=== PATIENT | female | born 1945 | race Caucasian/White ===

== ENCOUNTER 2017-08-28 08:04 | Day surgery (SDC) | payer MEDICARE, OTHER ==
[~2017-08-28] VITALS: Ht 165.1 cm; Wt 89.8 kg
[~2017-08-28 08:04] MED LIST: ACET325C5 PO; AMLO10TA2 PO; APIX5TAB PO; CALC600T12 PO; CETI10TA20 PO; DOCU100C37 PO; LISI1TAB6 PO
[2017-08-28 08:17] VITALS: BP 166/100
[2017-08-28] MEDS ORDERED: LACTATED RINGERS 1,000 ML IV PRN (08:20)
[2017-08-28] MEDS ORDERED: CLINDAMYCIN 600 MG/50 ML IVPB 50 ML IV ONE ×2 (08:30→09:18)
[2017-08-28] MEDS ORDERED: HEParin (CENTRAL IV FLUSH) 500 UNIT/5 ML SYR ONE (08:36)
[2017-08-28] MEDS ORDERED: 0.9% SODIUM CHLORIDE PF INJ 20 ML VIAL ONE (08:36)
[2017-08-28] MEDS ORDERED: fentaNYL INJECTION 100 MCG/2 ML AMP ONE (08:39)
[2017-08-28] MEDS ORDERED: MIDAZOLAM 2 MG/2 ML (VERSED) VIAL ONE (08:39)
[2017-08-28] MEDS ORDERED: proPOfol 200 MG/20 ML (DIPRIVAN) VIAL IV ONE (08:39)
[2017-08-28] MEDS ORDERED: ONDANSETRON 4 MG/2 ML (SDV) Z0FRAN IV ONE (08:45)
[2017-08-28] MEDS ORDERED: FAMOTIDINE 20MG/2ML IV (PEPCID) IV ONE (08:45)
[2017-08-28] MEDS ORDERED: LIDOCAINE/EPI 1%-1:200,000 (XYLOCAINE) 10 ML VIAL ONE (09:13)
[2017-08-28] MEDS ORDERED: FAMOTIDINE 20MG/2ML IV (PEPCID) ONE (09:18)
[2017-08-28] MEDS ORDERED: ONDANSETRON 4 MG/2 ML (SDV) Z0FRAN ONE (09:18)
--- NOTE | 2017-08-28 09:26 | Progress Note-Pre Operative ---
Pre-Operative Progress Note H&P Reviewed The H&P was reviewed, patient examined and no changes noted. Time Seen by Provider: 09:16 Date H&P Reviewed: August 28, 2017 Time H&P Reviewed: 09:18 Pre-Operative Diagnosis: BOB FALLON DO August 28, 2017 09:26
[2017-08-28] MEDS ORDERED: PROPOFOL INJECTION 50 ML IV ONE (10:03)
--- NOTE | 2017-08-28 10:17 | Progress Note-Post Operative ---
Post-Operative Progess Note Surgeon (s)/Mechanical Engineering Intern (s) Surgeon BOB JOHANSEN DO Mechanical Engineering Intern: none Pre-Operative Diagnosis Post-Operative Diagnosis Venous Insufficiency Procedure & Operative Findings Date of Procedure 08/28/17 Procedure Performed/Findings Barry-Cath placement with Flouroscopy guidance, right SC vein, right chest wall Anesthesia Type IV Sedation by PHLEBOTOMY TECH Estimated Blood Loss Estimated blood loss (mL): less than 5ml Specimens/Packing Specimens Removed none BOB JOHANSEN DO August 28, 2017 10:17
[2017-08-28] MEDS ORDERED: ACHD5005 PO (10:18)
--- NOTE | 2017-08-28 10:20 | Discharge Inst-Surgical ---
Discharge Inst-Surgical Depart Medication/Instructions New, Converted or Re-Newed RX: RX Given to Pt/Family Patient Instructions Follow up Appt: Make appointment for 1 week. Instructions: No lifting greater than 10 pounds. No strenuous activity. May shower in 24 hours, no tub bath or soaking. Use incentive spirometer at home as directed. No Smoking Skin/Wound Care: May remove bandages. You need to leave the Dermabond on over incision it will fall off on its own. Symptoms to Report: Appetite Changes, Extremity Discoloration, Numbness/Tingling, Swelling Increased , Bleeding Excessive, Eyesight Changes, Pain Increased, Urine Color Change, Constipation(Persistent), Fever over 101 degree F, Pain/Pressure in chest, Urinating Difficulty, Cough Up/Vomit Blood, Heart Beat Irreg/Pounding, Pain/ Pressure in jaw, Vaginal Bleeding Increase, Cramps in feet or legs, Lightheadedness, Pain/Pressure in shoulder, Diarrhea(Persistent), Memory Changes Suddenly, Questions/Concerns, Weight gain consecutive days, Dizziness/ Fainting, Nausea/Vomiting, Shortness of Breath, Weight gain over 2 pounds If questions or concerns contact your physician Or seek help at emergency department. Activity Activity as Tolerated: Yes Driving Instructions: No Driving/Refer to Dr. Ibarra Discharge Diet: No Restrictions If Any Problems/Questions/Issu: Contact Your Physician, Go to Emergency Room Skin/Wound Care Infection Signs and Symptoms: Increased Redness, Foul Odor of Wound, Increased Drainage, Skin Itchy or Has a Rash, Increased Swelling, Temperature Above 101 F Bathing Instructions: Shower Stitches/Leny/Dermabond Dis: BOB Salazar DO August 28, 2017 10:20
--- NOTE | 2017-08-28 10:24 | Anesthesia-General Post-Op ---
MAC Patient Condition Mental Status/LOC: Same as Preop Cardiovascular: Satisfactory Nausea/Vomiting: Absent Respiratory: Satisfactory Pain: Controlled Complications: Absent Post Op Complications Complications None Follow Up Care/Instructions Patient Instructions None needed. Anesthesiology Discharge Order Discharge Order Patient is doing well, no complaints, stable vital signs, no apparent adverse anesthesia problems. No complications reported per nursing. JENNY SIMMONS CRNA August 28, 2017 10:24
[2017-08-28 10:50] VITALS: BP 135/78
[2017-08-28 11:20] VITALS: BP 132/74
--- NOTE | 2017-08-28 11:21 | Diagnostic Imaging Report ---
INDICATION: Fluoroscopy or PowerPort placement. FINDINGS: A total of 6 seconds of fluoroscopy was provided in the OR for PowerPort placement. Images demonstrate a right subclavian port. The tip is difficult to see on this exam but appears to overlie the SVC. IMPRESSION: Fluoroscopy for PowerPort placement. Dictated by: Dictated on workstation # [id number]
--- NOTE | 2017-08-28 11:38 | Diagnostic Imaging Report ---
Indication: Port placement. Time of exam: 11:13 AM Right subclavian port has its tip at the SVC right atrial junction. No pneumothorax is seen. There is some linear scarring or atelectasis right perihilar region. Left lung is clear. No effusion is seen. Impression: Poor placement on the right, as described. No pneumothorax is seen. Dictated by: Dictated on workstation # [id number]
[2017-08-28 12:10] VITALS: BP 133/75
[2017-08-28 12:49] VITALS: BP 133/75
--- NOTE | 2017-08-28 18:53 | OPERATIVE REPORT ---
DATE OF SERVICE: 08/28/2017 PREOPERATIVE DIAGNOSES: 1. Venous insufficiency. 2. Endometrial cancer. POSTOPERATIVE DIAGNOSES: 1. Venous insufficiency. 2. Endometrial cancer. PROCEDURE: Port-A-Cath insertion in right anterior chest wall and right subclavian vein with fluoroscopy guidance. SURGEON: Federico Ovalle DO LATH HAND: None. ANESTHESIA: IV sedation by CHANNEL DIRECTOR. ESTIMATED BLOOD LOSS: Less than 5 mL. FLUIDS: Per anesthesia. POSTOPERATIVE CONDITION: Stable. INDICATION FOR PROCEDURE: The patient is a 71-year-old female, who unfortunately has some endometrial cancer and she has some venous insufficiency, needs chemotherapy and will need long-term access. FINDINGS: The patient had a Port-A-Cath placed in right anterior chest wall and right subclavian vein with fluoroscopy guidance. PROCEDURE NOTE: After informed consent was obtained, the patient was brought to the operating room, placed on the operating table in the supine position. She was sterilely prepped and draped in the normal fashion. Local lidocaine was used to infiltrate the right anterior chest wall as well as towards the right clavicle and then below this, the patient was placed slightly Trendelenburg and then advanced an 18-gauge finder needle with negative inspiration, cannulated the vein on the second attempt. Good flash of blood, removed the syringe, placed a guidewire down the needle using the Seldinger technique, it went in easily. I checked with fluoroscopy and the guidewire was down the superior vena cava, removed the needle, held this in place with a hemostat and then made a stab incision at the guidewire with #11 blade and then using a #11 blade to make a small incision in the right anterior chest wall to create a pocket for the port. Hemostasis was obtained using Bovie electrocautery and then created a pocket with Bovie electrocautery as well as blunt dissection. I was then able to use the tunneler to tunnel from the stab incision into this pocket previously created and then over the guidewire placed the dilator using the Seldinger technique, it went in easily, checked with fluoroscopy, it was in good position, removed the inner portion of the dilator as well as the guidewire and then placed the catheter down the dilator using Seldinger technique, checked with fluoroscopy, it was in good position, removed the dilator and then cut the catheter, attached the port to the catheter and then placed a locking mechanism. I then placed this into the pocket previously created, sutured this down to the pectoralis major muscle with a 3-0 Prolene suture and then accessed the port with a Boyce needle. Good flash of blood and then easily flushed with saline, removed the syringe and then aspirated again, I got a good flash of blood and then flushed with 2 mL of heparin. I then elected to close the incision, closing the subcutaneous tissue with 3-0 Vicryl with two interrupted sutures, closed the skin with 4-0 undyed Monocryl with 3 interrupted subcuticular stitches and then used another 4-0 undyed Monocryl single subcuticular stitch at the stab incision. The area was cleaned and dried. Dermabond was placed as well as a bandage. The patient was transferred to recovery room in stable condition. Sponge and needle counts are correct at the end of the case. A chest x-ray during the case, so no pneumothorax, catheter in good position. Job ID: [id number] DocumentID: [id number] Dictated Date: 08/28/2017 14:03:52 Performance Analyst Date: 08/28/2017 18:52:23 Dictated By: FEDERICO OVALLE DO
[2017-09-29] MEDS ORDERED: GABA-488 PO (10:51)
[2017-09-29] MEDS ORDERED: CYCL10TA9 PO (10:51)
[2017-09-29] MEDS ORDERED: ALPR0.254 PO (10:51)
[2017-09-29] MEDS ORDERED: ONDA8TAB12 PO (10:59)
[2017-09-29] MEDS ORDERED: DEXA4TAB PO (10:59)
[2017-09-29] MEDS ORDERED: POLY17PO6 PO (10:59)
[2017-09-29] MEDS ORDERED: ACET-2267 PO (11:02)
[2017-09-29] MEDS ORDERED: APIX5TAB PO ×3 (11:34→12:25)
[2017-09-29] MEDS ORDERED: RIVA20TA PO (11:59)
[2017-09-29] MEDS ORDERED: LEVO500T2 PO (11:59)
[2017-09-29] MEDS ORDERED: TRAM-42 PO (11:59)
== END 2017-08-28 12:49 | disposition home or self-care (01) ==
LOC: SDC 08:04
PROVIDERS: ATTEND Surgery
DX: C54.1 Malignant neoplasm of endometrium (principal); Z11.2 Encounter for screening for other bacterial diseases; I87.2 Venous insufficiency (chronic) (peripheral); Z88.1 Allergy status to other antibiotic agents; Z88.0 Allergy status to penicillin; Z88.5 Allergy status to narcotic agent
CPT/HCPCS: 71045; 87081

== ENCOUNTER 2017-10-26 09:20 | Outpatient (RCR) | payer MEDICARE, OTHER ==
[2017-08-31 10:11] LABS: BASOPHILS # (AUTO) 0.1 10^3/uL (0.0-0.1); BASOPHILS % (AUTO) 1 % (0-10); EOSINOPHILS # (AUTO) 0.6 10^3/uL (0.0-0.3); EOSINOPHILS % (AUTO) 7 % (0-10); HEMATOCRIT 45 % (35-52); HEMOGLOBIN 15.2 G/DL (11.5-16.0); LYMPHOCYTES # (AUTO) 2.2 X 10^3 (1.0-4.0); LYMPHOCYTES % (AUTO) 24 % (12-44); MEAN CORPUSCULAR HEMOGLOBIN 31 PG (25-34); MEAN CORPUSCULAR HGB CONC 34 G/DL (32-36); MEAN CORPUSCULAR VOLUME 92 FL (80-99); MEAN PLATELET VOLUME 11.5 FL (7.4-10.4); MONOCYTES # (AUTO) 0.7 X 10^3 (0.0-1.0); MONOCYTES % (AUTO) 8 % (0-12); NEUTROPHILS # (AUTO) 5.5 X 10^3 (1.8-7.8); NEUTROPHILS % (AUTO) 60 % (42-75); PLATELET COUNT 233 10^3/uL (130-400); RED BLOOD COUNT 4.87 10^6/uL (4.35-5.85); RED CELL DISTRIBUTION WIDTH 14.7 % (10.0-14.5); WHITE BLOOD COUNT 9.1 10^3/uL (4.3-11.0)
[2017-08-31 10:33] LABS: ALBUMIN 4.3 GM/DL (3.2-4.5); BILIRUBIN,TOTAL 0.5 MG/DL (0.1-1.0); CALCIUM 9.9 MG/DL (8.5-10.1); CREATININE SERUM 0.97 MG/DL (0.60-1.30); MAGNESIUM 2.3 MG/DL (1.8-2.4); POTASSIUM 4.1 MMOL/L (3.6-5.0); TOTAL PROTEIN 7.3 GM/DL (6.4-8.2)
[2017-09-13 15:02] LABS: BASOPHILS # (AUTO) 0.1 10^3/uL (0.0-0.1); BASOPHILS % (AUTO) 1 % (0-10); EOSINOPHILS # (AUTO) 0.7 10^3/uL (0.0-0.3); EOSINOPHILS % (AUTO) 6 % (0-10); HEMATOCRIT 43 % (35-52); HEMOGLOBIN 14.8 G/DL (11.5-16.0); LYMPHOCYTES # (AUTO) 3.7 X 10^3 (1.0-4.0); LYMPHOCYTES % (AUTO) 34 % (12-44); MEAN CORPUSCULAR HEMOGLOBIN 31 PG (25-34); MEAN CORPUSCULAR HGB CONC 34 G/DL (32-36); MEAN CORPUSCULAR VOLUME 92 FL (80-99); MEAN PLATELET VOLUME 11.3 FL (7.4-10.4); MONOCYTES # (AUTO) 1.6 X 10^3 (0.0-1.0); MONOCYTES % (AUTO) 15 % (0-12); NEUTROPHILS % (AUTO) 45 % (42-75); PLATELET COUNT 187 10^3/uL (130-400); RED BLOOD COUNT 4.71 10^6/uL (4.35-5.85); RED CELL DISTRIBUTION WIDTH 14.6 % (10.0-14.5); WHITE BLOOD COUNT 11.1 10^3/uL (4.3-11.0)
[2017-09-13 15:16] LABS: BUN/CREATININE RATIO 30; CALCIUM 9.7 MG/DL (8.5-10.1); CARBON DIOXIDE 23 MMOL/L (21-32); CHLORIDE 102 MMOL/L (98-107); CREATININE SERUM 0.86 MG/DL (0.60-1.30); GFR ESTIMATED > 60; GLUCOSE 111 MG/DL (70-105); POTASSIUM 3.7 MMOL/L (3.6-5.0); SODIUM 137 MMOL/L (135-145)
[2017-10-05 09:11] LABS: BASOPHILS # (AUTO) 0.1 10^3/uL (0.0-0.1); BASOPHILS % (AUTO) 1 % (0-10); EOSINOPHILS # (AUTO) 0.4 10^3/uL (0.0-0.3); EOSINOPHILS % (AUTO) 6 % (0-10); HEMATOCRIT 44 % (35-52); HEMOGLOBIN 14.8 G/DL (11.5-16.0); LYMPHOCYTES # (AUTO) 1.8 X 10^3 (1.0-4.0); LYMPHOCYTES % (AUTO) 28 % (12-44); MEAN CORPUSCULAR HEMOGLOBIN 31 PG (25-34); MEAN CORPUSCULAR HGB CONC 34 G/DL (32-36); MEAN CORPUSCULAR VOLUME 93 FL (80-99); MEAN PLATELET VOLUME 10.6 FL (7.4-10.4); MONOCYTES # (AUTO) 0.5 X 10^3 (0.0-1.0); MONOCYTES % (AUTO) 8 % (0-12); NEUTROPHILS # (AUTO) 3.5 X 10^3 (1.8-7.8); NEUTROPHILS % (AUTO) 56 % (42-75); PLATELET COUNT 277 10^3/uL (130-400); RED BLOOD COUNT 4.72 10^6/uL (4.35-5.85); RED CELL DISTRIBUTION WIDTH 14.8 % (10.0-14.5); WHITE BLOOD COUNT 6.2 10^3/uL (4.3-11.0)
[2017-10-05 09:29] LABS: ALBUMIN 4.2 GM/DL (3.2-4.5); BILIRUBIN,TOTAL 0.5 MG/DL (0.1-1.0); CALCIUM 10.3 MG/DL (8.5-10.1); CREATININE SERUM 1.03 MG/DL (0.60-1.30); MAGNESIUM 2.5 MG/DL (1.8-2.4); TOTAL PROTEIN 7.4 GM/DL (6.4-8.2)
[~2017-10-26] VITALS: Ht 137.2 cm; Wt 88.0 kg
[~2017-10-26 09:20] MED LIST changes: +ACET-2267 PO; +ACHD5005 PO; +ALPR0.254 PO; +CARBOPLATIN IV SCH; +CYCL10TA9 PO; +D5W IV SCH; +DEXA4TAB PO; +FAMOTIDINE 20MG/2ML IV (CANCER CTR) IV SCH; +FOSAPREPITANT DIMEGLUMINE 150 MG in NS (IVPB) CANCER CENTER ONLY 150 ML IV SCH; +GABA-488 PO; +LEVO500T2 PO; +LORazepam 0.5 MG (ATIVAN) TABLET CANCER CTR PO PRN; +LORazepam INJ 2 MG/ML VIAL CANCER CTR IV SCH; +NORMAL SALINE IV SCH; +NS IV 1000 ML (CANCER CTR) IV SCH; +ONDA8TAB12 PO; +PACLITAXEL IV SCH; +PALONOSETRON HCL 0.25 MG, DEXAMETHASONE PF INJ (CANCER C 10 MG in NS (IVPB) CANCER CENT... IV SCH; +PEGFILGRASTIM 6 MG/0.6ML NEULASTA SC SCH; +POLY17PO6 PO; +RIVA20TA PO; +TRAM-42 PO; +diphenhydrAMINE 25 MG TAB (BENADRYL) CANCER CENTER PO SCH; +diphenhydrAMINE 50 MG/ML INJ (CANCER CENTER) ONE
[2017-10-26 09:35] LABS: BASOPHILS # (AUTO) 0.1 10^3/uL (0.0-0.1); BASOPHILS % (AUTO) 1 % (0-10); EOSINOPHILS # (AUTO) 0.2 10^3/uL (0.0-0.3); EOSINOPHILS % (AUTO) 4 % (0-10); HEMATOCRIT 45 % (35-52); HEMOGLOBIN 14.7 G/DL (11.5-16.0); LYMPHOCYTES # (AUTO) 1.5 X 10^3 (1.0-4.0); LYMPHOCYTES % (AUTO) 25 % (12-44); MEAN CORPUSCULAR HEMOGLOBIN 31 PG (25-34); MEAN CORPUSCULAR HGB CONC 33 G/DL (32-36); MEAN CORPUSCULAR VOLUME 93 FL (80-99); MEAN PLATELET VOLUME 10.6 FL (7.4-10.4); MONOCYTES # (AUTO) 0.4 X 10^3 (0.0-1.0); MONOCYTES % (AUTO) 7 % (0-12); NEUTROPHILS % (AUTO) 64 % (42-75); PLATELET COUNT 188 10^3/uL (130-400); RED BLOOD COUNT 4.82 10^6/uL (4.35-5.85); WHITE BLOOD COUNT 6.2 10^3/uL (4.3-11.0)
[2017-10-26 09:52] LABS: BUN/CREATININE RATIO 15; CALCIUM 10.1 MG/DL (8.5-10.1); CARBON DIOXIDE 28 MMOL/L (21-32); CHLORIDE 105 MMOL/L (98-107); CREATININE SERUM 0.87 MG/DL (0.60-1.30); GFR ESTIMATED > 60; GLUCOSE 107 MG/DL (70-105); POTASSIUM 3.9 MMOL/L (3.6-5.0); SODIUM 141 MMOL/L (135-145)
[2017-11-02 09:33] LABS: BASOPHILS % (AUTO) 0 % (0-10); EOSINOPHILS % (AUTO) 0 % (0-10); HEMATOCRIT 44 % (35-52); HEMOGLOBIN 14.7 G/DL (11.5-16.0); LYMPHOCYTES # (AUTO) 0.6 X 10^3 (1.0-4.0); LYMPHOCYTES % (AUTO) 8 % (12-44); MEAN CORPUSCULAR HEMOGLOBIN 31 PG (25-34); MEAN CORPUSCULAR HGB CONC 34 G/DL (32-36); MEAN CORPUSCULAR VOLUME 92 FL (80-99); MEAN PLATELET VOLUME 10.7 FL (7.4-10.4); MONOCYTES % (AUTO) 0 % (0-12); NEUTROPHILS % (AUTO) 91 % (42-75); PLATELET COUNT 323 10^3/uL (130-400); RED BLOOD COUNT 4.74 10^6/uL (4.35-5.85); WHITE BLOOD COUNT 7.6 10^3/uL (4.3-11.0)
[2017-11-02 09:53] LABS: ALBUMIN 4.5 GM/DL (3.2-4.5); BILIRUBIN,TOTAL 0.4 MG/DL (0.1-1.0); CREATININE SERUM 1.07 MG/DL (0.60-1.30); TOTAL PROTEIN 7.5 GM/DL (6.4-8.2)
== END 2017-11-02 09:08 | disposition home or self-care (01) ==
LOC: ONC 09:20
PROVIDERS: ATTEND Internal Medicine Hematology & Oncology
DX: Z51.11 Encounter for antineoplastic chemotherapy (principal); C54.1 Malignant neoplasm of endometrium; C77.5 Secondary and unspecified malignant neoplasm of intrapelvic lymph nodes; I10 Essential (primary) hypertension; I27.82 Chronic pulmonary embolism; E66.01 Morbid (severe) obesity due to excess calories; Z68.42 Body mass index [BMI] 45.0-49.9, adult; Z76.89 Persons encountering health services in other specified circumstances; Z79.01 Long term (current) use of anticoagulants; Z79.899 Other long term (current) drug therapy; Z90.710 Acquired absence of both cervix and uterus
CPT/HCPCS: 36415; 80048; 80053; 83735; 84443; 85025; 96367; 96372; 96375; 96413; 96415; 96417; 99213; 99214

== ENCOUNTER 2018-01-05 13:42 | Outpatient (RCR) | payer MEDICARE, OTHER ==
[2017-11-09 14:01] LABS: BASOPHILS # (AUTO) 0.3 10^3/uL (0.0-0.1); BASOPHILS % (AUTO) 2 % (0-10); EOSINOPHILS # (AUTO) 0.7 10^3/uL (0.0-0.3); EOSINOPHILS % (AUTO) 5 % (0-10); HEMATOCRIT 44 % (35-52); HEMOGLOBIN 14.2 G/DL (11.5-16.0); LYMPHOCYTES % (AUTO) 20 % (12-44); MEAN CORPUSCULAR HEMOGLOBIN 31 PG (25-34); MEAN CORPUSCULAR HGB CONC 33 G/DL (32-36); MEAN CORPUSCULAR VOLUME 94 FL (80-99); MEAN PLATELET VOLUME 10.8 FL (7.4-10.4); MONOCYTES # (AUTO) 1.9 X 10^3 (0.0-1.0); MONOCYTES % (AUTO) 13 % (0-12); NEUTROPHILS # (AUTO) 9.2 X 10^3 (1.8-7.8); NEUTROPHILS % (AUTO) 61 % (42-75); PLATELET COUNT 239 10^3/uL (130-400); RED BLOOD COUNT 4.65 10^6/uL (4.35-5.85); WHITE BLOOD COUNT 15.1 10^3/uL (4.3-11.0)
[2017-11-09 14:20] LABS: CALCIUM 10.3 MG/DL (8.5-10.1); CREATININE SERUM 0.94 MG/DL (0.60-1.30); POTASSIUM 4.5 MMOL/L (3.6-5.0)
[2017-12-14 14:06] LABS: BASOPHILS % (AUTO) 1 % (0-10); EOSINOPHILS # (AUTO) 0.2 10^3/uL (0.0-0.3); EOSINOPHILS % (AUTO) 4 % (0-10); HEMATOCRIT 40 % (35-52); HEMOGLOBIN 13.3 G/DL (11.5-16.0); LYMPHOCYTES # (AUTO) 0.9 X 10^3 (1.0-4.0); LYMPHOCYTES % (AUTO) 13 % (12-44); MEAN CORPUSCULAR HEMOGLOBIN 31 PG (25-34); MEAN CORPUSCULAR HGB CONC 33 G/DL (32-36); MEAN CORPUSCULAR VOLUME 93 FL (80-99); MEAN PLATELET VOLUME 10.7 FL (7.4-10.4); MONOCYTES # (AUTO) 0.6 X 10^3 (0.0-1.0); MONOCYTES % (AUTO) 8 % (0-12); NEUTROPHILS % (AUTO) 74 % (42-75); PLATELET COUNT 163 10^3/uL (130-400); RED BLOOD COUNT 4.33 10^6/uL (4.35-5.85); WHITE BLOOD COUNT 6.7 10^3/uL (4.3-11.0)
[2017-12-14 14:25] LABS: ALANINE AMINOTRANSFERASE 240 U/L (0-55); ALBUMIN 4.1 GM/DL (3.2-4.5); ALKALINE PHOSPHATASE 100 U/L (40-136); BILIRUBIN,TOTAL 0.7 MG/DL (0.1-1.0); BUN/CREATININE RATIO 24; CALCIUM 9.6 MG/DL (8.5-10.1); CARBON DIOXIDE 26 MMOL/L (21-32); CHLORIDE 104 MMOL/L (98-107); CREATININE SERUM 0.83 MG/DL (0.60-1.30); GFR ESTIMATED > 60; GLUCOSE 105 MG/DL (70-105); MAGNESIUM 2.1 MG/DL (1.8-2.4); POTASSIUM 3.3 MMOL/L (3.6-5.0); SODIUM 138 MMOL/L (135-145); TOTAL PROTEIN 6.9 GM/DL (6.4-8.2)
[~2018-01-05] VITALS: Ht 137.2 cm; Wt 88.9 kg
[~2018-01-05 13:42] MED LIST changes: -AMLO10TA2 PO; +AMLO10TA6 PO; -LORazepam INJ 2 MG/ML VIAL CANCER CTR IV SCH; -diphenhydrAMINE 50 MG/ML INJ (CANCER CENTER) ONE
== END 2018-01-08 13:38 | disposition home or self-care (01) ==
LOC: ONC 13:42
PROVIDERS: ATTEND Internal Medicine Hematology & Oncology
DX: Z51.11 Encounter for antineoplastic chemotherapy (principal); C54.1 Malignant neoplasm of endometrium; C77.5 Secondary and unspecified malignant neoplasm of intrapelvic lymph nodes; I10 Essential (primary) hypertension; I27.82 Chronic pulmonary embolism; E66.01 Morbid (severe) obesity due to excess calories; Z68.42 Body mass index [BMI] 45.0-49.9, adult; Z79.01 Long term (current) use of anticoagulants; Z79.899 Other long term (current) drug therapy; Z90.710 Acquired absence of both cervix and uterus
CPT/HCPCS: 36591; 77290; 77300; 77301; 77334; 77336; 77338; 77386; 80048; 80053; 83735; 85025; 96367; 96372; 96375; 96413; 96415; 96417; 99204; 99211

== ENCOUNTER 2018-04-04 12:03 | Outpatient (RCR) | payer MEDICARE, OTHER ==
[2018-01-17 10:09] LABS: BASOPHILS % (AUTO) 1 % (0-10); EOSINOPHILS # (AUTO) 0.2 10^3/uL (0.0-0.3); EOSINOPHILS % (AUTO) 3 % (0-10); HEMATOCRIT 43 % (35-52); HEMOGLOBIN 14.6 G/DL (11.5-16.0); LYMPHOCYTES # (AUTO) 0.5 X 10^3 (1.0-4.0); LYMPHOCYTES % (AUTO) 7 % (12-44); MEAN CORPUSCULAR HEMOGLOBIN 32 PG (25-34); MEAN CORPUSCULAR HGB CONC 34 G/DL (32-36); MEAN CORPUSCULAR VOLUME 93 FL (80-99); MEAN PLATELET VOLUME 10.7 FL (7.4-10.4); MONOCYTES # (AUTO) 0.6 X 10^3 (0.0-1.0); MONOCYTES % (AUTO) 9 % (0-12); NEUTROPHILS # (AUTO) 5.1 X 10^3 (1.8-7.8); NEUTROPHILS % (AUTO) 81 % (42-75); PLATELET COUNT 229 10^3/uL (130-400); RED BLOOD COUNT 4.63 10^6/uL (4.35-5.85); RED CELL DISTRIBUTION WIDTH 14.9 % (10.0-14.5); WHITE BLOOD COUNT 6.3 10^3/uL (4.3-11.0)
[2018-01-17 10:47] LABS: ALANINE AMINOTRANSFERASE 101 U/L (0-55); ALBUMIN 4.1 GM/DL (3.2-4.5); ALKALINE PHOSPHATASE 129 U/L (40-136); BILIRUBIN,TOTAL 0.7 MG/DL (0.1-1.0); BUN/CREATININE RATIO 15; CALCIUM 9.7 MG/DL (8.5-10.1); CARBON DIOXIDE 23 MMOL/L (21-32); CHLORIDE 103 MMOL/L (98-107); CREATININE SERUM 0.91 MG/DL (0.60-1.30); GFR ESTIMATED > 60; GLUCOSE 110 MG/DL (70-105); POTASSIUM 3.4 MMOL/L (3.6-5.0); SODIUM 138 MMOL/L (135-145)
[2018-02-14 09:11] LABS: BASOPHILS % (AUTO) 0 % (0-10); EOSINOPHILS % (AUTO) 0 % (0-10); HEMATOCRIT 45 % (35-52); LYMPHOCYTES # (AUTO) 0.4 X 10^3 (1.0-4.0); LYMPHOCYTES % (AUTO) 4 % (12-44); MEAN CORPUSCULAR HEMOGLOBIN 31 PG (25-34); MEAN CORPUSCULAR HGB CONC 34 G/DL (32-36); MEAN CORPUSCULAR VOLUME 93 FL (80-99); MEAN PLATELET VOLUME 10.2 FL (7.4-10.4); MONOCYTES # (AUTO) 0.1 X 10^3 (0.0-1.0); MONOCYTES % (AUTO) 1 % (0-12); NEUTROPHILS # (AUTO) 7.6 X 10^3 (1.8-7.8); NEUTROPHILS % (AUTO) 95 % (42-75); PLATELET COUNT 219 10^3/uL (130-400); RED BLOOD COUNT 4.81 10^6/uL (4.35-5.85); RED CELL DISTRIBUTION WIDTH 14.3 % (10.0-14.5)
[2018-02-14 09:36] LABS: ALBUMIN 4.3 GM/DL (3.2-4.5); BILIRUBIN,TOTAL 0.5 MG/DL (0.1-1.0); CALCIUM 9.9 MG/DL (8.5-10.1); CREATININE SERUM 1.08 MG/DL (0.60-1.30); TOTAL PROTEIN 7.4 GM/DL (6.4-8.2)
[2018-02-21 13:14] LABS: BASOPHILS # (AUTO) 0.1 10^3/uL (0.0-0.1); BASOPHILS % (AUTO) 2 % (0-10); EOSINOPHILS # (AUTO) 0.4 10^3/uL (0.0-0.3); EOSINOPHILS % (AUTO) 7 % (0-10); HEMATOCRIT 44 % (35-52); HEMOGLOBIN 14.7 G/DL (11.5-16.0); LYMPHOCYTES % (AUTO) 15 % (12-44); MEAN CORPUSCULAR HEMOGLOBIN 31 PG (25-34); MEAN CORPUSCULAR HGB CONC 33 G/DL (32-36); MEAN CORPUSCULAR VOLUME 93 FL (80-99); MEAN PLATELET VOLUME 10.9 FL (7.4-10.4); MONOCYTES # (AUTO) 1.2 X 10^3 (0.0-1.0); MONOCYTES % (AUTO) 18 % (0-12); NEUTROPHILS # (AUTO) 3.7 X 10^3 (1.8-7.8); NEUTROPHILS % (AUTO) 58 % (42-75); PLATELET COUNT 137 10^3/uL (130-400); RED BLOOD COUNT 4.76 10^6/uL (4.35-5.85); RED CELL DISTRIBUTION WIDTH 14.7 % (10.0-14.5); WHITE BLOOD COUNT 6.4 10^3/uL (4.3-11.0)
[2018-02-21 13:33] LABS: CREATININE SERUM 1.01 MG/DL (0.60-1.30); POTASSIUM 3.9 MMOL/L (3.6-5.0)
[2018-02-27 09:16] LABS: BASOPHILS # (AUTO) 0.1 10^3/uL (0.0-0.1); BASOPHILS % (AUTO) 2 % (0-10); EOSINOPHILS # (AUTO) 0.2 10^3/uL (0.0-0.3); EOSINOPHILS % (AUTO) 4 % (0-10); HEMATOCRIT 44 % (35-52); HEMOGLOBIN 14.5 G/DL (11.5-16.0); LYMPHOCYTES # (AUTO) 0.8 X 10^3 (1.0-4.0); LYMPHOCYTES % (AUTO) 17 % (12-44); MEAN CORPUSCULAR HEMOGLOBIN 31 PG (25-34); MEAN CORPUSCULAR HGB CONC 33 G/DL (32-36); MEAN CORPUSCULAR VOLUME 94 FL (80-99); MEAN PLATELET VOLUME 10.4 FL (7.4-10.4); MONOCYTES # (AUTO) 0.3 X 10^3 (0.0-1.0); MONOCYTES % (AUTO) 7 % (0-12); NEUTROPHILS # (AUTO) 3.3 X 10^3 (1.8-7.8); NEUTROPHILS % (AUTO) 71 % (42-75); PLATELET COUNT 162 10^3/uL (130-400); RED BLOOD COUNT 4.68 10^6/uL (4.35-5.85); WHITE BLOOD COUNT 4.6 10^3/uL (4.3-11.0)
[2018-02-27 09:35] LABS: CALCIUM 10.1 MG/DL (8.5-10.1); CREATININE SERUM 0.92 MG/DL (0.60-1.30); POTASSIUM 3.8 MMOL/L (3.6-5.0)
[2018-03-08 08:52] LABS: BASOPHILS % (AUTO) 0 % (0-10); EOSINOPHILS % (AUTO) 0 % (0-10); HEMATOCRIT 42 % (35-52); HEMOGLOBIN 13.8 G/DL (11.5-16.0); LYMPHOCYTES # (AUTO) 0.4 X 10^3 (1.0-4.0); LYMPHOCYTES % (AUTO) 7 % (12-44); MEAN CORPUSCULAR HEMOGLOBIN 31 PG (25-34); MEAN CORPUSCULAR HGB CONC 33 G/DL (32-36); MEAN CORPUSCULAR VOLUME 94 FL (80-99); MEAN PLATELET VOLUME 9.9 FL (7.4-10.4); MONOCYTES % (AUTO) 0 % (0-12); NEUTROPHILS % (AUTO) 92 % (42-75); PLATELET COUNT 230 10^3/uL (130-400); RED BLOOD COUNT 4.48 10^6/uL (4.35-5.85); RED CELL DISTRIBUTION WIDTH 15.2 % (10.0-14.5); WHITE BLOOD COUNT 5.4 10^3/uL (4.3-11.0)
[2018-03-08 09:09] LABS: ALBUMIN 4.3 GM/DL (3.2-4.5); BILIRUBIN,TOTAL 0.4 MG/DL (0.1-1.0); CREATININE SERUM 0.96 MG/DL (0.60-1.30); MAGNESIUM 1.9 MG/DL (1.8-2.4); POTASSIUM 3.9 MMOL/L (3.6-5.0); TOTAL PROTEIN 7.2 GM/DL (6.4-8.2)
[2018-03-13 13:17] LABS: BASOPHILS # (AUTO) 0.1 10^3/uL (0.0-0.1); BASOPHILS % (AUTO) 1 % (0-10); EOSINOPHILS # (AUTO) 0.5 10^3/uL (0.0-0.3); EOSINOPHILS % (AUTO) 5 % (0-10); HEMATOCRIT 42 % (35-52); HEMOGLOBIN 13.7 G/DL (11.5-16.0); LYMPHOCYTES # (AUTO) 0.8 X 10^3 (1.0-4.0); LYMPHOCYTES % (AUTO) 9 % (12-44); MEAN CORPUSCULAR HEMOGLOBIN 32 PG (25-34); MEAN CORPUSCULAR HGB CONC 33 G/DL (32-36); MEAN CORPUSCULAR VOLUME 95 FL (80-99); MEAN PLATELET VOLUME 10.7 FL (7.4-10.4); MONOCYTES # (AUTO) 0.4 X 10^3 (0.0-1.0); MONOCYTES % (AUTO) 4 % (0-12); NEUTROPHILS # (AUTO) 7.9 X 10^3 (1.8-7.8); NEUTROPHILS % (AUTO) 81 % (42-75); PLATELET COUNT 143 10^3/uL (130-400); RED BLOOD COUNT 4.35 10^6/uL (4.35-5.85); WHITE BLOOD COUNT 9.8 10^3/uL (4.3-11.0)
[2018-03-13 13:42] LABS: BUN/CREATININE RATIO 23; CALCIUM 9.8 MG/DL (8.5-10.1); CARBON DIOXIDE 28 MMOL/L (21-32); CHLORIDE 102 MMOL/L (98-107); CREATININE SERUM 0.82 MG/DL (0.60-1.30); GFR ESTIMATED > 60; GLUCOSE 91 MG/DL (70-105); POTASSIUM 4.4 MMOL/L (3.6-5.0); SODIUM 140 MMOL/L (135-145)
[2018-03-21 09:50] LABS: BASOPHILS # (AUTO) 0.1 10^3/uL (0.0-0.1); BASOPHILS % (AUTO) 1 % (0-10); EOSINOPHILS # (AUTO) 0.2 10^3/uL (0.0-0.3); EOSINOPHILS % (AUTO) 5 % (0-10); HEMATOCRIT 42 % (35-52); HEMOGLOBIN 14.2 G/DL (11.5-16.0); LYMPHOCYTES # (AUTO) 0.7 X 10^3 (1.0-4.0); LYMPHOCYTES % (AUTO) 16 % (12-44); MEAN CORPUSCULAR HEMOGLOBIN 32 PG (25-34); MEAN CORPUSCULAR HGB CONC 34 G/DL (32-36); MEAN CORPUSCULAR VOLUME 95 FL (80-99); MEAN PLATELET VOLUME 9.9 FL (7.4-10.4); MONOCYTES # (AUTO) 0.3 X 10^3 (0.0-1.0); MONOCYTES % (AUTO) 7 % (0-12); NEUTROPHILS # (AUTO) 3.2 X 10^3 (1.8-7.8); NEUTROPHILS % (AUTO) 71 % (42-75); PLATELET COUNT 159 10^3/uL (130-400); RED BLOOD COUNT 4.44 10^6/uL (4.35-5.85); RED CELL DISTRIBUTION WIDTH 16.4 % (10.0-14.5); WHITE BLOOD COUNT 4.5 10^3/uL (4.3-11.0)
[2018-03-21 10:07] LABS: CALCIUM 9.7 MG/DL (8.5-10.1); CREATININE SERUM 0.96 MG/DL (0.60-1.30); POTASSIUM 3.9 MMOL/L (3.6-5.0)
[2018-03-28 08:48] LABS: BASOPHILS % (AUTO) 0 % (0-10); EOSINOPHILS % (AUTO) 0 % (0-10); HEMATOCRIT 41 % (35-52); HEMOGLOBIN 13.7 G/DL (11.5-16.0); LYMPHOCYTES # (AUTO) 0.4 X 10^3 (1.0-4.0); LYMPHOCYTES % (AUTO) 8 % (12-44); MEAN CORPUSCULAR HEMOGLOBIN 31 PG (25-34); MEAN CORPUSCULAR HGB CONC 33 G/DL (32-36); MEAN CORPUSCULAR VOLUME 94 FL (80-99); MONOCYTES % (AUTO) 1 % (0-12); NEUTROPHILS # (AUTO) 4.6 X 10^3 (1.8-7.8); NEUTROPHILS % (AUTO) 92 % (42-75); PLATELET COUNT 211 10^3/uL (130-400); RED BLOOD COUNT 4.37 10^6/uL (4.35-5.85); RED CELL DISTRIBUTION WIDTH 16.1 % (10.0-14.5); WHITE BLOOD COUNT 5.1 10^3/uL (4.3-11.0)
[2018-03-28 09:06] LABS: ALBUMIN 4.3 GM/DL (3.2-4.5); BILIRUBIN,TOTAL 0.4 MG/DL (0.1-1.0); CALCIUM 9.9 MG/DL (8.5-10.1); CREATININE SERUM 1.08 MG/DL (0.60-1.30); MAGNESIUM 2.1 MG/DL (1.8-2.4); TOTAL PROTEIN 7.2 GM/DL (6.4-8.2)
[~2018-04-04] VITALS: Ht 165.1 cm; Wt 88.0 kg
[~2018-04-04 12:03] MED LIST changes: +PALONOSETRON HCL 0.25 MG, DEXAMETHASONE INJECTION 10 MG in NS (IVPB) CANCER CENTER 50 ML IV SCH; -PALONOSETRON HCL 0.25 MG, DEXAMETHASONE PF INJ (CANCER C 10 MG in NS (IVPB) CANCER CENT... IV SCH
[2018-04-04 12:31] LABS: BASOPHILS # (AUTO) 0.1 10^3/uL (0.0-0.1); BASOPHILS % (AUTO) 1 % (0-10); EOSINOPHILS # (AUTO) 0.9 10^3/uL (0.0-0.3); EOSINOPHILS % (AUTO) 9 % (0-10); HEMATOCRIT 39 % (35-52); LYMPHOCYTES # (AUTO) 1.2 X 10^3 (1.0-4.0); LYMPHOCYTES % (AUTO) 12 % (12-44); MEAN CORPUSCULAR HEMOGLOBIN 32 PG (25-34); MEAN CORPUSCULAR HGB CONC 33 G/DL (32-36); MEAN CORPUSCULAR VOLUME 96 FL (80-99); MEAN PLATELET VOLUME 10.1 FL (7.4-10.4); MONOCYTES # (AUTO) 1.3 X 10^3 (0.0-1.0); MONOCYTES % (AUTO) 13 % (0-12); NEUTROPHILS # (AUTO) 6.4 X 10^3 (1.8-7.8); NEUTROPHILS % (AUTO) 64 % (42-75); PLATELET COUNT 151 10^3/uL (130-400); RED BLOOD COUNT 4.06 10^6/uL (4.35-5.85); RED CELL DISTRIBUTION WIDTH 16.5 % (10.0-14.5)
[2018-04-04 12:44] LABS: BUN/CREATININE RATIO 21; CALCIUM 9.4 MG/DL (8.5-10.1); CARBON DIOXIDE 27 MMOL/L (21-32); CHLORIDE 104 MMOL/L (98-107); CREATININE SERUM 0.84 MG/DL (0.60-1.30); GFR ESTIMATED > 60; GLUCOSE 100 MG/DL (70-105); SODIUM 141 MMOL/L (135-145)
== END 2018-04-08 | disposition home or self-care (01) ==
LOC: ONC 12:03
PROVIDERS: ATTEND Internal Medicine Hematology & Oncology
DX: Z51.0 Encounter for antineoplastic radiation therapy (principal); Z51.11 Encounter for antineoplastic chemotherapy; C54.1 Malignant neoplasm of endometrium; C77.5 Secondary and unspecified malignant neoplasm of intrapelvic lymph nodes; I10 Essential (primary) hypertension; I27.82 Chronic pulmonary embolism; E66.01 Morbid (severe) obesity due to excess calories; Z68.42 Body mass index [BMI] 45.0-49.9, adult; Z79.01 Long term (current) use of anticoagulants; Z79.899 Other long term (current) drug therapy; Z90.710 Acquired absence of both cervix and uterus
CPT/HCPCS: 36415; 36591; 77336; 77386; 80048; 80053; 83735; 85025; 96367; 96372; 96375; 96413; 96415; 96417; 99212; 99213

== ENCOUNTER 2018-04-26 09:51 | Outpatient (RCR) | payer MEDICARE, OTHER ==
[2018-04-11 12:20] LABS: BASOPHILS # (AUTO) 0.1 10^3/uL (0.0-0.1); BASOPHILS % (AUTO) 1 % (0-10); EOSINOPHILS # (AUTO) 0.4 10^3/uL (0.0-0.3); EOSINOPHILS % (AUTO) 4 % (0-10); HEMATOCRIT 42 % (35-52); LYMPHOCYTES # (AUTO) 1.3 X 10^3 (1.0-4.0); LYMPHOCYTES % (AUTO) 13 % (12-44); MEAN CORPUSCULAR HEMOGLOBIN 32 PG (25-34); MEAN CORPUSCULAR HGB CONC 33 G/DL (32-36); MEAN CORPUSCULAR VOLUME 96 FL (80-99); MEAN PLATELET VOLUME 10.1 FL (7.4-10.4); MONOCYTES # (AUTO) 0.7 X 10^3 (0.0-1.0); MONOCYTES % (AUTO) 7 % (0-12); NEUTROPHILS # (AUTO) 7.8 X 10^3 (1.8-7.8); NEUTROPHILS % (AUTO) 76 % (42-75); PLATELET COUNT 196 10^3/uL (130-400); RED CELL DISTRIBUTION WIDTH 17.4 % (10.0-14.5); WHITE BLOOD COUNT 10.4 10^3/uL (4.3-11.0)
[2018-04-11 12:31] LABS: CALCIUM 9.6 MG/DL (8.5-10.1); CREATININE SERUM 1.1 MG/DL (0.60-1.30); POTASSIUM 3.7 MMOL/L (3.6-5.0)
[2018-04-16 16:14] LABS: BASOPHILS # (AUTO) 0.1 10^3/uL (0.0-0.1); BASOPHILS % (AUTO) 1 % (0-10); EOSINOPHILS # (AUTO) 0.4 10^3/uL (0.0-0.3); EOSINOPHILS % (AUTO) 7 % (0-10); HEMATOCRIT 38 % (35-52); HEMOGLOBIN 12.5 G/DL (11.5-16.0); LYMPHOCYTES % (AUTO) 17 % (12-44); MEAN CORPUSCULAR HEMOGLOBIN 32 PG (25-34); MEAN CORPUSCULAR HGB CONC 33 G/DL (32-36); MEAN CORPUSCULAR VOLUME 97 FL (80-99); MEAN PLATELET VOLUME 9.9 FL (7.4-10.4); MONOCYTES # (AUTO) 0.7 X 10^3 (0.0-1.0); MONOCYTES % (AUTO) 13 % (0-12); NEUTROPHILS # (AUTO) 3.5 X 10^3 (1.8-7.8); NEUTROPHILS % (AUTO) 62 % (42-75); PLATELET COUNT 180 10^3/uL (130-400); RED CELL DISTRIBUTION WIDTH 16.8 % (10.0-14.5); WHITE BLOOD COUNT 5.6 10^3/uL (4.3-11.0)
[2018-04-16 16:27] LABS: CALCIUM 9.2 MG/DL (8.5-10.1); CREATININE SERUM 0.92 MG/DL (0.60-1.30); POTASSIUM 3.4 MMOL/L (3.6-5.0)
[~2018-04-26 09:51] MED LIST changes: -AMLO10TA6 PO; +AMLO10TA7 PO; -CARBOPLATIN IV SCH; -D5W IV SCH; -FAMOTIDINE 20MG/2ML IV (CANCER CTR) IV SCH; -FOSAPREPITANT DIMEGLUMINE 150 MG in NS (IVPB) CANCER CENTER ONLY 150 ML IV SCH; -LORazepam 0.5 MG (ATIVAN) TABLET CANCER CTR PO PRN; -NORMAL SALINE IV SCH; -NS IV 1000 ML (CANCER CTR) IV SCH; -PACLITAXEL IV SCH; -PALONOSETRON HCL 0.25 MG, DEXAMETHASONE INJECTION 10 MG in NS (IVPB) CANCER CENTER 50 ML IV SCH; -PEGFILGRASTIM 6 MG/0.6ML NEULASTA SC SCH; -diphenhydrAMINE 25 MG TAB (BENADRYL) CANCER CENTER PO SCH
== END 2018-07-10 | disposition home or self-care (01) ==
LOC: ONC 09:51
PROVIDERS: ATTEND Internal Medicine Hematology & Oncology
DX: C54.1 Malignant neoplasm of endometrium (principal); C77.5 Secondary and unspecified malignant neoplasm of intrapelvic lymph nodes; I10 Essential (primary) hypertension; I27.82 Chronic pulmonary embolism; E66.01 Morbid (severe) obesity due to excess calories; Z68.42 Body mass index [BMI] 45.0-49.9, adult; Z79.01 Long term (current) use of anticoagulants; Z79.899 Other long term (current) drug therapy; Z90.710 Acquired absence of both cervix and uterus
CPT/HCPCS: 36415; 36591; 80048; 85025; 99213

== ENCOUNTER → 2018-08-24 | Outpatient (CLI) | payer MEDICARE, OTHER ==
[~2018-08-24] MED LIST changes: -RIVA20TA PO; +RIVA20TA2 PO
== END ==
LOC: RT 15:09
PROVIDERS: ATTEND Internal Medicine
DX: R06.2 Wheezing (principal)
CPT/HCPCS: 94060; 94726; 94729

== ENCOUNTER 2018-10-31 12:48 | Outpatient (RCR) | payer MEDICARE, OTHER ==
[2018-10-10 10:56] LABS: BASOPHILS # (AUTO) 0.1 10^3/uL (0.0-0.1); BASOPHILS % (AUTO) 1 % (0-10); EOSINOPHILS # (AUTO) 0.3 10^3/uL (0.0-0.3); EOSINOPHILS % (AUTO) 5 % (0-10); HEMATOCRIT 42 % (35-52); HEMOGLOBIN 13.7 G/DL (11.5-16.0); LYMPHOCYTES # (AUTO) 1.1 X 10^3 (1.0-4.0); LYMPHOCYTES % (AUTO) 19 % (12-44); MEAN CORPUSCULAR HEMOGLOBIN 31 PG (25-34); MEAN CORPUSCULAR HGB CONC 32 G/DL (32-36); MEAN CORPUSCULAR VOLUME 94 FL (80-99); MEAN PLATELET VOLUME 10.2 FL (7.4-10.4); MONOCYTES # (AUTO) 0.6 X 10^3 (0.0-1.0); MONOCYTES % (AUTO) 10 % (0-12); NEUTROPHILS # (AUTO) 3.8 X 10^3 (1.8-7.8); NEUTROPHILS % (AUTO) 65 % (42-75); PLATELET COUNT 214 10^3/uL (130-400); RED CELL DISTRIBUTION WIDTH 14.9 % (10.0-14.5); WHITE BLOOD COUNT 5.8 10^3/uL (4.3-11.0)
[2018-10-10 11:14] LABS: ALBUMIN 4.1 GM/DL (3.2-4.5); BILIRUBIN,TOTAL 0.4 MG/DL (0.1-1.0); CALCIUM 9.7 MG/DL (8.5-10.1); CREATININE SERUM 0.96 MG/DL (0.60-1.30); MAGNESIUM 1.8 MG/DL (1.8-2.4); POTASSIUM 3.9 MMOL/L (3.6-5.0); TOTAL PROTEIN 6.8 GM/DL (6.4-8.2)
== END 2019-01-08 | disposition home or self-care (01) ==
LOC: ONC 12:48
PROVIDERS: ATTEND Internal Medicine Hematology & Oncology
DX: C54.1 Malignant neoplasm of endometrium (principal); C77.5 Secondary and unspecified malignant neoplasm of intrapelvic lymph nodes; I10 Essential (primary) hypertension; I27.82 Chronic pulmonary embolism; E66.01 Morbid (severe) obesity due to excess calories; Z68.42 Body mass index [BMI] 45.0-49.9, adult; Z79.01 Long term (current) use of anticoagulants; Z79.899 Other long term (current) drug therapy; Z90.710 Acquired absence of both cervix and uterus
CPT/HCPCS: 36591; 80053; 83735; 85025; 99213

== ENCOUNTER 2019-04-11 14:38 | Outpatient (RCR) | payer MEDICARE, OTHER ==
[~2019-04-11 14:38] MED LIST changes: -ACET325C5 PO; +ACET325C7 PO; -CETI10TA20 PO; +CETI10TA21 PO; +LISI1TAB29 PO; -LISI1TAB6 PO; -ONDA8TAB12 PO; +ONDA8TAB15 PO
[2019-04-11 14:55] LABS: BASOPHILS # (AUTO) 0.1 10^3/uL (0.0-0.1); BASOPHILS % (AUTO) 1 % (0-10); EOSINOPHILS # (AUTO) 0.3 10^3/uL (0.0-0.3); EOSINOPHILS % (AUTO) 3 % (0-10); HEMATOCRIT 45 % (35-52); HEMOGLOBIN 14.6 G/DL (11.5-16.0); LYMPHOCYTES # (AUTO) 1.6 X 10^3 (1.0-4.0); LYMPHOCYTES % (AUTO) 18 % (12-44); MEAN CORPUSCULAR HEMOGLOBIN 30 PG (25-34); MEAN CORPUSCULAR HGB CONC 33 G/DL (32-36); MEAN CORPUSCULAR VOLUME 93 FL (80-99); MEAN PLATELET VOLUME 10.7 FL (7.4-10.4); MONOCYTES # (AUTO) 0.5 X 10^3 (0.0-1.0); MONOCYTES % (AUTO) 6 % (0-12); NEUTROPHILS # (AUTO) 6.4 X 10^3 (1.8-7.8); NEUTROPHILS % (AUTO) 73 % (42-75); PLATELET COUNT 245 10^3/uL (130-400); RED CELL DISTRIBUTION WIDTH 15.2 % (10.0-14.5); WHITE BLOOD COUNT 8.8 10^3/uL (4.3-11.0)
[2019-04-11 15:15] LABS: ALBUMIN 4.2 GM/DL (3.2-4.5); BILIRUBIN,TOTAL 0.5 MG/DL (0.1-1.0); CALCIUM 9.8 MG/DL (8.5-10.1); CREATININE SERUM 1.02 MG/DL (0.60-1.30); POTASSIUM 3.9 MMOL/L (3.6-5.0); TOTAL PROTEIN 7.3 GM/DL (6.4-8.2)
[2019-04-24] MEDS ORDERED: TRM50T PO ×2 (18:45→18:46)
[2019-04-24] MEDS ORDERED: CYCL10TA9 PO (18:46)
== END 2019-07-10 | disposition home or self-care (01) ==
LOC: ONC 14:38
PROVIDERS: ATTEND Internal Medicine Hematology & Oncology
DX: C54.1 Malignant neoplasm of endometrium (principal); C77.5 Secondary and unspecified malignant neoplasm of intrapelvic lymph nodes; I10 Essential (primary) hypertension; I27.82 Chronic pulmonary embolism; E66.01 Morbid (severe) obesity due to excess calories; Z68.42 Body mass index [BMI] 45.0-49.9, adult; Z79.01 Long term (current) use of anticoagulants; Z79.899 Other long term (current) drug therapy; Z90.710 Acquired absence of both cervix and uterus
CPT/HCPCS: 36591; 80053; 85025

== ENCOUNTER 2019-04-24 16:26 | Emergency (ER) | payer MEDICARE, OTHER ==
[~2019-04-24] VITALS: Ht 162 cm; Wt 77.0 kg
[~2019-04-24 16:26] MED LIST changes: +CETI10TA20 PO; -CETI10TA21 PO; +ONDA8TAB12 PO; -ONDA8TAB15 PO
[2019-04-24 16:35] VITALS: BP 110/73
[2019-04-24] MEDS ORDERED: KETOROLAC 30 MG/ML VIAL IM STA (17:33)
--- NOTE | 2019-04-24 17:47 | ED Back Pain ---
General Chief Complaint: Back Problems Stated Complaint: LEFT LEG PAIN Nursing Triage Note: COMPLAINS OF LOWER BACK PAIN THAT IS GOING DOWN HER LEGS. HAD A MRI 2 WEEKS AGO AT [facility] STATES. NECK SURGERY ON Jan. STATES SHE TOOK A ULTRAM AND MUSCLE RELAXER BEFORE COMING TO THE ER. Nursing Sepsis Screen: No Definite Risk Source of Information: Patient Exam Limitations: No Limitations (ZABRINA QUICK MD) History of Present Illness Date Seen by Provider: Apr 24, 2019 Time Seen by Provider: 17:26 Initial Comments Here with acute onset of low back pain that is centered in the low lumbar spine area. Onset yesterday when she was standing up. She felt suddenly started hurting radiated down. Denies bowel or bladder incontinence. Denies fever or chills. Denies any recent injury. She did have an Ultram that she had left over after surgery and that did help follow-up that when she took it this afternoon. Location: Lumbar Spine Timing/Duration: 24 Hours Severity: Moderate Pain/Injury Location: Back Radiation: Buttocks, Upper Legs Method of Injury: Unknown Modifying Factors: Improves With Immobilization; Worse With Movement; Improves With Pain Medication Associated Symptoms: muscle spasms; No fever, No weakness, No numbness in legs/feet, No tingling in legs/feet, No sensory/motor loss; lower back pain; No loss of bladder control, No loss of bowel control (ZABRINA QUICK MD) Allergies and Home Medications Allergies Coded Allergies: Sulfa (Sulfonamide Antibiotics) (Verified Allergy, Mild, N/V, 08/24/17) codeine (Verified Allergy, Mild, N/V, 08/24/17) metronidazole (Verified Allergy, Mild, GI UPSET, 08/24/17) penicillin G (Verified Allergy, Mild, RASH, 08/24/17) Home Medications Alprazolam 0.25 Mg Tablet, 0.25 MG PO Q8H PRN for ANXIETY, (Reported) Amlodipine Besylate 10 Mg Tablet, 10 MG PO DAILY, (Reported) Apixaban 5 Mg Tablet, 5 MG PO BID FINISH CURRENTLY SUPPLY OF ELIQUIS, ONCE GONE SWITCH TO XARELTO 20MG DAILY. Prescribed by: JODY BARAJAS on 09/29/17 6445 Cetirizine HCl 10 Mg Tablet, 10 MG PO DAILY, (Reported) Cyclobenzaprine HCl 10 Mg Tablet, 10 MG PO DAILY PRN for MUSCLE SPASMS, (Reported) Dexamethasone 4 Mg Tablet, 20 MG PO UD, (Reported) TAKES 5 (4MG) TABLETS THE NIGHT BEFORE AND MORNING OF CHEMO Docusate Sodium 100 Mg Capsule, 200 MG PO HS, (Reported) Gabapentin 300 Mg Capsule, 300 MG PO BID, (Reported) Levofloxacin 500 Mg Tablet, 500 MG PO DAILY Prescribed by: JODY BARAJAS on 09/29/17 1159 Lisinopril/Hydrochlorothiazide 1 Each Tablet, 1 TAB PO DAILY, (Reported) Ondansetron HCl 8 Mg Tablet, 8 MG PO TID PRN for NAUSEA/VOMITING-1ST LINE, (Reported) Polyethylene Glycol 3350 17 Gm Powd.pack, 17 GM PO DAILY PRN for CONSTIPATION- 2ND LINE, (Reported) Rivaroxaban 20 Mg Tablet, 20 MG PO DAILY Prescribed by: JODY BARAJAS on 09/29/17 1159 Tramadol HCl 50 Mg Tablet, 50 MG PO Q6H PRN for PAIN-MILD TO MODERATE Prescribed by: JODY BARAJAS on 09/29/17 1159 Patient Home Medication List Home Medication List Reviewed: Yes (ZABRINA QUICK MD) Review of Systems Constitutional: see HPI Respiratory: no symptoms reported Cardiovascular: no symptoms reported Gastrointestinal: no symptoms reported Genitourinary: no symptoms reported Musculoskeletal: see HPI Skin: no symptoms reported Psychiatric/Neurological: See HPI (ZABRINA QUICK MD) Past [id number] Hx Past Med/Social Hx: Reviewed Nursing Past Med/Soc Hx (ZABRINA QUICK MD) Patient Social History Alcohol Use: Denies Use Recreational Drug Use: No Smoking Status: Never a Smoker 2nd Hand Smoke Exposure: No Recent Foreign Travel: No Contact w/Someone Who Travel: No Recent Infectious Disease Expo: No Recent Hopitalizations: No (ZABRINA QUICK MD) Immunizations Up To Date Date of Pneumonia Vaccine: Jan 25, 2016 Date of Influenza Vaccine: Jan 23, 2017 (ZABRINA QUICK MD) Seasonal Allergies Seasonal Allergies: Yes (ZABRINA QUICK MD) Past Medical History Surgeries: Yes (L TKR, BACK, VERICOSE VEIN STRIPPING LEFT LEG, MECL) Appendectomy, Gallbladder, Hysterectomy, Tonsillectomy Respiratory: Yes Chronic Bronchitis, Pulmonary Embolism Currently Using CPAP: No Currently Using BIPAP: No Cardiac: Yes Deep Vein Thrombosis, Hypertension Neurological: Yes Headaches /Migraines 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) Genitourinary: No Gastrointestinal: Yes Chronic Constipation, Diverticulosis Musculoskeletal: Yes Degenerate Disk Disease, Osteoporosis, Arthritis, Chronic Back Pain Endocrine: No HEENT: No Loss of Vision: Bilateral Hearing Impairment: Denies Cancer: Yes (ENDOMETRIAL, BASAL CELL NOSE) Skin Did You Recieve Any Treatments: Yes What Type of Treatment Did You: Chemotherapy, Radiation, Surgical Intervention Psychosocial: Yes Anxiety Integumentary: No Blood Disorders: No Adverse Reaction/Blood Tranf: No (N/A) (ZABRINA QUICK MD) Family Medical History Reviewed Nursing Family Hx (ZABRINA QUICK MD) Cancer, Diabetes, Hypertension (ZABRINA QUICK MD) Physical Exam Vital Signs Vital Signs - First Documented 04/24/19 16:35 Temp 36.9 Pulse 96 Resp 16 B/P (MAP) 110/73 (85) Pulse Ox 98 O2 Delivery Room Air (NO PALAFOX) Vital Signs Capillary Refill : Less Than 3 Seconds (ZABRINA QUICK MD) Height, Weight, BMI Height: 5'6.00" Weight: 198lbs. 0.0oz. [id number]; 29.00 BMI Method:Stated General Appearance: No Apparent Distress, WD/WN Cardiovascular: Regular Rate, Rhythm, No Murmur Respiratory: Lungs Clear, Normal Breath Sounds Gastrointestinal: Non Tender, Soft Back: No CVA Tenderness (L), No CVA Tenderness (R); Decreased Range of Motion, Muscle Spasm (paraspinous lumbar area bilateral), Vertebral Tenderness (low lumbar spine) Extremity: Normal Inspection, Normal Range of Motion, Non Tender Neurologic/Psychiatric: Alert, Oriented x3, No Motor/Sensory Deficits Skin: Normal Color, Warm/Dry (ZABRINA QUICK MD) Progress/Results/Core Measures Results/Orders Vital Signs/I&O 04/24/19 16:35 Temp 36.9 Pulse 96 Resp 16 B/P (MAP) 110/73 (85) Pulse Ox 98 O2 Delivery Room Air (FITO PALAFOXUS J) Blood Pressure Mean: 85 Progress Progress Note : Progress Note Seen and evaluated. We will give 1 dose of Toradol [address] IM [address] get [address] of the jared mbar spine given her history. She does report history of fracture in her tailbone that was noted on CT last month. She describes that as being beside the tailbone and nondisplaced and only very minimal fracture. Monitor patient. 1812: Care transferred to Dr. Palafox pending CT scan. She is actually feeling better and was able to stand of her own accord. (ZABRINA QUICK MD) Progress Note : Time: 18:42 Progress Note Assumed care of the patient at shift change. I agree with the above-stated physical exam and history. Patient is feeling some improvement from the Toradol. NSAIDs are not a good long-term plan for her given her history of Eliquis usage. GERD has Dr. Barragan and Dr. Barajas for primary care and general orthopedic surgery. We'll encourage her to follow up with them to seek more physical therapy if necessary. Tonight she would like a shot of Norflex and will provide her with a extra week of tramadol and cyclobenzaprine. She really knows some exercises from her last bout and physical therapy which helped her low back and we have encouraged her to obtain a back brace. (NO PALAFOX) Departure Impression Primary Impression: Lumbago with sciatica Qualified Codes: M54.42 - Lumbago with sciatica, left side; M54.41 - Lumbago with sciatica, right side Additional Impression: Spinal stenosis at L4-L5 level Disposition: 01 HOME, SELF-CARE Condition: Stable Departure-Patient Inst. Decision time for Depature: 18:43 (NO PALAFOX) Referrals: JODY BARAJAS DO (PCP/Family) Primary Care Physician Patient Instructions: Spinal Stenosis, Sciatica (DC), Back Flexion Stretching Exercises, Spinal Stenosis Strengthening Exercises Add. Discharge Instructions: Start with topical creams such as icy hot, Aspercreme, Biofreeze etc. Heating pads alternated with ice for the first couple days. Wear a back brace on the days that it helps. Tylenol 1000 mg every 8 hours as needed for pain. Tramadol as prescribed one tablet every 6 hours. Cyclobenzaprine 1 tablet every 8 hours as necessary for muscle spasms. Tramadol and cyclobenzaprine will cause drowsiness. Follow-up with your primary care doctor or your orthopedic surgeon to reestablish physical therapy. All discharge instructions reviewed with patient and/or family. Voiced understanding. Scripts Cyclobenzaprine HCl (Cyclobenzaprine HCl) 10 Mg Tablet 10 MG PO Q8H PRN for SPASMS, #20 TAB 0 Refills Prov: NO PALAFOX 04/24/19 Tramadol HCl (Tramadol HCl) 50 Mg Tablet 50 MG PO Q6H PRN for PAIN-BREAKTHROUGH, #20 TAB 0 Refills Prov: NO PALAFOX 04/24/19 ZABRINA QUICK MD Apr 24, 2019 17:47 NO PALAFOX Apr 24, 2019 18:47
--- NOTE | 2019-04-24 18:30 | Diagnostic Imaging Report ---
PROCEDURE: CT lumbar spine without contrast. TECHNIQUE: Multiple contiguous axial images were obtained through the lumbar spine without the use of intravenous contrast. Sagittal and coronal reformations were then performed. Auto Exposure Controls were utilized during the CT exam to meet ALARA standards for radiation dose reduction. INDICATION: Low back pain. COMPARISON: CT abdomen and pelvis 09/28/2017. FINDINGS: There are 5 lumbar-type vertebral bodies. Grade 1 anterolisthesis of L4 and L5. Vertebral body heights preserved. No fractures. Mild degenerative endplate changes and facet arthropathy are more moderate at L4-L5. There is also moderate facet arthropathy at L5-S1. Anterolisthesis and spondylotic changes result in moderate spinal canal narrowing at L4-L5. There is also moderate neural foraminal narrowing on the right at this level. No other substantial spinal canal or neural foraminal narrowing is identified on this non-myelographic CT. Visualized pelvis is intact. IMPRESSION: 1. Spondylotic changes at L4-L5 resulting in grade 1 anterolisthesis and probable moderate spinal canal narrowing. 2. Facet arthropathy results in mild to moderate neural foraminal narrowing, greatest on the right at L4-L5. 3. No acute osseous findings Dictated by: Dictated on workstation # [id number]
--- NOTE | 2019-04-24 18:38 | NUR ---
DR RICKS IN TALKING TO PT. PT STATES MED HAS HELPED.
[2019-04-24] MEDS ORDERED: TRM50T PO ×2 (18:45→18:46)
[2019-04-24] MEDS ORDERED: CYCL10TA9 PO (18:46)
[2019-04-24] MEDS ORDERED: ORPHENADRINE 60 MG/2 ML (NORFLEX) AMP ONE (18:53)
[2019-04-24] MEDS ORDERED: ORPHENADRINE 60 MG/2 ML (NORFLEX) AMP IM ONE (19:00)
== END 2019-04-24 19:11 | disposition home or self-care (01) ==
LOC: EDUNIT# 16:26 → ER 16:29
DX: M54.42 Lumbago with sciatica, left side (principal); M48.061 Spinal stenosis, lumbar region without neurogenic claudication; I10 Essential (primary) hypertension; G43.909 Migraine, unspecified, not intractable, without status migrainosus; F41.9 Anxiety disorder, unspecified; Z85.42 Personal history of malignant neoplasm of other parts of uterus; Z85.828 Personal history of other malignant neoplasm of skin; Z88.2 Allergy status to sulfonamides; Z88.5 Allergy status to narcotic agent; Z88.0 Allergy status to penicillin; Z88.8 Allergy status to other drugs, medicaments and biological substances; Z79.01 Long term (current) use of anticoagulants; Z90.49 Acquired absence of other specified parts of digestive tract; Z90.710 Acquired absence of both cervix and uterus; Z90.89 Acquired absence of other organs; Z86.711 Personal history of pulmonary embolism; Z86.718 Personal history of other venous thrombosis and embolism; Z82.49 Family history of ischemic heart disease and other diseases of the circulatory system; Z96.652 Presence of left artificial knee joint
CPT/HCPCS: 72131; 96372

== ENCOUNTER 2019-06-13 17:11 | Emergency (ER) | payer MEDICARE, OTHER ==
[~2019-06-13] VITALS: Ht 165 cm; Wt 86.0 kg
[~2019-06-13 17:11] MED LIST changes: -CETI10TA20 PO; +CETI10TA21 PO; -ONDA8TAB12 PO; +ONDA8TAB15 PO; +TRM50T PO
--- NOTE | 2019-06-13 18:17 | ED Lower Extremity ---
General Chief Complaint: Lower Extremity Stated Complaint: LEFT LEG PAIN/ POST SURGERY Nursing Triage Note: PT STATES SHE HAD BACK SURGERY AT [facility] LAST MONDAY AND RELEASED ON MONDAY. CC TODAY OF PAIN AND WARMTH IN THE LT LOWER LEG ALONG WITH LT UPPER LEG PAIN. Nursing Sepsis Screen: No Definite Risk Source: patient History of Present Illness Date Seen by Provider: Jun 13, 2019 Time Seen by Provider: 17:58 Initial Comments PT ARRIVES VIA POV FROM HOME PT HAD LUMBAR SPINE SURGERY 06/06/[address] GONZALEZ AT [address]--HAS HARDWARE IN PLACE PT HAS HISTORY OF MULTIPLE DVT'S, WELL P.E. IN PAST, STARTING IN 2001 POST -OP AFTER VEIN STRIPPING TO LEFT LEG. HAD ANOTHER ONE IN 2014 WHEN SHE HAD PNEUMONIA--HAS BEEN ON BLOOD THINNERS CONTINUOUSLY SINCE 2014 PT WAS ON ELIQUIS, AND IS NOW ON XARELTO 20 MG / DAY--NO COUMADIN WITH FIRST ONE. PT STOPPED XARELTO FOR 5 DAYS BEFORE SURGERY, AND FOR 5 DAYS AFTER SURGERY. RESTARTED IT YESTERDAY TODAY-THIS MORNING, SHE NOTICED A RED, WARM, TENDER AREA TO LEFT LOWER LEG, JUST MEDIAL AND DISTAL TO POPLITEAL SPACE. STATES HER WHOLE LEFT LEG IS A LITTLE SWOLLEN DID HAVE SOME NUMBNESS AND TINGLING TO LEFT LEG, BUT THAT HAS RESOLVED A COUPLE OF DAYS AGO. CONTINUES TO HAVE POST OP PAIN, AND PAIN TO LEFT LATERAL THIGH AREA. NO PAIN OR REDNESS OR WARMTH TO LEFT MEDIAL THIGH NO FEVER NO CHEST PAIN NO SHORTNESS OF BREATH NO PALPITATIONS NO DIZZINESS NO SYNCOPE PT REQUESTING RACHEL ACUÑA ON ARRIVAL PCP: DR. BARAJAS ORTHOPEDIC SURGEON: DR. GONZALEZ Allergies and Home Medications Allergies Coded Allergies: Sulfa (Sulfonamide Antibiotics) (Verified Allergy, Mild, N/V, 08/24/17) codeine (Verified Allergy, Mild, N/V, 08/24/17) metronidazole (Verified Allergy, Mild, GI UPSET, 08/24/17) penicillin G (Verified Allergy, Mild, RASH, 08/24/17) Home Medications Alprazolam 0.25 Mg Tablet, 0.25 MG PO Q8H PRN for ANXIETY, (Reported) Amlodipine Besylate 10 Mg Tablet, 10 MG PO DAILY, (Reported) Apixaban 5 Mg Tablet, 5 MG PO BID FINISH CURRENTLY SUPPLY OF ELIQUIS, ONCE GONE SWITCH TO XARELTO 20MG DAILY. Prescribed by: JODY BARAJAS on 09/29/17 1225 Cetirizine HCl 10 Mg Tablet, 10 MG PO DAILY, (Reported) Cyclobenzaprine HCl 10 Mg Tablet, 10 MG PO DAILY PRN for MUSCLE SPASMS, (Rep orted) Cyclobenzaprine HCl 10 Mg Tablet, 10 MG PO Q8H PRN for SPASMS Prescribed by: NO RICKS on 04/24/19 184 Dexamethasone 4 Mg Tablet, 20 MG PO UD, (Reported) TAKES 5 (4MG) TABLETS THE NIGHT BEFORE AND MORNING OF CHEMO Docusate Sodium 100 Mg Capsule, 200 MG PO HS, (Reported) Gabapentin 300 Mg Capsule, 300 MG PO BID, (Reported) Levofloxacin 500 Mg Tablet, 500 MG PO DAILY Prescribed by: JODY BARAJAS on 09/29/17 1159 Lisinopril/Hydrochlorothiazide 1 Each Tablet, 1 TAB PO DAILY, (Reported) Ondansetron HCl 8 Mg Tablet, 8 MG PO TID PRN for NAUSEA/VOMITING-1ST LINE, (Reported) Polyethylene Glycol 3350 17 Gm Powd.pack, 17 GM PO DAILY PRN for CONSTIPATION- 2ND LINE, (Reported) Rivaroxaban 20 Mg Tablet, 20 MG PO DAILY Prescribed by: JODY BARAJAS on 09/29/17 1159 Tramadol HCl 50 Mg Tablet, 50 MG PO Q6H PRN for PAIN-MILD TO MODERATE Prescribed by: JODY BARAJAS on 09/29/17 1159 Tramadol HCl 50 Mg Tablet, 50 MG PO Q6H PRN for PAIN-BREAKTHROUGH Prescribed by: NO RICKS on 04/24/19 184 Patient Home Medication List Home Medication List Reviewed: Yes Review of Systems Constitutional: no symptoms reported; No dizziness, No fever Respiratory: no symptoms reported; No short of breath Cardiovascular: No chest pain, No palpitations, No syncope Gastrointestinal: no symptoms reported Genitourinary: no symptoms reported Musculoskeletal: see HPI Skin: see HPI Psychiatric/Neurological: See HPI Past Hfvyypb-Elaxyq-Dpddkz Hx Past Med/Social Hx: Reviewed and Corrections made Patient Social History Alcohol Use: Denies Use Recreational Drug Use: No Smoking Status: Never a Smoker 2nd Hand Smoke Exposure: No Recent Foreign Travel: No Contact w/Someone Who Travel: No Recent Infectious Disease Expo: No Recent Hopitalizations: Yes (06/08/19 FOR BACK) Immunizations Up To Date Date of Pneumonia Vaccine: Jan 25, 2016 Date of Influenza Vaccine: Jan 23, 2017 Seasonal Allergies Seasonal Allergies: Yes Past Medical History Surgeries: Yes (L TKR, BACK, VARICOSE VEIN STRIPPING LEFT LEG, MECL, BACK-LUMBAR ) Appendectomy, Gallbladder, Hysterectomy, Joint Replacement, Orthopedic, Tonsillectomy, Vascular Surgery Respiratory: Yes Pneumonia, Chronic Bronchitis, Pulmonary Embolism Currently Using CPAP: No Currently Using BIPAP: No Cardiac: Yes Deep Vein Thrombosis, Hypertension Neurological: Yes Headaches /Migraines 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) 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, 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 Genitourinary: No Gastrointestinal: Yes Chronic Constipation, Diverticulosis Musculoskeletal: Yes Degenerate Disk Disease, Osteoporosis, Arthritis, Chronic Back Pain Endocrine: No HEENT: No Loss of Vision: Bilateral Hearing Impairment: Denies Cancer: Yes (ENDOMETRIAL, BASAL CELL NOSE) Skin Did You Recieve Any Treatments: Yes What Type of Treatment Did You: Chemotherapy, Radiation, Surgical Intervention Psychosocial: Yes Anxiety Integumentary: No Blood Disorders: Yes (DVT'S AND P.E.'S ) Adverse Reaction/Blood Tranf: No (N/A) Family Medical History Cancer, Diabetes, Hypertension Physical Exam Vital Signs Vital Signs - First Documented 06/13/19 17:37 Temp 36.8 Pulse 95 Resp 20 B/P (MAP) 118/70 (86) Pulse Ox 97 O2 Delivery Room Air Capillary Refill : Less Than 3 Seconds Height, Weight, BMI Height: 5'6.00" Weight: 198lbs. 0.0oz. 89.634702ag; 31.00 BMI Method:Stated General Appearance: WD/WN, no apparent distress Cardiovascular: normal peripheral pulses, regular rate, rhythm, no murmur Respiratory: normal breath sounds, no respiratory distress, no accessory muscle use Back: other (SURGICAL WOUNDS TO LOWER BACK, AND BILATERAL ILIAC AREAS WITH DRESSINGS IN PLACE--CLEAN, DRY, INTACT. NO EVIDENCE OF INFECTION AT THIS TIME. ) Legs: left leg other (MEDIAL ASPECT OF LEFT PROXIMAL CALF WITH APPROXIMATELY 2 X 8 CM AREA OF ERYTHEMA, TENDERNESS AND CORDING. 1+ SWELLING TO ENTIRE LEFT LEG. DISTAL MOTOR/SENSORY/VASCULAR INTACT. 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, no motor/sensory deficits, alert, normal mood/affect, oriented x 3 Skin: normal color, warm/dry, other ( ABOVE) Progress/Results/Core Measures Results/Orders Lab Results Laboratory Tests Test 06/13/19 18:18 Range/Units White Blood Count 9.1 4.3-11.0 10^3/uL Red Blood Count 4.48 4.35-5.85 10^6/uL Hemoglobin 13.4 11.5-16.0 G/DL Hematocrit 41 35-52 % Mean Corpuscular Volume 92 80-99 FL Mean Corpuscular Hemoglobin 30 25-34 PG Mean Corpuscular Hemoglobin Concent 32 32-36 G/DL Red Cell Distribution Width 14.9 H 10.0-14.5 % Platelet Count 258 130-400 10^3/uL Mean Platelet Volume 10.2 7.4-10.4 FL Neutrophils (%) (Auto) 73 42-75 % Lymphocytes (%) (Auto) 13 12-44 % Monocytes (%) (Auto) 9 0-12 % Eosinophils (%) (Auto) 5 0-10 % Basophils (%) (Auto) 0 0-10 % Neutrophils # (Auto) 6.6 1.8-7.8 X 10^3 Lymphocytes # (Auto) 1.2 1.0-4.0 X 10^3 Monocytes # (Auto) 0.8 0.0-1.0 X 10^3 Eosinophils # (Auto) 0.4 H 0.0-0.3 10^3/uL Basophils # (Auto) 0.0 0.0-0.1 10^3/uL Erythrocyte Sedimentation Rate 69 H 0-30 MM/HR Prothrombin Time 21.2 H 12.2-14.7 SEC INR Comment 1.8 H 0.8-1.4 Activated Partial Thromboplast Time 88 H 24-35 SEC Sodium Level 138 135-145 MMOL/L Potassium Level 3.4 L 3.6-5.0 MMOL/L Chloride Level 98 98-107 MMOL/L Carbon Dioxide Level 25 21-32 MMOL/L Anion Gap 15 H 5-14 MMOL/L Blood Urea Nitrogen 15 7-18 MG/DL Creatinine 1.06 0.60-1.30 MG/DL Estimat Glomerular Filtration Rate 51 BUN/Creatinine Ratio 14 Glucose Level 108 H 70-105 MG/DL Calcium Level 9.8 8.5-10.1 MG/DL Corrected Calcium 9.9 8.5-10.1 MG/DL Total Bilirubin 0.5 0.1-1.0 MG/DL Aspartate Amino Transf (AST/SGOT) 123 H 5-34 U/L Alanine Aminotransferase (ALT/SGPT) 144 H 0-55 U/L Alkaline Phosphatase 140 H 40-136 U/L Total Protein 7.0 6.4-8.2 GM/DL Albumin 3.9 3.2-4.5 GM/DL My Orders Orders - JURGEN CHAVIRA DO Cbc With Automated Diff (06/13/19 18:09) Comprehensive Metabolic Panel (06/13/19 18:09) Erythrocyte Sedimentation Rate (06/13/19 18:09) Protime With Inr (06/13/19 18:09) Partial Thromboplastin Time (06/13/19 18:09) Rachel Hose (06/13/19 18:37) Vital Signs/I&O 06/13/19 17:37 Temp 36.8 Pulse 95 Resp 20 B/P (MAP) 118/70 (86) Pulse Ox 97 O2 Delivery Room Air Blood Pressure Mean: 86 Progress Progress Note : Progress Note NO ULTRASOUND SERVICES AVAILABLE AT THIS TIME. WILL WRITE OUTPATIENT ORDER TO HAVE THIS DONE ON REVIEWING LAB, AND ELEVATED LIVER ENZYMES, AND LIKELY SOURCE IS THE ACETOMINOPHEN IN HER PAIN MEDICATIONS--PT IS IN AGREEMENT, AND REPORTS THAT THIS HAS BEEN AN ISSUE WHEN SHE HAS HAD TO TAKE PAIN MEDICATIONS IN THE PAST. SHE WILL DISCUSS WITH DR. GONZALEZ AND DR. BARAJAS AT HER NEXT APPOINTMENTS. Departure Communication (Admissions) 1810--ATTEMPTED TO CONTACT DR. BARAJAS, NO ANSWER. Impression Primary Impression: Postoperative superficial thrombophlebitis of left lower extremity Additional Impressions: S/P LUMBAR SPINE SURGERY Hx of deep venous thrombosis Elevated liver enzymes Disposition: 01 HOME, SELF-CARE Condition: Stable Departure-Patient Inst. Referrals: JODY BARAJAS DO (PCP/Family) Primary Care Physician Patient Instructions: Liver Function Test, Superficial Phlebitis, How to Put On and Take Off Compression Stockings, Phlebitis (DC) Add. Discharge Instructions: WEAR RACHEL HOSE FOR SWELLING MOIST HEAT TO AFFECTED AREA AT 20 MINUTE INTERVALS ELEVATE LEG MUCH POSSIBLE CONTINUE YOUR MEDICATIONS PRESCRIBED, EXCEPT TAKE AN ADDITIONAL XARELTO TONIGHT AND TOMORROW. LIMIT YOUR ACETOMINOPHEN ( TYLENOL) INTAKE CALL IN AM TO SCHEDULE OUTPATIENT ULTRASOUND FOLLOW UP WITH DR. BARAJAS TOMORROW OR MONDAY FOR FURTHER CARE KEEP YOUR APPOINTMENT NEXT WEEK WITH DR GONZALEZ RETURN TO ER IF SYMPTOMS WORSEN All discharge instructions reviewed with patient and/or family. Voiced understanding. JURGEN CHAVIRA DO Jun 13, 2019 18:17
--- NOTE | 2019-06-13 18:27 | NUR ---
OUTPATIENT ORDER FAXED TO SCHEDULING,GIVEN TO REGISTRATION , ONE PLACED ON CHART,ORGINAL GIVEN TO PATIENT.
[2019-06-13 18:28] LABS: BASOPHILS % (AUTO) 0 % (0-10); EOSINOPHILS # (AUTO) 0.4 10^3/uL (0.0-0.3); EOSINOPHILS % (AUTO) 5 % (0-10); HEMATOCRIT 41 % (35-52); HEMOGLOBIN 13.4 G/DL (11.5-16.0); LYMPHOCYTES # (AUTO) 1.2 X 10^3 (1.0-4.0); LYMPHOCYTES % (AUTO) 13 % (12-44); MEAN CORPUSCULAR HEMOGLOBIN 30 PG (25-34); MEAN CORPUSCULAR HGB CONC 32 G/DL (32-36); MEAN CORPUSCULAR VOLUME 92 FL (80-99); MEAN PLATELET VOLUME 10.2 FL (7.4-10.4); MONOCYTES # (AUTO) 0.8 X 10^3 (0.0-1.0); MONOCYTES % (AUTO) 9 % (0-12); NEUTROPHILS # (AUTO) 6.6 X 10^3 (1.8-7.8); NEUTROPHILS % (AUTO) 73 % (42-75); PLATELET COUNT 258 10^3/uL (130-400); RED CELL DISTRIBUTION WIDTH 14.9 % (10.0-14.5); WHITE BLOOD COUNT 9.1 10^3/uL (4.3-11.0)
[2019-06-13 18:40] LABS: INR 1.8 (0.8-1.4); PROTHROMBIN TIME PATIENT 21.2 SEC (12.2-14.7)
[2019-06-13 18:45] LABS: ALBUMIN 3.9 GM/DL (3.2-4.5); BILIRUBIN,TOTAL 0.5 MG/DL (0.1-1.0); CALCIUM 9.8 MG/DL (8.5-10.1); CREATININE SERUM 1.06 MG/DL (0.60-1.30); POTASSIUM 3.4 MMOL/L (3.6-5.0)
[2019-06-13 18:52] LABS: ERYTHROCYTE SEDIMENTATION RATE 69 MM/HR (0-30)
--- NOTE | 2019-06-13 19:00 | NUR ---
RACHEL ACUÑA PLACED ON PATIENT BY PATIENT.
[2019-06-13 19:04] VITALS: BP 118/70
--- OUTSIDE RECORDS SUMMARY | 2019-06-17 23:08 | XMS REPORT | Continuity of Care Document ---
Demographics x Preferred Language Unknown Marital Status Unknown Taoist Affiliation Unknown Race Unknown Ethnic Group Unknown Author Organization Unknown Address Unknown Phone Unavailable Allergies Active Description Code Type Severity Reaction Onset Reported/Identified Relationship to Patient Clinical Status Yes codeine [id number] Drug Allergy Mild N/V 08/24/2017 Yes metronidazole [id number] Joni g Allergy Mild GI UPSET 08/24/2017 Yes penicillin G [id number] Drug Allergy Mild RASH 08/24/2017 Yes Sulfa (Sulfonamide Antibiotics) [id number] Drug Allergy Mild N/V 8 Medications There is no data. 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 TIM CALLE MD, Ot E66.01 MORBID (SEVERE) OBESITY DUE TO EXCESS CA TIM CALLE MD Ot I10 ESSENTIAL (PRIMARY) HYPERTENSION TIM CALLE MD Ot I27.82 CHRONIC PULMONARY EMBOLISM TIM CALLE MD Ot Z51.11 ENCOUNTER FOR ANTINEOPLASTIC CHEMOTHERAP TIM CALLE MD Ot Z68.42 BODY MASS INDEX (BMI) 45.0-49.9, ADULT TIM CALLE MD Ot Z76.89 [facility] TIM CALLE MD Ot 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 TIM CALLE MD Ot Z79.899 OTHER [facility] (CURRENT) DRUG THERAPY TIM CALLE MD Ot Z90.710 ACQUIRED ABSENCE OF BOTH CERVIX AND UTER 03/09/1337 TIM CALLE MD, Ot C54.1 MALIGNANT NEOPLASM OF ENDOMETRIUM 03/09/1337 TIM CALLE MD, Ot 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 03/09/1337 TIM CALLE MD Ot E66.01 MORBID (SEVERE) OBESITY DUE TO EXCESS CA 03/09/1337 TIM CALLE MD Ot I10 ESSENTIAL (PRIMARY) HYPERTENSION 03/09/1337 TIM CALLE MD Ot I27.82 CHRONIC PULMONARY EMBOLISM 03/09/1337 TIM CALLE MD Ot Z51.11 ENCOUNTER FOR ANTINEOPLASTIC CHEMOTHERAP 03/09/1337 TIM CALLE MD Ot Z68.42 BODY MASS INDEX (BMI) 45.0-49.9, ADULT 03/09/1337 TIM CALLE MD Ot Z79.01 [facility] (CURRENT) USE OF ANTICOAGULANT 03/09/1337 TIM CALLE MD Ot Z79.899 OTHER STAINED GLASS GLAZIER HELPER (CURRENT) DRUG THERAPY 03/09/1337 TIM CALLE MD Ot Z90.710 ACQUIRED ABSENCE OF BOTH CERVIX AND UTER 08/16/2017 Ot 592.9 URIN LESLIE CALCULUS NOS 08/16/2017 Ot 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.10 DIV ERTICULOSIS COLON (W/O MENT OF HEMORR 08/16/2017 Ot 599.70 HEM ATURIA, UNSPECIFIED 08/16/2017 Ot 724.5 BACK ACHE NOS 08/24/2017 BOB JOHANSEN DO Ot C54.1 MALIGNANT NEOPLASM OF ENDOMETRIUM 08/24/2017 BOB JOHANSEN DO Ot Z01.8 18 ENCOUNTER FOR OTHER PREPROCEDURAL EXAMIN 08/28/2017 BOB JOHANSEN DO Ot C54.1 MALIGNANT NEOPLASM OF ENDOMETRIUM 08/28/2017 BOB JOHANSEN DO Ot Z01.8 18 ENCOUNTER FOR OTHER PREPROCEDURAL EXAMIN 08/28/2017 BOB JOHANSEN DO Ot C54.1 MALIGNANT NEOPLASM OF ENDOMETRIUM 08/28/2017 BOB JOHANSEN DO Ot I87.2 VENOUS INSUFFICIENCY (CHRONIC) (PERIPHER 08/28/2017 BOB JOHANSEN DO Ot Z11.2 ENCOUNTER FOR SCREENING FOR OTHER BACTER 08/28/2017 BOB JOHANSEN DO Ot Z88.0 ALLERGY STATUS TO PENICILLIN 08/28/2017 BOB JOHANSEN DO Ot Z88.1 ALLERGY STATUS TO OTHER ANTIBIOTIC AGENT 08/28/2017 BOB JOHANSEN DO Ot Z88.5 ALLERGY STATUS TO NARCOTIC AGENT STATUS 08/29/2017 BOB JOHANSEN DO Ot C54.1 MALIGNANT NEOPLASM OF ENDOMETRIUM 08/29/2017 DELMAN DO, BOB B Ot I87.2 VENOUS INSUFFICIENCY (CHRONIC) (PERIPHER 08/29/2017 DELMAN DO, BOB B Ot Z11.2 ENCOUNTER FOR SCREENING FOR OTHER BACTER 08/29/2017 DELMAN DO, BOB B Ot Z88.0 ALLERGY STATUS TO PENICILLIN 08/29/2017 DELMAN DO, BOB B Ot Z88.1 ALLERGY STATUS TO OTHER ANTIBIOTIC AGENT 08/29/2017 DELMAN DO, BOB B Ot Z88.5 ALLERGY STATUS TO NARCOTIC AGENT STATUS 08/30/2017 DELMAN DO, BOB B Ot C54.1 MALIGNANT NEOPLASM OF ENDOMETRIUM 08/30/2017 DELMAN DO, BOB B Ot Z01.8 18 ENCOUNTER FOR OTHER PREPROCEDURAL EXAMIN 09/06/2017 DELMAN DO, BOB B Ot C54.1 MALIGNANT NEOPLASM OF ENDOMETRIUM 09/06/2017 DELMAN DO, BOB B Ot I87.2 VENOUS INSUFFICIENCY (CHRONIC) (PERIPHER 09/06/2017 DELMAN DO, BOB B Ot Z11.2 ENCOUNTER FOR SCREENING FOR OTHER BACTER 09/06/2017 DELMAN DO, BOB B Ot Z88.0 ALLERGY STATUS TO PENICILLIN 09/06/2017 DELMAN DO, BOB B Ot Z88.1 ALLERGY STATUS TO OTHER ANTIBIOTIC AGENT 09/06/2017 DELMAN DO, BOB B Ot Z88.5 ALLERGY STATUS TO NARCOTIC AGENT STATUS 09/07/2017 TIM CALLE MD Ot C54.1 MALIGNANT NEOPLASM OF ENDOMETRIUM 09/07/2017 TIM CALLE MD Ot 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 09/07/2017 TIM CALLE MD Ot E66.01 MORBID (SEVERE) OBESITY DUE TO EXCESS CA 09/07/2017 TIM CALLE MD Ot I10 ESSENTIAL (PRIMARY) HYPERTENSION 09/07/2017 TIM CALLE MD Ot I27.82 CHRONIC PULMONARY EMBOLISM 09/07/2017 TIM CALLE MD Ot Z68.42 BODY MASS INDEX (BMI) 45.0-49.9, ADULT 09/07/2017 TIM CALLE MD Ot Z79.01 [facility] (CURRENT) USE OF ANTICOAGULANT 09/07/2017 TIM CALLE MD Ot Z79.899 OTHER STAINED GLASS GLAZIER HELPER (CURRENT) DRUG THERAPY 09/07/2017 TIM CALLE MD Ot Z90.710 ACQUIRED ABSENCE OF BOTH CERVIX AND UTER 09/29/2017 TIM CALLE MD, Ot C54.1 MALIGNANT NEOPLASM OF ENDOMETRIUM 09/29/2017 TIM CALLE MD Ot 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 09/29/2017 TIM CALLE MD Ot E66.01 MORBID (SEVERE) OBESITY DUE TO EXCESS CA 09/29/2017 TIM CALLE MD Ot I10 ESSENTIAL (PRIMARY) HYPERTENSION 09/29/2017 TIM CALLE MD Ot I27.82 CHRONIC PULMONARY EMBOLISM 09/29/2017 TIM CALLE MD Ot Z68.42 BODY MASS INDEX (BMI) 45.0-49.9, ADULT 09/29/2017 TIM CALLE MD Ot Z79.01 [facility] (CURRENT) USE OF ANTICOAGULANT 09/29/2017 TIM CALLE MD Ot Z79.899 OTHER [facility] (CURRENT) DRUG THERAPY 09/29/2017 TIM CALLE MD Ot Z90.710 ACQUIRED ABSENCE OF BOTH CERVIX AND UTER 09/29/2017 JODY BARAJAS DO Ot C54.1 MALIGNANT NEOPLASM OF ENDOMETRIUM 09/29/2017 JODY BARAJAS DO Ot E87.6 HYPOKALEMIA 09/29/2017 JODY BARAJAS DO Ot F41.9 ANXIETY DISORDER, UNSPECIFIED 09/29/2017 JODY BARAJAS DO Ot I89.0 LYMPHEDEMA, NOT ELSEWHERE CLASSIFIED 09/29/2017 JODY BARAJAS DO Ot K57.32 DVTRCLI OF LG INT W/O PERFORATION OR ABS 09/29/2017 JODY BARAJAS DO Ot K59.09 OTHER CONSTIPATION 09/29/2017 JODY BARAJAS DO Ot M81.0 AGE-RELATED OSTEOPOROSIS W/O CURRENT PAT 09/29/2017 JODY BARAJAS DO Ot N39.0 URINARY TRACT INFECTION, SITE NOT SPECIF 09/29/2017 JODY BARAJAS DO Ot Z86.71 1 PERSONAL HISTORY OF PULMONARY EMBOLISM 09/29/2017 JODY BARAJAS DO Ot Z86.71 8 PERSONAL HISTORY OF OTHER VENOUS THROMBO 09/29/2017 JODY BARAJAS DO Ot Z88.0 ALLERGY STATUS TO PENICILLIN 09/29/2017 JODY BARAJAS DO Ot Z88.2 ALLERGY STATUS TO SULFONAMIDES STATUS 09/29/2017 JODY BARAJAS DO Ot Z88.5 ALLERGY STATUS TO NARCOTIC AGENT STATUS 09/29/2017 JODY BARAJAS DO Ot Z92.21 PERSONAL HISTORY OF ANTINEOPLASTIC CHEMO 09/29/2017 JODY BARAJAS DO Ot Z92.3 PERSONAL HISTORY OF IRRADIATION 09/29/2017 JODY BARAJAS DO Ot C54.1 MALIGNANT NEOPLASM OF ENDOMETRIUM 09/29/2017 JODY BARAJAS DO Ot E87.6 HYPOKALEMIA 09/29/2017 JODY BARAJAS DO Ot F41.9 ANXIETY DISORDER, UNSPECIFIED 09/29/2017 JODY BARAJAS DO Ot I89.0 LYMPHEDEMA, NOT ELSEWHERE CLASSIFIED 09/29/2017 JODY BARAJAS DO Ot K57.32 DVTRCLI OF LG INT W/O PERFORATION OR ABS 09/29/2017 JODY BARAJAS DO Ot K59.09 OTHER CONSTIPATION 09/29/2017 JODY BARAJAS DO Ot M81.0 AGE-RELATED OSTEOPOROSIS W/O CURRENT PAT 09/29/2017 JODY BARAJAS DO Ot N39.0 URINARY TRACT INFECTION, SITE NOT SPECIF 09/29/2017 JODY BARAJAS DO Ot Z86.71 1 PERSONAL HISTORY OF PULMONARY EMBOLISM 09/29/2017 JODY BARAJAS DO Ot Z86.71 8 PERSONAL HISTORY OF OTHER VENOUS THROMBO 09/29/2017 JODY BARAJAS DO Ot Z88.0 ALLERGY STATUS TO PENICILLIN 09/29/2017 JODY BARAJAS DO Ot Z88.2 ALLERGY STATUS TO SULFONAMIDES STATUS 09/29/2017 JODY BARAJAS DO Ot Z88.5 ALLERGY STATUS TO NARCOTIC AGENT STATUS 09/29/2017 JODY BARAJAS DO Ot Z92.21 PERSONAL HISTORY OF ANTINEOPLASTIC CHEMO 09/29/2017 JODY BARAJAS DO Ot Z92.3 PERSONAL HISTORY OF IRRADIATION 10/05/2017 TIM CALLE MD, Ot C54.1 MALIGNANT NEOPLASM OF ENDOMETRIUM 10/05/2017 TIM CALLE MD Ot 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 10/05/2017 TIM CALLE MD Ot E66.01 MORBID (SEVERE) OBESITY DUE TO EXCESS CA 10/05/2017 TIM CALLE MD Ot I10 ESSENTIAL (PRIMARY) HYPERTENSION 10/05/2017 TIM CALLE MD Ot I27.82 CHRONIC PULMONARY EMBOLISM 10/05/2017 TIM CALLE MD, Ot Z68.42 BODY MASS INDEX (BMI) 45.0-49.9, ADULT 10/05/2017 TIM CALLE MD Ot Z79.01 [facility] (CURRENT) USE OF ANTICOAGULANT 10/05/2017 TIM CALLE MD Ot Z79.899 OTHER STAINED GLASS GLAZIER HELPER (CURRENT) DRUG THERAPY 10/05/2017 TIM CALLE MD Ot Z90.710 ACQUIRED ABSENCE OF BOTH CERVIX AND UTER 10/05/2017 TIM CALLE MD Ot C54.1 MALIGNANT NEOPLASM OF ENDOMETRIUM 10/05/2017 TIM CALLE MD Ot 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 10/05/2017 TIM CALLE MD Ot E66.01 MORBID (SEVERE) OBESITY DUE TO EXCESS CA 10/05/2017 TIM CALLE MD Ot I10 ESSENTIAL (PRIMARY) HYPERTENSION 10/05/2017 TIM CALLE MD Ot I27.82 CHRONIC PULMONARY EMBOLISM 10/05/2017 TIM CALLE MD Ot Z68.42 BODY MASS INDEX (BMI) 45.0-49.9, ADULT 10/05/2017 TIM CALLE MD Ot Z79.01 [facility] (CURRENT) USE OF ANTICOAGULANT 10/05/2017 TIM CALLE MD Ot Z79.899 OTHER STAINED GLASS GLAZIER HELPER (CURRENT) DRUG THERAPY 10/05/2017 TIM CALLE MD Ot Z90.710 ACQUIRED ABSENCE OF BOTH CERVIX AND UTER 11/02/2017 TIM CALLE MD Ot C54.1 MALIGNANT NEOPLASM OF ENDOMETRIUM 11/02/2017 TIM CALLE MD Ot 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 11/02/2017 TIM CALLE MD Ot E66.01 MORBID (SEVERE) OBESITY DUE TO EXCESS CA 11/02/2017 TIM CALLE MD Ot I10 ESSENTIAL (PRIMARY) HYPERTENSION 11/02/2017 TIM CALLE MD Ot I27.82 CHRONIC PULMONARY EMBOLISM 11/02/2017 TIM CALLE MD Ot Z51.11 ENCOUNTER FOR ANTINEOPLASTIC CHEMOTHERAP 11/02/2017 TIM CALLE MD Ot Z68.42 BODY MASS INDEX (BMI) 45.0-49.9, ADULT 11/02/2017 TIM CALLE MD Ot Z76.89 [facility] 11/02/2017 TIM CALLE MD Ot 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 11/02/2017 TIM CALLE MD Ot Z79.899 OTHER STAINED GLASS GLAZIER HELPER (CURRENT) DRUG THERAPY 11/02/2017 TIM CALLE MD Ot Z90.710 ACQUIRED ABSENCE OF BOTH CERVIX AND UTER 11/02/2017 TIM CALLE MD Ot C54.1 MALIGNANT NEOPLASM OF ENDOMETRIUM 11/02/2017 TIM CALLE MD Ot 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 11/02/2017 TIM CALLE MD Ot E66.01 MORBID (SEVERE) OBESITY DUE TO EXCESS CA 11/02/2017 TIM CALLE MD Ot I10 ESSENTIAL (PRIMARY) HYPERTENSION 11/02/2017 TIM CALLE MD Ot I27.82 CHRONIC PULMONARY EMBOLISM 11/02/2017 TIM CALLE MD Ot Z68.42 BODY MASS INDEX (BMI) 45.0-49.9, ADULT 11/02/2017 TIM CALLE MD Ot 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 11/02/2017 TIM CALLE MD Ot Z79.899 OTHER [facility] (CURRENT) DRUG THERAPY 11/02/2017 TIM CALLE MD Ot Z90.710 ACQUIRED ABSENCE OF BOTH CERVIX AND UTER 11/02/2017 TIM CALLE MD Ot C54.1 MALIGNANT NEOPLASM OF ENDOMETRIUM 11/02/2017 TIM CALLE MD Ot 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 11/02/2017 TIM CALLE MD Ot E66.01 MORBID (SEVERE) OBESITY DUE TO EXCESS CA 11/02/2017 TIM CALLE MD Ot I10 ESSENTIAL (PRIMARY) HYPERTENSION 11/02/2017 TIM CALLE MD Ot I27.82 CHRONIC PULMONARY EMBOLISM 11/02/2017 TIM CALLE MD Ot Z68.42 BODY MASS INDEX (BMI) 45.0-49.9, ADULT 11/02/2017 TIM CALLE MD Ot Z79.01 [facility]PC (CURRENT) USE OF ANTICOAGULANT 11/02/2017 TIM CALLE MD Ot Z79.899 OTHER [facility] (CURRENT) DRUG THERAPY 11/02/2017 TIM CALLE MD Ot Z90.710 ACQUIRED ABSENCE OF BOTH CERVIX AND UTER 11/03/2017 TIM CALLE MD Ot C54.1 MALIGNANT NEOPLASM OF ENDOMETRIUM 11/03/2017 TIM CALLE MD Ot 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 11/03/2017 TIM CALLE MD Ot E66.01 MORBID (SEVERE) OBESITY DUE TO EXCESS CA 11/03/2017 TIM CALLE MD Ot I10 ESSENTIAL (PRIMARY) HYPERTENSION 11/03/2017 TIM CALLE MD Ot I27.82 CHRONIC PULMONARY EMBOLISM 11/03/2017 ITM CALLE MD Ot Z68.42 BODY MASS INDEX (BMI) 45.0-49.9, ADULT 11/03/2017 TIM CALLE MD Ot 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 11/03/2017 TIM CALLE MD Ot Z79.899 OTHER FPC (CURRENT) DRUG THERAPY 11/03/2017 TIM CALLE MD Ot Z90.710 ACQUIRED ABSENCE OF BOTH CERVIX AND UTER 11/28/2017 TIM CALLE MD Ot C54.1 MALIGNANT NEOPLASM OF ENDOMETRIUM 11/28/2017 TIM CALLE MD Ot 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 11/28/2017 TIM CALLE MD Ot E66.01 MORBID (SEVERE) OBESITY DUE TO EXCESS CA 11/28/2017 TIM CALLE MD Ot I10 ESSENTIAL (PRIMARY) HYPERTENSION 11/28/2017 TIM CALLE MD Ot I27.82 CHRONIC PULMONARY EMBOLISM 11/28/2017 TIM CALLE MD Ot Z51.11 ENCOUNTER FOR ANTINEOPLASTIC CHEMOTHERAP 11/28/2017 TIM CALLE MD Ot Z68.42 BODY MASS INDEX (BMI) 45.0-49.9, ADULT 11/28/2017 TIM CALLE MD Ot Z79.01 [facility] (CURRENT) USE OF ANTICOAGULANT 11/28/2017 TIM CALLE MD Ot Z79.899 OTHER STAINED GLASS GLAZIER HELPER (CURRENT) DRUG THERAPY 11/28/2017 TIM CALLE MD Ot Z90.710 ACQUIRED ABSENCE OF BOTH CERVIX AND UTER 11/28/2017 TIM CALLE MD Ot C54.1 MALIGNANT NEOPLASM OF ENDOMETRIUM 11/28/2017 TIM CALLE MD Ot 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 11/28/2017 TIM CALLE MD Ot E66.01 MORBID (SEVERE) OBESITY DUE TO EXCESS CA 11/28/2017 TIM CALLE MD Ot I10 ESSENTIAL (PRIMARY) HYPERTENSION 11/28/2017 TIM CALLE MD Ot I27.82 CHRONIC PULMONARY EMBOLISM 11/28/2017 TIM CALLE MD Ot Z51.11 ENCOUNTER FOR ANTINEOPLASTIC CHEMOTHERAP 11/28/2017 TIM CALLE MD Ot Z68.42 BODY MASS INDEX (BMI) 45.0-49.9, ADULT 11/28/2017 TIM CALLE MD Ot 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 11/28/2017 TIM CALLE MD Ot Z79.899 OTHER [facility] (CURRENT) DRUG THERAPY 11/28/2017 TIM CALLE MD Ot Z90.710 ACQUIRED ABSENCE OF BOTH CERVIX AND UTER 01/08/2018 TIM CALLE MD Ot C54.1 MALIGNANT NEOPLASM OF ENDOMETRIUM 01/08/2018 TIM CALLE MD Ot 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 01/08/2018 TIM CALLE MD Ot E66.01 MORBID (SEVERE) OBESITY DUE TO EXCESS CA 01/08/2018 TIM CALLE MD Ot I10 ESSENTIAL (PRIMARY) HYPERTENSION 01/08/2018 TIM CALLE MD Ot I27.82 CHRONIC PULMONARY EMBOLISM 01/08/2018 TIM CALLE MD Ot Z51.11 ENCOUNTER FOR ANTINEOPLASTIC CHEMOTHERAP 01/08/2018 TIM CALLE MD Ot Z68.42 BODY MASS INDEX (BMI) 45.0-49.9, ADULT 01/08/2018 TIM CALLE MD Ot 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 01/08/2018 TIM CALLE MD Ot Z79.899 OTHER [facility]PC (CURRENT) DRUG THERAPY 01/08/2018 TIM CALLE MD Ot Z90.710 ACQUIRED ABSENCE OF BOTH CERVIX AND UTER 02/14/2018 TIM CALLE MD Ot C54.1 MALIGNANT NEOPLASM OF ENDOMETRIUM 02/14/2018 TIM CALLE MD, Ot 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 02/14/2018 TIM CALLE MD Ot E66.01 MORBID (SEVERE) OBESITY DUE TO EXCESS CA 02/14/2018 TIM CALLE MD Ot I10 ESSENTIAL (PRIMARY) HYPERTENSION 02/14/2018 TIM CALLE MD Ot I27.82 CHRONIC PULMONARY EMBOLISM 02/14/2018 TIM CALLE MD Ot Z51.0 ENCOUNTER FOR ANTINEOPLASTIC RADIATION T 02/14/2018 TIM CALLE MD Ot Z68.42 BODY MASS INDEX (BMI) 45.0-49.9, ADULT 02/14/2018 TIM CALLE MD Ot 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 02/14/2018 TIM CALLE MD Ot Z79.899 OTHER [facility]PC (CURRENT) DRUG THERAPY 02/14/2018 TIM CALLE MD Ot Z90.710 ACQUIRED ABSENCE OF BOTH CERVIX AND UTER 03/08/2018 TIM CALLE MD Ot C54.1 MALIGNANT NEOPLASM OF ENDOMETRIUM 03/08/2018 TIM CALLE MD Ot 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 03/08/2018 TIM CALLE MD Ot E66.01 MORBID (SEVERE) OBESITY DUE TO EXCESS CA 03/08/2018 TIM CALLE MD Ot I10 ESSENTIAL (PRIMARY) HYPERTENSION 03/08/2018 TIM CALLE MD Ot I27.82 CHRONIC PULMONARY EMBOLISM 03/08/2018 TIM CALLE MD Ot Z51.0 ENCOUNTER FOR ANTINEOPLASTIC RADIATION T 03/08/2018 TIM CALLE MD Ot Z68.42 BODY MASS INDEX (BMI) 45.0-49.9, ADULT 03/08/2018 TIM CALLE MD Ot 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 03/08/2018 TIM CALLE MD Ot Z79.899 OTHER [facility] (CURRENT) DRUG THERAPY 03/08/2018 TIM CALLE MD Ot Z90.710 ACQUIRED ABSENCE OF BOTH CERVIX AND UTER 04/06/2018 TIM CALLE MD Ot C54.1 MALIGNANT NEOPLASM OF ENDOMETRIUM 04/06/2018 TIM CALLE MD Ot Nicol7.5 SECONDARY AND UNSP MALIGNANT NEOPLASM OF 04/06/2018 TIM CALLE MD Ot E66.01 MORBID (SEVERE) OBESITY DUE TO EXCESS CA 04/06/2018 TIM CALLE MD Ot I10 ESSENTIAL (PRIMARY) HYPERTENSION 04/06/2018 TIM CALLE MD Ot I27.82 CHRONIC PULMONARY EMBOLISM 04/06/2018 TIM CALLE MD Ot Z51.0 ENCOUNTER FOR ANTINEOPLASTIC RADIATION T 04/06/2018 TIM CALLE MD Ot Z68.42 BODY MASS INDEX (BMI) 45.0-49.9, ADULT 04/06/2018 TIM CALLE MD Ot 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 04/06/2018 TIM CALLE MD Ot Z79.899 OTHER [facility] (CURRENT) DRUG THERAPY 04/06/2018 TIM CALLE MD Ot Z90.710 ACQUIRED ABSENCE OF BOTH CERVIX AND UTER 04/08/2018 TIM CALLE MD Ot C54.1 MALIGNANT NEOPLASM OF ENDOMETRIUM 04/08/2018 TIM CALLE MD Ot 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 04/08/2018 TIM CALLE MD Ot E66.01 MORBID (SEVERE) OBESITY DUE TO EXCESS CA 04/08/2018 TIM CALLE MD Ot I10 ESSENTIAL (PRIMARY) HYPERTENSION 04/08/2018 TIM CALLE MD Ot I27.82 CHRONIC PULMONARY EMBOLISM 04/08/2018 TIM CALLE MD Ot Z51.0 ENCOUNTER FOR ANTINEOPLASTIC RADIATION T 04/08/2018 TIM CALLE MD Ot Z51.11 ENCOUNTER FOR ANTINEOPLASTIC CHEMOTHERAP 04/08/2018 TIM CALLE MD Ot Z68.42 BODY MASS INDEX (BMI) 45.0-49.9, ADULT 04/08/2018 TIM CALLE MD Ot 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 04/08/2018 TIM CALLE MD Ot Z79.899 OTHER STAINED GLASS GLAZIER HELPER (CURRENT) DRUG THERAPY 04/08/2018 TIM CALLE MD Ot Z90.710 ACQUIRED ABSENCE OF BOTH CERVIX AND UTER 04/09/2018 TIM CALLE MD Ot C54.1 MALIGNANT NEOPLASM OF ENDOMETRIUM 04/09/2018 TIM CALLE MD Ot 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 04/09/2018 TIM CALLE MD Ot E66.01 MORBID (SEVERE) OBESITY DUE TO EXCESS CA 04/09/2018 TIM CALLE MD Ot I10 ESSENTIAL (PRIMARY) HYPERTENSION 04/09/2018 TIM CALLE MD Ot I27.82 CHRONIC PULMONARY EMBOLISM 04/09/2018 TIM CALLE MD Ot Z51.0 ENCOUNTER FOR ANTINEOPLASTIC RADIATION T 04/09/2018 TIM CALLE MD Ot Z51.11 ENCOUNTER FOR ANTINEOPLASTIC CHEMOTHERAP 04/09/2018 TIM CALLE MD Ot Z68.42 BODY MASS INDEX (BMI) 45.0-49.9, ADULT 04/09/2018 TIM CALLE MD Ot Z79.01 [facility]PC (CURRENT) USE OF ANTICOAGULANT 04/09/2018 TIM CALLE MD Ot Z79.899 OTHER STAINED GLASS GLAZIER HELPER (CURRENT) DRUG THERAPY 04/09/2018 TIM CALLE MD Ot Z90.710 ACQUIRED ABSENCE OF BOTH CERVIX AND UTER 05/17/2018 TIM CALLE MD Ot C54.1 MALIGNANT NEOPLASM OF ENDOMETRIUM 05/17/2018 TIM CALLE MD Ot 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 05/17/2018 TIM CALLE MD Ot E66.01 MORBID (SEVERE) OBESITY DUE TO EXCESS CA 05/17/2018 TIM CALLE MD Ot I10 ESSENTIAL (PRIMARY) HYPERTENSION 05/17/2018 TIM CALLE MD Ot I27.82 CHRONIC PULMONARY EMBOLISM 05/17/2018 TIM CALLE MD Ot Z51.0 ENCOUNTER FOR ANTINEOPLASTIC RADIATION T 05/17/2018 TIM CALLE MD Ot Z68.42 BODY MASS INDEX (BMI) 45.0-49.9, ADULT 05/17/2018 TIM CALLE MD Ot 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 05/17/2018 TIM CALLE MD Ot Z79.899 OTHER [facility] (CURRENT) DRUG THERAPY 05/17/2018 TIM CALLE MD Ot Z90.710 ACQUIRED ABSENCE OF BOTH CERVIX AND UTER 06/06/2018 TIM CALLE MD Ot C54.1 MALIGNANT NEOPLASM OF ENDOMETRIUM 06/06/2018 TIM CALLE MD Ot 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 06/06/2018 TIM CALLE MD Ot E66.01 MORBID (SEVERE) OBESITY DUE TO EXCESS CA 06/06/2018 TIM CALLE MD Ot I10 ESSENTIAL (PRIMARY) HYPERTENSION 06/06/2018 TIM CALLE MD Ot I27.82 CHRONIC PULMONARY EMBOLISM 06/06/2018 TIM CALLE MD Ot Z68.42 BODY MASS INDEX (BMI) 45.0-49.9, ADULT 06/06/2018 TIM CALLE MD Ot 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 06/06/2018 TIM CALLE MD Ot Z79.899 OTHER [facility] (CURRENT) DRUG THERAPY 06/06/2018 TIM CALLE MD Ot Z90.710 ACQUIRED ABSENCE OF BOTH CERVIX AND UTER 07/10/2018 TIM CALLE MD Ot C54.1 MALIGNANT NEOPLASM OF ENDOMETRIUM 07/10/2018 TIM CALLE MD Ot 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 07/10/2018 TIM CALLE MD Ot E66.01 MORBID (SEVERE) OBESITY DUE TO EXCESS CA 07/10/2018 TIM CALLE MD Ot I10 ESSENTIAL (PRIMARY) HYPERTENSION 07/10/2018 TIM CALLE MD Ot I27.82 CHRONIC PULMONARY EMBOLISM 07/10/2018 TIM CALLE MD Ot Z68.42 BODY MASS INDEX (BMI) 45.0-49.9, ADULT 07/10/2018 TIM CALLE MD Ot 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 07/10/2018 TIM CALLE MD Ot Z79.899 OTHER STAINED GLASS GLAZIER HELPER (CURRENT) DRUG THERAPY 07/10/2018 TIM CALLE MD Ot Z90.710 ACQUIRED ABSENCE OF BOTH CERVIX AND UTER 07/11/2018 TIM CALLE MD Ot C54.1 MALIGNANT NEOPLASM OF ENDOMETRIUM 07/11/2018 TIM CALLE MD Ot 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 07/11/2018 TIM CALLE MD Ot E66.01 MORBID (SEVERE) OBESITY DUE TO EXCESS CA 07/11/2018 TIM CALLE MD Ot I10 ESSENTIAL (PRIMARY) HYPERTENSION 07/11/2018 TIM CALLE MD Ot I27.82 CHRONIC PULMONARY EMBOLISM 07/11/2018 TIM CALLE MD Ot Z68.42 BODY MASS INDEX (BMI) 45.0-49.9, ADULT 07/11/2018 TIM CALLE MD Ot Z79.01 FPC (CURRENT) USE OF ANTICOAGULANT 07/11/2018 TIM CALLE MD Ot Z79.899 OTHER [facility]PC (CURRENT) DRUG THERAPY 07/11/2018 TIM CALLE MD Ot Z90.710 ACQUIRED ABSENCE OF BOTH CERVIX AND UTER 08/22/2018 TIM CALLE MD, Ot C54.1 MALIGNANT NEOPLASM OF ENDOMETRIUM 08/22/2018 TIM CALLE MD Ot 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 08/22/2018 TIM CALLE MD Ot E66.01 MORBID (SEVERE) OBESITY DUE TO EXCESS CA 08/22/2018 TIM CALLE MD Ot I10 ESSENTIAL (PRIMARY) HYPERTENSION 08/22/2018 TIM CALLE MD Ot I27.82 CHRONIC PULMONARY EMBOLISM 08/22/2018 TIM CALLE MD Ot Z68.42 BODY MASS INDEX (BMI) 45.0-49.9, ADULT 08/22/2018 TIM CALLE MD Ot Z79.01 FPC (CURRENT) USE OF ANTICOAGULANT 08/22/2018 TIM CALLE MD Ot Z79.899 OTHER FPC (CURRENT) DRUG THERAPY 08/22/2018 TIM CALLE MD Ot Z90.710 ACQUIRED ABSENCE OF BOTH CERVIX AND UTER 08/28/2018 BARAJAS DO, JODY Ot R06.2 WHEEZING 09/13/2018 KARL BARRAZA, JODY Ot R06.2 WHEEZING 10/12/2018 TIM CALLE MD Ot C54.1 MALIGNANT NEOPLASM OF ENDOMETRIUM 10/12/2018 TIM CALLE MD Ot 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 10/12/2018 TIM CALLE MD Ot E66.01 MORBID (SEVERE) OBESITY DUE TO EXCESS CA 10/12/2018 TIM CALLE MD Ot I10 ESSENTIAL (PRIMARY) HYPERTENSION 10/12/2018 TIM CALLE MD, Ot I27.82 CHRONIC PULMONARY EMBOLISM 10/12/2018 TIM CALLE MD, Ot Z68.42 BODY MASS INDEX (BMI) 45.0-49.9, ADULT 10/12/2018 TIM CALLE MD Ot Z79.01 FPC (CURRENT) USE OF ANTICOAGULANT 10/12/2018 TIM CALLE MD Ot Z79.899 OTHER FPC (CURRENT) DRUG THERAPY 10/12/2018 TIM CALLE MD Ot Z90.710 ACQUIRED ABSENCE OF BOTH CERVIX AND UTER 11/19/2018 W 724.4 THOR ACIC OR LUMBOSACRAL NEURITIS OR RADICULITIS, UNSPECIFIED 11/19/2018 W M54.16 RAD ICULOPATHY, LUMBAR REGION 11/19/2018 W 723.4 BRAC HIAL NEURITIS OR RADICULITIS NOS 11/19/2018 W 724.4 THOR ACIC OR LUMBOSACRAL NEURITIS OR RADICULITIS, UNSPECIFIED 11/19/2018 W M54.12 RAD ICULOPATHY, CERVICAL REGION 11/19/2018 W M54.16 RAD ICULOPATHY, LUMBAR REGION 11/19/2018 W 723.4 BRAC HIAL NEURITIS OR RADICULITIS NOS 11/19/2018 W 724.4 THOR ACIC OR LUMBOSACRAL NEURITIS OR RADICULITIS, UNSPECIFIED 11/19/2018 W M54.12 RAD ICULOPATHY, CERVICAL REGION 11/19/2018 W M54.16 RAD ICULOPATHY, LUMBAR REGION 11/29/2018 TIM CALLE MD Ot C54.1 MALIGNANT NEOPLASM OF ENDOMETRIUM 11/29/2018 TIM CALLE MD Ot 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 11/29/2018 TIM CALLE MD Ot E66.01 MORBID (SEVERE) OBESITY DUE TO EXCESS CA 11/29/2018 TIM CALLE MD Ot I10 ESSENTIAL (PRIMARY) HYPERTENSION 11/29/2018 TIM CALLE MD Ot I27.82 CHRONIC PULMONARY EMBOLISM 11/29/2018 TIM CALLE MD Ot Z68.42 BODY MASS INDEX (BMI) 45.0-49.9, ADULT 11/29/2018 TIM CALLE MD Ot 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 11/29/2018 TIM CALLE MD Ot Z79.899 OTHER STAINED GLASS GLAZIER HELPER (CURRENT) DRUG THERAPY 11/29/2018 TIM CALLE MD Ot Z90.710 ACQUIRED ABSENCE OF BOTH CERVIX AND UTER 12/05/2018 W 723.4 BRAC HIAL NEURITIS OR RADICULITIS NOS 12/05/2018 W 724.4 THOR ACIC OR LUMBOSACRAL NEURITIS OR RADICULITIS, UNSPECIFIED 12/05/2018 W M54.12 RAD ICULOPATHY, CERVICAL REGION 12/05/2018 W M54.16 RAD ICULOPATHY, LUMBAR REGION 12/26/2018 CHARBEL GONZALEZ JR W 723.4 BRACHIAL NEURITIS OR RADICULITIS NOS 12/26/2018 CHARBEL GONZALEZ JR W 724.4 THORACIC OR LUMBOSACRAL NEURITIS OR RADICULITIS, UNSPECIFIED 12/26/2018 CHARBEL GONZALEZ JR M54.1 2 RADICULOPATHY, CERVICAL REGION 12/26/2018 CHARBEL GONZALEZ JR M54.1 6 RADICULOPATHY, LUMBAR REGION 01/08/2019 TIM CALLE MD Ot C54.1 MALIGNANT NEOPLASM OF ENDOMETRIUM 01/08/2019 TIM CALLE MD Ot 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 01/08/2019 TIM CALLE MD Ot E66.01 MORBID (SEVERE) OBESITY DUE TO EXCESS CA 01/08/2019 TIM CALLE MD Ot I10 ESSENTIAL (PRIMARY) HYPERTENSION 01/08/2019 TIM CALLE MD Ot I27.82 CHRONIC PULMONARY EMBOLISM 01/08/2019 TIM CALLE MD Ot Z68.42 BODY MASS INDEX (BMI) 45.0-49.9, ADULT 01/08/2019 TIM CALLE MD Ot 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 01/08/2019 TIM CALLE MD Ot Z79.899 OTHER STAINED GLASS GLAZIER HELPER (CURRENT) DRUG THERAPY 01/08/2019 TIM CALLE MD Ot Z90.710 ACQUIRED ABSENCE OF BOTH CERVIX AND UTER 01/09/2019 TIM CALLE MD Ot C54.1 MALIGNANT NEOPLASM OF ENDOMETRIUM 01/09/2019 TIM CALLE MD Ot 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 01/09/2019 TIM CALLE MD Ot E66.01 MORBID (SEVERE) OBESITY DUE TO EXCESS CA 01/09/2019 TIM CALLE MD Ot I10 ESSENTIAL (PRIMARY) HYPERTENSION 01/09/2019 TIM CALLE MD Ot I27.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 PULMONARY EMBOLISM 01/09/2019 TIM CALLE MD Ot Z68.42 BODY MASS INDEX (BMI) 45.0-49.9, ADULT 01/09/2019 TIM CALLE MD Ot Z79.01 FPC (CURRENT) USE OF ANTICOAGULANT 01/09/2019 TIM CALLE MD Ot Z79.899 OTHER FPC (CURRENT) DRUG THERAPY 01/09/2019 TIM CALLE MD Ot Z90.710 ACQUIRED ABSENCE OF BOTH CERVIX AND UTER 04/11/2019 JODY BARAJAS DO Ot R06.2 WHEEZING 04/11/2019 TIM CALLE MD Ot C54.1 MALIGNANT NEOPLASM OF ENDOMETRIUM 04/11/2019 TIM CALLE MD Ot 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 9 ANXIETY DISORDER, UNSPECIFIED 04/24/2019 NO RICKS MD Ot G43.909 MIGRAINE, UNSP, NOT INTRACTABLE, WITHOUT 04/24/2019 NO RICKS MD Ot I10 ESSENTIAL (PRIMARY) HYPERTENSION 04/24/2019 NO RICKS MD Ot M48.061 SPINAL STENOSIS, LUMBAR REGION WITHOUT N 04/24/2019 NO RICKS MD Ot M54. 42 LUMBAGO WITH SCIATICA, LEFT SIDE 04/24/2019 NO RICKS MD Ot M79.605 PAIN IN LEFT LEG 04/24/2019 NO RICKS MD Ot Z79. 01 FPC (CURRENT) USE OF ANTICOAGULANT 04/24/2019 NO RICKS MD Ot Z82. 49 FAMILY HX OF ISCHEM HEART DIS AND OTH DI 04/24/2019 NO RICKS MD Ot Z85. 42 PERSONAL HISTORY OF MALIGNANT NEOPLASM O 04/24/2019 NO RICKS MD Ot Z85.828 PERSONAL HISTORY OF OTHER MALIGNANT NEOP 04/24/2019 NO RICKS MD Ot Z86.711 PERSONAL HISTORY OF PULMONARY EMBOLISM 04/24/2019 NO RICKS MD Ot Z86.718 PERSONAL HISTORY OF OTHER VENOUS THROMBO 04/24/2019 NO RICKS MD Ot Z88. 0 ALLERGY STATUS TO PENICILLIN 04/24/2019 NO RICKS MD Ot Z88. 2 ALLERGY STATUS TO SULFONAMIDES STATUS 04/24/2019 NO RICKS MD Ot Z88. 5 ALLERGY STATUS TO NARCOTIC AGENT STATUS 04/24/2019 NO RICKS MD Ot Z88. 8 ALLERGY STATUS TO OT DRUG/MEDS/BIOL SUB 04/24/2019 NO RICKS MD Ot Z90. 49 ACQUIRED ABSENCE OF OTHER SPECIFIED PART 04/24/2019 NO RICKS MD Ot Z90.710 ACQUIRED ABSENCE OF BOTH CERVIX AND UTER 04/24/2019 NO RICKS MD Ot Z90. 89 ACQUIRED ABSENCE OF OTHER ORGANS 04/24/2019 NO RICKS MD Ot Z96.652 PRESENCE OF LEFT ARTIFICIAL KNEE JOINT 04/29/2019 NO RICKS MD Ot F41. 9 ANXIETY DISORDER, UNSPECIFIED 04/29/2019 NO RICKS MD Ot G43.909 MIGRAINE, UNSP, NOT INTRACTABLE, WITHOUT 04/29/2019 NO RICKS MD Ot I10 ESSENTIAL (PRIMARY) HYPERTENSION 04/29/2019 NO RICKS MD Ot M48.061 SPINAL STENOSIS, LUMBAR REGION WITHOUT N 04/29/2019 NO RICKS MD Ot M54. 42 LUMBAGO WITH SCIATICA, LEFT SIDE 04/29/2019 NO RICKS MD Ot M79.605 PAIN IN LEFT LEG 04/29/2019 NO RICKS MD Ot Z79. 01 FPC (CURRENT) USE OF ANTICOAGULANT 04/29/2019 NO RICKS MD Ot Z82. 49 FAMILY HX OF ISCHEM HEART DIS AND OTH DI 04/29/2019 NO RICKS MD, Ot Z85. 42 PERSONAL HISTORY OF MALIGNANT NEOPLASM O 04/29/2019 NO RICKS MD, Ot Z85.828 PERSONAL HISTORY OF OTHER MALIGNANT NEOP 04/29/2019 NO RICKS MD, Ot Z86.711 PERSONAL HISTORY OF PULMONARY EMBOLISM 04/29/2019 NO RICKS MD, Ot Z86.718 PERSONAL HISTORY OF OTHER VENOUS THROMBO 04/29/2019 NO RICKS MD Ot Z88. 0 ALLERGY STATUS TO PENICILLIN 04/29/2019 NO RICKS MD Ot Z88. 2 ALLERGY STATUS TO SULFONAMIDES STATUS 04/29/2019 NO RICKS MD Ot Z88. 5 ALLERGY STATUS TO NARCOTIC AGENT STATUS 04/29/2019 NO RICKS MD, Ot Z88. 8 ALLERGY STATUS TO OT DRUG/MEDS/BIOL SUB 04/29/2019 NO RICKS MD Ot Z90. 49 ACQUIRED ABSENCE OF OTHER SPECIFIED PART 04/29/2019 NO RICKS MD Ot Z90.710 ACQUIRED ABSENCE OF BOTH CERVIX AND UTER 04/29/2019 NO RICKS MD Ot Z90. 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 05/01/2019 TIM CALLE MD Ot E66.01 MORBID (SEVERE) OBESITY DUE TO EXCESS CA 05/01/2019 TIM CALLE MD Ot I10 ESSENTIAL (PRIMARY) HYPERTENSION 05/01/2019 TIM CALLE MD Ot I27.82 CHRONIC PULMONARY EMBOLISM 05/01/2019 TIM CALLE MD, Ot Z68.42 BODY MASS INDEX (BMI) 45.0-49.9, ADULT 05/01/2019 TIM CALLE MD Ot Z79.01 FPC (CURRENT) USE OF ANTICOAGULANT 05/01/2019 TIM CALLE MD, Ot Z79.899 OTHER FPC (CURRENT) DRUG THERAPY 05/01/2019 TIM CALLE MD Ot Z90.710 ACQUIRED ABSENCE OF BOTH CERVIX AND UTER 06/04/2019 TIM CALLE MD Ot C54.1 MALIGNANT NEOPLASM OF ENDOMETRIUM 06/04/2019 TIM CALLE MD Ot 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 Results Test Result Range Methicillin resistant Staphylococcus aur eus (MRSA) screening culture - 08/28/17 09:00 Methicillin resistant Staphylococcus aureus (MRSA) scr eening culture NEG NRG Complete blood count (CBC) with automate d white blood cell (WBC) differential - 09/28/17 19:00 Blood leukocytes automated count (number/volume) 10.9 10*3/uL 4.3-11.0 Blood erythrocytes automated count (number/volume) 4.45 10*6/uL 4.35-5.85 Venous blood hemoglobin measurement (mass/volume) 13.6 g/dL 11.5-16.0 Blood hematocrit (volume fraction) 41 % 35-52 Automated erythrocyte mean corpuscular volume 92 [ foz_us] 80-99 Automated erythrocyte mean corpuscular h emoglobin (mass per erythrocyte) 31 pg 25-34 Automated erythrocyte mean corpuscular h emoglobin concentration measurement (mass/volume) 33 g/dL 32-36 Automated erythrocyte distribution width ratio 15. 4 % 10.0- 14.5 Automated blood platelet count (count/volume) 261 10*3/uL 130-400 Automated blood platelet mean volume measurement 10.4 [foz_us] 7.4-10.4 Automated blood neutrophils/100 leukocytes 60 % 42-75 Automated blood lymphocytes/100 leukocytes 26 % 12-44 Blood monocytes/100 leukocytes 12 % 0-12 Automated blood eosinophils/100 leukocytes 2 % 0-10 Automated blood basophils/100 leukocytes 1 % 0-10 Blood neutrophils automated count (number/volume) 6.6 10*3 1.8-7.8 Blood lymphocytes automated count (number/volume) 2.8 10*3 1.0-4.0 Blood monocytes automated count (number/volume) 1. 3 10*3 0.0-1.0 Automated eosinophil count 0.2 10*3/uL 0 .0-0.3 Automated blood basophil count (count/volume) 0.1 10*3/uL 0.0-0.1 Comprehensive metabolic panel - 09/28/17 19:00 Serum or plasma sodium measurement (moles/volume) 138 mmol/L 135-145 Serum or plasma potassium measurement (moles/volume) 3.4 mmol/L 3.6-5.0 Serum or plasma chloride measurement (moles/volume) 101 mmol/L 98-107 Carbon dioxide 22 mmol/L 21-32 Serum or plasma anion gap determination (moles/volume) 15 mmol/L 5-14 Serum or plasma urea nitrogen measurement (mass/volume ) 18 mg/dL 7-18 Serum or plasma creatinine measurement (mass/volume) 0.90 mg/dL 0.60-1.30 Serum or plasma urea nitrogen/creatinine mass ratio 20 NRG Serum or plasma creatinine measurement w ith calculation of estimated glomerular filtration rate > NRG Serum or plasma glucose measurement (mass/volume) 109 mg/dL 70-105 Serum or plasma calcium measurement (mass/volume) 9.7 mg/dL 8.5-10.1 Serum or plasma total bilirubin measurement (mass/volu me) 0.5 mg/dL 0.1-1.0 Serum or plasma alkaline phosphatase karmen surement (enzymatic activity/volume) 66 U/L 40-136 Serum or plasma aspartate aminotransfera se measurement (enzymatic activity/volume) 40 U/L 5-34 Serum or plasma alanine aminotransferase measurement (enzymatic activity/volume) 45 U/L 0-55 Serum or plasma protein measurement (mass/volume) 6.9 g/dL 6.4-8.2 Serum or plasma albumin measurement (mass/volume) 4.0 g/dL 3.2-4.5 Complete urinalysis with reflex to cultu re - 09/28/17 19:08 Urine color determination YELLOW NRG Urine clarity determination CLEAR NR G Urine pH measurement by test strip 6.5 5-9 Specific gravity of urine by test strip 1.010 1.016-1.022 Urine protein assay by test strip, semi-quantitative NEGATIVE NEGATIVE Urine glucose detection by automated test strip NE GATIVE NEGATIVE Erythrocytes detection in urine sediment by light micr oscopy 2+ NEGATIVE Urine ketones detection by automated test strip NE GATIVE NEGATIVE Urine nitrite detection by test strip NEGATIVE NEGATIVE Urine total bilirubin detection by test strip NEGA TIVE NEGATIVE Urine urobilinogen measurement by automated test strip (mass/volume) NORMAL NORMAL Urine leukocyte esterase detection by dipstick 3+ NEGATIVE Automated urine sediment erythrocyte cou nt by microscopy (number/high power field) [HPF] NRG Automated urine sediment leukocyte count by microscopy (number/high power field) > [HPF] NRG Bacteria detection in urine sediment by light microsco py FEW NRG Squamous epithelial cells detection in u rine sediment by light microscopy 2-5 NRG Crystals detection in urine sediment by light microsco py NONE NRG Casts detection in urine sediment by light microscopy NONE NRG Mucus detection in urine sediment by light microscopy NEGATIVE NRG Complete urinalysis with reflex to culture YES NRG Bacterial urine culture - 09/28/17 19:08 Bacterial urine culture SEE COMMEN NRG COLONY COUNT . NRG Complete blood count (CBC) with automate d white blood cell (WBC) differential - 09/29/17 05:26 Blood leukocytes automated count (number/volume) 9.3 10*3/uL 4.3-11.0 Blood erythrocytes automated count (number/volume) 4.15 10*6/uL 4.35-5.85 Venous blood hemoglobin measurement (mass/volume) 12.8 g/dL 11.5-16.0 Blood hematocrit (volume fraction) 39 % 35-52 Automated erythrocyte mean corpuscular volume 93 [ foz_us] 80-99 Automated erythrocyte mean corpuscular h emoglobin (mass per erythrocyte) 31 pg 25-34 Automated erythrocyte mean corpuscular h emoglobin concentration measurement (mass/volume) 33 g/dL 32-36 Automated erythrocyte distribution width ratio 15. 3 % 10.0- 14.5 Automated blood platelet count (count/volume) 259 10*3/uL 130-400 Automated blood platelet mean volume measurement 10.4 [foz_us] 7.4-10.4 Automated blood neutrophils/100 leukocytes 61 % 42-75 Automated blood lymphocytes/100 leukocytes 26 % 12-44 Blood monocytes/100 leukocytes 11 % 0-12 Automated blood eosinophils/100 leukocytes 2 % 0-10 Automated blood basophils/100 leukocytes 1 % 0-10 Blood neutrophils automated count (number/volume) 5.7 10*3 1.8-7.8 Blood lymphocytes automated count (number/volume) 2.4 10*3 1.0-4.0 Blood monocytes automated count (number/volume) 1. 0 10*3 0.0-1.0 Automated eosinophil count 0.2 10*3/uL 0 .0-0.3 Automated blood basophil count (count/volume) 0.1 10*3/uL 0.0-0.1 Complete blood count (CBC) with automate d white blood cell (WBC) differential - 03/13/18 13:11 Blood leukocytes automated count (number/volume) 9.8 10*3/uL 4.3-11.0 Blood erythrocytes automated count (number/volume) 4.35 10*6/uL 4.35-5.85 Venous blood hemoglobin measurement (mass/volume) 13.7 g/dL 11.5-16.0 Blood hematocrit (volume fraction) 42 % 35-52 Automated erythrocyte mean corpuscular volume 95 [ foz_us] 80-99 Automated erythrocyte mean corpuscular h emoglobin (mass per erythrocyte) 32 pg 25-34 Automated erythrocyte mean corpuscular h emoglobin concentration measurement (mass/volume) 33 g/dL 32-36 Automated erythrocyte distribution width ratio 16. 0 % 10.0- 14.5 Automated blood platelet count (count/volume) 143 10*3/uL 130-400 Automated blood platelet mean volume measurement 10.7 [foz_us] 7.4-10.4 Automated blood neutrophils/100 leukocytes 81 % 42-75 Automated blood lymphocytes/100 leukocytes 9 % 12-44 Blood monocytes/100 leukocytes 4 % 0-12 Automated blood eosinophils/100 leukocytes 5 % 0-10 Automated blood basophils/100 leukocytes 1 % 0-10 Blood neutrophils automated count (number/volume) 7.9 10*3 1.8-7.8 Blood lymphocytes automated count (number/volume) 0.8 10*3 1.0-4.0 Blood monocytes automated count (number/volume) 0. 4 10*3 0.0-1.0 Automated eosinophil count 0.5 10*3/uL 0 .0-0.3 Automated blood basophil count (count/volume) 0.1 10*3/uL 0.0-0.1 Whole blood basic metabolic panel - 07/26 13:11 Serum or plasma sodium measurement (moles/volume) 140 mmol/L 135-145 Serum or plasma potassium measurement (moles/volume) 4.4 mmol/L 3.6-5.0 Serum or plasma chloride measurement (moles/volume) 102 mmol/L 98-107 Carbon dioxide 28 mmol/L 21-32 Serum or plasma anion gap determination (moles/volume) 10 mmol/L 5-14 Serum or plasma urea nitrogen measurement (mass/volume ) 19 mg/dL 7-18 Serum or plasma creatinine measurement (mass/volume) 0.82 mg/dL 0.60-1.30 Serum or plasma urea nitrogen/creatinine mass ratio 23 NRG Serum or plasma creatinine measurement w ith calculation of estimated glomerular filtration rate > NRG Serum or plasma glucose measurement (mass/volume) 91 mg/dL 70-105 Serum or plasma calcium measurement (mass/volume) 9.8 mg/dL 8.5-10.1 CULTURE, THROAT - 07/31/18 17:19 CULTURE, THROAT SEE NOTE NRG Complete blood count (CBC) with automate d white blood cell (WBC) differential - 06/13/19 18:18 Blood leukocytes automated count (number/volume) 9.1 10*3/uL 4.3-11.0 Blood erythrocytes automated count (number/volume) 4.48 10*6/uL 4.35-5.85 Venous blood hemoglobin measurement (mass/volume) 13.4 g/dL 11.5-16.0 Blood hematocrit (volume fraction) 41 % 35-52 Automated erythrocyte mean corpuscular volume 92 [ foz_us] 80-99 Automated erythrocyte mean corpuscular h emoglobin (mass per erythrocyte) 30 pg 25-34 Automated erythrocyte mean corpuscular h emoglobin concentration measurement (mass/volume) 32 g/dL 32-36 Automated erythrocyte distribution width ratio 14. 9 % 10.0- 14.5 Automated blood platelet count (count/volume) 258 10*3/uL 130-400 Automated blood platelet mean volume measurement 10.2 [foz_us] 7.4-10.4 Automated blood neutrophils/100 leukocytes 73 % 42-75 Automated blood lymphocytes/100 leukocytes 13 % 12-44 Blood monocytes/100 leukocytes 9 % 0-12 Automated blood eosinophils/100 leukocytes 5 % 0-10 Automated blood basophils/100 leukocytes 0 % 0-10 Blood neutrophils automated count (number/volume) 6.6 10*3 1.8-7.8 Blood lymphocytes automated count (number/volume) 1.2 10*3 1.0-4.0 Blood monocytes automated count (number/volume) 0. 8 10*3 0.0-1.0 Automated eosinophil count 0.4 10*3/uL 0 .0-0.3 Automated blood basophil count (count/volume) 0.0 10*3/uL 0.0-0.1 PT panel in platelet poor plasma by coag ulation assay - 06/13/19 18:18 Prothrombin time (PT) in platelet poor plasma by coagu lation assay 21.2 s 12.2-14.7 INR in platelet poor plasma or blood by coagulation as say 1.8 0.8-1.4 Activated partial thromboplastin time (a PTT) in platelet poor plasma bycoagulation assay - 06/13/19 18:18 Activated partial thromboplastin time (a PTT) in platelet poor plasma bycoagulation assay 88 s 24-35 Comprehensive metabolic panel - 06/13/19 18:18 Serum or plasma sodium measurement (moles/volume) 138 mmol/L 135-145 Serum or plasma potassium measurement (moles/volume) 3.4 mmol/L 3.6-5.0 Serum or plasma chloride measurement (moles/volume) 98 mmol/L 98-107 Carbon dioxide 25 mmol/L 21-32 Serum or plasma anion gap determination (moles/volume) 15 mmol/L 5-14 Serum or plasma urea nitrogen measurement (mass/volume ) 15 mg/dL 7-18 Serum or plasma creatinine measurement (mass/volume) 1.06 mg/dL 0.60-1.30 Serum or plasma urea nitrogen/creatinine mass ratio 14 NRG Serum or plasma creatinine measurement w ith calculation of estimated glomerular filtration rate 51 NRG Serum or plasma glucose measurement (mass/volume) 108 mg/dL 70-105 Serum or plasma calcium measurement (mass/volume) 9.8 mg/dL 8.5-10.1 Serum or plasma total bilirubin measurement (mass/volu me) 0.5 mg/dL 0.1-1.0 Serum or plasma alkaline phosphatase karmen surement (enzymatic activity/volume) 140 U/L 40-136 Serum or plasma aspartate aminotransfera se measurement (enzymatic activity/volume) 123 U/L 5-34 Serum or plasma alanine aminotransferase measurement (enzymatic activity/volume) 144 U/L 0-55 Serum or plasma protein measurement (mass/volume) 7.0 g/dL 6.4-8.2 Serum or plasma albumin measurement (mass/volume) 3.9 g/dL 3.2-4.5 CALCIUM CORRECTED 9.9 mg/dL 8.5-10.1 Erythrocyte sedimentation rate by alistair gren method - 06/13/19 18:18 Erythrocyte sedimentation rate by westergren method 69 mm 0- 30 Encounters ACCT No. Visit Date/Time Discharge Status Pt. Type Provider Facility Loc./Unit Complaint [id number] 01/07/2019 08:30:00 01/07/2019 23:59: 59 CLS Outpatient [facility] [id number] 07/31/2018 09:20:00 Document Registration [id number] 12/18/2018 09:56:00 12/26/2018 09:30: 00 DIS Outpatient CHARBEL GONZALEZ JR [id number] 11/14/2018 08:42:00 Document Registration [id number] 06/13/2019 17:12:00 19:05:00 DIS Emergency CAIT DO, JURGEN Bowser Vi [facility] ER LEFT LEG PAIN/ POST JUDY ISRAEL [id number] 04/24/2019 16:29:00 19:11:00 DIS Emergency NO RICKS MD [facility] ER LEFT LEG PAIN [id number] 04/11/2019 14:38:00 23:59:59 CLS Outpatient LUC LEONARD, [place] [facility] ONC [id number] 10/31/2018 12:48:00 019 00:01:00 DIS Outpatient TIM CALLE MD, V [facility] ONC [id number] 08/24/2018 15:09:00 019 23:59:59 CLS Outpatient JODY BARAJAS DO [facility] RT WHEEZING [id number] 04/26/2018 09:51:00 019 00:01:00 DIS Outpatient TIM CALLE MD, [facility] ONC [id number] 04/04/2018 12:03:00 018 00:01:00 DIS Outpatient TIM CALLE MD, V [facility] ONC [id number] 01/05/2018 13:42:00 018 13:38:00 DIS Outpatient TIM CALLE MD, V [facility] ONC [id number] 10/26/2017 09:20:00 018 09:08:00 DIS Outpatient TIM CALLE MD, V [facility] ONC [id number] 09/28/2017 21:54:00 018 14:45:00 DIS Inpatient JODY BARAJAS DO, V [facility] 4TH DIVERTICULITIS/UTI [id number] 08/28/2017 08:04:00 018 12:49:00 DIS Outpatient BOB JOHANSEN DO [facility] SDC ENDOMETRIAL CANCER [id number] 08/24/2017 05:40:00 018 09:23:00 DIS Outpatient BOB JOHANSEN DO [facility] PREOP ENDOMETRIAL CANCER [id number] 06/17/2019 14:12:[address] Outpatient JURGEN CHAVIRA DO [facility] RAD SUPERFICIAL THROMBOPHLEBITIS L LEG [id number] 03/08/2012 11:50:00 Document Registration [id number] 03/06/2012 13:48:00 Document Registration
== END 2019-06-13 19:05 | disposition home or self-care (01) ==
LOC: EDUNIT# 17:11 → ER 17:12
DX: I80.02 Phlebitis and thrombophlebitis of superficial vessels of left lower extremity (principal); R74.8 Abnormal levels of other serum enzymes; I10 Essential (primary) hypertension; F41.9 Anxiety disorder, unspecified; Z85.828 Personal history of other malignant neoplasm of skin; Z85.42 Personal history of malignant neoplasm of other parts of uterus; Z98.890 Other specified postprocedural states; Z86.718 Personal history of other venous thrombosis and embolism; Z79.01 Long term (current) use of anticoagulants; Z88.2 Allergy status to sulfonamides; Z88.5 Allergy status to narcotic agent; Z88.0 Allergy status to penicillin; Z88.8 Allergy status to other drugs, medicaments and biological substances; Z86.711 Personal history of pulmonary embolism
CPT/HCPCS: 36415; 80053; 85025; 85610; 85652; 85730

== ENCOUNTER → 2019-06-17 | Outpatient (CLI) | payer MEDICARE, OTHER ==
--- NOTE | 2019-06-17 15:13 | Diagnostic Imaging Report ---
PROCEDURE: US left lower extremity venous. TECHNIQUE: Multiple real-time grayscale images were obtained over the left lower extremity in various projections. Additional duplex Doppler and color Doppler images were also obtained. INDICATION: Superficial thrombophlebitis. FINDINGS: There is no evidence of left lower extremity DVT. Left lower extremity deep venous system shows normal compressibility with normal response to augmentation and Valsalva. No fluid collection or mass is detected. IMPRESSION: No evidence of left lower extremity DVT. Dictated by: Dictated on workstation # [id number]
== END ==
LOC: RAD 14:12
PROVIDERS: ATTEND Emergency Medicine
DX: I80.02 Phlebitis and thrombophlebitis of superficial vessels of left lower extremity (principal)

== ENCOUNTER 2019-07-16 10:09 | Outpatient (RCR) | payer MEDICARE, OTHER ==
[2019-07-16 10:37] LABS: BASOPHILS # (AUTO) 0.1 10^3/uL (0.0-0.1); BASOPHILS % (AUTO) 1 % (0-10); EOSINOPHILS # (AUTO) 0.4 10^3/uL (0.0-0.3); EOSINOPHILS % (AUTO) 5 % (0-10); HEMATOCRIT 42 % (35-52); HEMOGLOBIN 13.6 G/DL (11.5-16.0); LYMPHOCYTES # (AUTO) 1.8 X 10^3 (1.0-4.0); LYMPHOCYTES % (AUTO) 24 % (12-44); MEAN CORPUSCULAR HEMOGLOBIN 30 PG (25-34); MEAN CORPUSCULAR HGB CONC 32 G/DL (32-36); MEAN CORPUSCULAR VOLUME 94 FL (80-99); MEAN PLATELET VOLUME 10.4 FL (7.4-10.4); MONOCYTES # (AUTO) 0.7 X 10^3 (0.0-1.0); MONOCYTES % (AUTO) 9 % (0-12); NEUTROPHILS # (AUTO) 4.8 X 10^3 (1.8-7.8); NEUTROPHILS % (AUTO) 62 % (42-75); PLATELET COUNT 249 10^3/uL (130-400); WHITE BLOOD COUNT 7.7 10^3/uL (4.3-11.0)
[2019-07-16 10:48] LABS: ALBUMIN 4.1 GM/DL (3.2-4.5); POTASSIUM 3.9 MMOL/L (3.6-5.0)
[2019-07-16 10:50] LABS: CALCIUM 9.6 MG/DL (8.5-10.1)
[2019-07-16 10:51] LABS: TOTAL PROTEIN 7.2 GM/DL (6.4-8.2)
[2019-07-16 10:53] LABS: BILIRUBIN,TOTAL 0.4 MG/DL (0.1-1.0)
[2019-07-16 10:54] LABS: CREATININE SERUM 1.21 MG/DL (0.60-1.30)
== END 2019-10-14 | disposition home or self-care (01) ==
LOC: ONC 10:09
PROVIDERS: ATTEND Internal Medicine Hematology & Oncology
DX: C54.1 Malignant neoplasm of endometrium (principal); C77.5 Secondary and unspecified malignant neoplasm of intrapelvic lymph nodes; I10 Essential (primary) hypertension; I27.82 Chronic pulmonary embolism; E66.01 Morbid (severe) obesity due to excess calories; Z68.42 Body mass index [BMI] 45.0-49.9, adult; Z79.01 Long term (current) use of anticoagulants; Z79.899 Other long term (current) drug therapy; Z90.710 Acquired absence of both cervix and uterus
CPT/HCPCS: 80053; 85025; G0463; 36591

== ENCOUNTER → 2019-08-06 | Outpatient (CLI) | payer MEDICARE, OTHER ==
[~2019-08-06] MED LIST changes: +BARIUM SUSPENSION 2.1% (VANILLA SILQ) 450 ML PO ONE; +HOLD METFORMIN - RECEIVED CONTRAST 20 ML VIAL IV SCH; +IOHEXOL 350 MG/ML 100 ML (OMNIPAQUE 350) VIAL IV ONE; +NS 100 ML (IVPB) BAG IV ONE
--- NOTE | 2019-08-06 12:08 | Diagnostic Imaging Report ---
PROCEDURE: CT abdomen and pelvis with and without contrast. TECHNIQUE: Precontrast acquisitions were acquired through the abdomen and pelvis. Multiple contiguous axial images were obtained through the abdomen and pelvis after the administration of intravenous contrast. Auto Exposure Controls were utilized during the CT exam to meet ALARA standards for radiation dose reduction. INDICATION: Endometrial cancer. COMPARISON: CT abdomen and pelvis from 09/08/2017. FINDINGS: Left basilar linear subsegmental atelectasis is present. No pericardial or pleural effusion. No free intraperitoneal air or fluid. Diffuse hypoattenuation of the liver is indicative of hepatic steatosis. There is no nodularity to liver surface or focal hepatic lesion. Main portal vein is patent. Cholecystectomy has been performed. No pathologic biliary duct dilatation. The spleen and pancreas are normal. No adrenal mass. Kidneys enhance symmetric without solid mass or obstructive uropathy. There is a simple cyst in the posterior aspect of the left kidney measuring 2.6 x 2.2 cm which has no enhancement and is benign in nature require no dedicated follow-up imaging. Urinary bladder is decompressed, limiting assessment. Hysterectomy has been performed. No concerning adnexal mass. There is a 1.4 x 1.1 cm low-attenuation lymph node along the left external iliac chain. There is decrease in size (previously 1.8 x 1.4 cm). Left pelvic sidewall lymph node has resolved. No new abdominal or pelvic lymphadenopathy. Stomach is filled with contrast material and has no wall thickening. No dilated loops of bowel to indicate bowel obstruction. No pericolonic inflammatory change. Sigmoid colon diverticulosis without diverticulitis. Normal caliber abdominal aorta. Postoperative changes of left hemilaminectomy and posterior instrumented fusion. Bilateral chronic sacral alar insufficiency fractures appear to be present and new since prior exam. No concerning focal osseous lesions. IMPRESSION: 1. Hysterectomy. No features of local recurrent disease. 2. Mildly enlarged lymph node along the external iliac lymph node chain has decreased in size since CT of 09/28/2017 and was likely a reactive lymph node due to the diverticulitis adjacent to this lymph node on that examination. This is unlikely due to metastatic disease. No additional lymphadenopathy. 3. Mild diffuse hepatic steatosis. Dictated by: Dictated on workstation # [id number]
== END ==
LOC: RAD 10:58
PROVIDERS: ATTEND Internal Medicine Hematology & Oncology
DX: C54.1 Malignant neoplasm of endometrium (principal); K76.0 Fatty (change of) liver, not elsewhere classified
CPT/HCPCS: 74178

== ENCOUNTER → 2019-08-27 | Outpatient (CLI) | payer MEDICARE, OTHER ==
[~2019-08-27] MED LIST changes: -BARIUM SUSPENSION 2.1% (VANILLA SILQ) 450 ML PO ONE; -HOLD METFORMIN - RECEIVED CONTRAST 20 ML VIAL IV SCH; -IOHEXOL 350 MG/ML 100 ML (OMNIPAQUE 350) VIAL IV ONE; -NS 100 ML (IVPB) BAG IV ONE
[2019-08-27 08:25] LABS: BASOPHILS # (AUTO) 0.1 10^3/uL (0.0-0.1); BASOPHILS % (AUTO) 1 % (0-10); EOSINOPHILS # (AUTO) 0.5 10^3/uL (0.0-0.3); EOSINOPHILS % (AUTO) 6 % (0-10); HEMATOCRIT 45 % (35-52); HEMOGLOBIN 14.9 G/DL (11.5-16.0); LYMPHOCYTES # (AUTO) 1.4 X 10^3 (1.0-4.0); LYMPHOCYTES % (AUTO) 19 % (12-44); MEAN CORPUSCULAR HEMOGLOBIN 30 PG (25-34); MEAN CORPUSCULAR HGB CONC 33 G/DL (32-36); MEAN CORPUSCULAR VOLUME 93 FL (80-99); MEAN PLATELET VOLUME 10.4 FL (7.4-10.4); MONOCYTES # (AUTO) 0.5 X 10^3 (0.0-1.0); MONOCYTES % (AUTO) 7 % (0-12); NEUTROPHILS # (AUTO) 4.9 X 10^3 (1.8-7.8); NEUTROPHILS % (AUTO) 67 % (42-75); PLATELET COUNT 224 10^3/uL (130-400); RED CELL DISTRIBUTION WIDTH 15.1 % (10.0-14.5); WHITE BLOOD COUNT 7.4 10^3/uL (4.3-11.0)
[2019-08-27 08:42] LABS: ALBUMIN 4.1 GM/DL (3.2-4.5); BILIRUBIN,TOTAL 0.5 MG/DL (0.1-1.0); CALCIUM 9.8 MG/DL (8.5-10.1); CREATININE SERUM 0.94 MG/DL (0.60-1.30); POTASSIUM 3.9 MMOL/L (3.6-5.0); TOTAL PROTEIN 7.2 GM/DL (6.4-8.2)
[2019-08-27 09:04] LABS: FREE T4 (FREE THYROXINE) 1.01 NG/DL (0.70-1.48)
== END ==
LOC: LAB 07:55
PROVIDERS: ATTEND Internal Medicine
DX: Z13.6 Encounter for screening for cardiovascular disorders (principal); E03.9 Hypothyroidism, unspecified; I10 Essential (primary) hypertension; R73.9 Hyperglycemia, unspecified
CPT/HCPCS: 36415; 80053; 80061; 83036; 84439; 84443; 85025

== ENCOUNTER 2019-10-15 08:20 | Outpatient (RCR) | payer MEDICARE, OTHER ==
[~2019-10-15 08:20] MED LIST changes: -CALC600T12 PO; -CETI10TA21 PO; +CETI10TA49 PO; +CLC600T PO
== END 2019-12-26 11:48 | disposition home or self-care (01) ==
LOC: ONC 08:20
PROVIDERS: ATTEND Internal Medicine Hematology & Oncology
DX: C54.1 Malignant neoplasm of endometrium (principal); C77.5 Secondary and unspecified malignant neoplasm of intrapelvic lymph nodes; I10 Essential (primary) hypertension; I27.82 Chronic pulmonary embolism; E66.01 Morbid (severe) obesity due to excess calories; Z68.42 Body mass index [BMI] 45.0-49.9, adult; Z79.01 Long term (current) use of anticoagulants; Z79.899 Other long term (current) drug therapy; Z90.710 Acquired absence of both cervix and uterus; Z45.2 Encounter for adjustment and management of vascular access device
CPT/HCPCS: 96523

== ENCOUNTER 2019-12-27 09:49 | Outpatient (RCR) | payer MEDICARE, OTHER ==
[~2019-12-27 09:49] MED LIST changes: +ALPR.25T PO; -ALPR0.254 PO; +AMLO-251 PO; -AMLO10TA7 PO
[2019-12-27 10:08] LABS: BASOPHILS # (AUTO) 0.1 10^3/uL (0.0-0.1); BASOPHILS % (AUTO) 1 % (0-10); EOSINOPHILS # (AUTO) 0.3 10^3/uL (0.0-0.3); EOSINOPHILS % (AUTO) 4 % (0-10); HEMATOCRIT 45 % (35-52); HEMOGLOBIN 14.6 G/DL (11.5-16.0); LYMPHOCYTES # (AUTO) 1.6 X 10^3 (1.0-4.0); LYMPHOCYTES % (AUTO) 21 % (12-44); MEAN CORPUSCULAR HEMOGLOBIN 30 PG (25-34); MEAN CORPUSCULAR HGB CONC 33 G/DL (32-36); MEAN CORPUSCULAR VOLUME 92 FL (80-99); MEAN PLATELET VOLUME 10.5 FL (7.4-10.4); MONOCYTES # (AUTO) 0.7 X 10^3 (0.0-1.0); MONOCYTES % (AUTO) 9 % (0-12); NEUTROPHILS # (AUTO) 4.7 X 10^3 (1.8-7.8); NEUTROPHILS % (AUTO) 65 % (42-75); PLATELET COUNT 216 10^3/uL (130-400); WHITE BLOOD COUNT 7.3 10^3/uL (4.3-11.0)
[2019-12-27 10:27] LABS: ALBUMIN 4.2 GM/DL (3.2-4.5); BILIRUBIN,TOTAL 0.4 MG/DL (0.1-1.0); CALCIUM 9.7 MG/DL (8.5-10.1); CREATININE SERUM 1.05 MG/DL (0.60-1.30); POTASSIUM 4.1 MMOL/L (3.6-5.0); TOTAL PROTEIN 7.3 GM/DL (6.4-8.2)
== END 2020-03-26 | disposition home or self-care (01) ==
LOC: ONC 09:49
PROVIDERS: ATTEND Internal Medicine Hematology & Oncology
DX: C54.1 Malignant neoplasm of endometrium (principal); E66.01 Morbid (severe) obesity due to excess calories; I10 Essential (primary) hypertension; K57.92 Diverticulitis of intestine, part unspecified, without perforation or abscess without bleeding; J40 Bronchitis, not specified as acute or chronic; Z98.890 Other specified postprocedural states; Z90.49 Acquired absence of other specified parts of digestive tract; Z90.710 Acquired absence of both cervix and uterus; Z96.652 Presence of left artificial knee joint; Z95.828 Presence of other vascular implants and grafts
CPT/HCPCS: 80053; 85025; G0463; 36591

== ENCOUNTER 2020-04-29 05:33 | Outpatient (RCR) | payer MEDICARE, OTHER ==
[~2020-04-29] VITALS: Ht 165.1 cm; Wt 90.9 kg
[2020-04-29] MEDS ORDERED: RIVA20TA PO (12:06)
== END 2020-04-29 12:47 | disposition home or self-care (01) ==
LOC: PREOP 05:33
PROVIDERS: ATTEND Surgery
DX: Z01.818 Encounter for other preprocedural examination (principal)

== ENCOUNTER → 2020-05-04 | Outpatient (CLI) | payer MEDICARE, OTHER ==
[~2020-05-04] MED LIST changes: +RIVA20TA PO
== END ==
LOC: LAB FS 10:05
PROVIDERS: ATTEND Surgery
DX: Z01.812 Encounter for preprocedural laboratory examination (principal); Z20.822 Contact with and (suspected) exposure to COVID-19; Z85.42 Personal history of malignant neoplasm of other parts of uterus
CPT/HCPCS: 87635

== ENCOUNTER 2020-05-06 07:40 | Day surgery (SDC) | payer MEDICARE, OTHER ==
[~2020-05-06] VITALS: Ht 165.1 cm; Wt 90.9 kg
[2020-05-06 08:00] VITALS: BP 158/87
[2020-05-06] MEDS ORDERED: PROPOFOL INJECTION 50 ML IV ONE (08:03)
[2020-05-06] MEDS ORDERED: MIDAZOLAM 2 MG/2 ML (VERSED) VIAL ONE ×2 (08:03→09:17)
[2020-05-06] MEDS ORDERED: LIDOCAINE/EPI 1%-1:100,000 (XYLOCAINE) 50 ML ONE (08:04)
[2020-05-06] MEDS ORDERED: CLINDAMYCIN 600 MG/50 ML IVPB 50 ML IV ONE (08:15)
[2020-05-06] MEDS ORDERED: LACTATED RINGERS 1,000 ML IV PRN (08:15)
[2020-05-06] MEDS ORDERED: ONDANSETRON 4 MG/2 ML (SDV) Z0FRAN ONE (08:24)
--- NOTE | 2020-05-06 08:41 | Progress Note-Pre Operative ---
Pre-Operative Progress Note H&P Reviewed The H&P was reviewed, patient examined and no changes noted. Time Seen by Provider: 08:34 Date H&P Reviewed: May 06, 2020 Time H&P Reviewed: 08:35 Pre-Operative Diagnosis: Venous Insufficiency BOB JOHANSEN DO May 06, 2020 08:41
[2020-05-06] MEDS ORDERED: FAMOTIDINE 20MG/2ML IV (PEPCID) IVP ONE (09:00)
[2020-05-06] MEDS ORDERED: MIDAZOLAM 2 MG/2 ML (VERSED) VIAL IVP ONE (09:15)
--- NOTE | 2020-05-06 09:43 | Progress Note-Post Operative ---
Post-Operative Progess Note Surgeon (s)/Housing Liaison (s) Surgeon BOB JOHANSEN DO Housing Liaison: TOM Yung Pre-Operative Diagnosis Venous Insufficiency Post-Operative Diagnosis same Procedure & Operative Findings Date of Procedure 05/06/20 Procedure Performed/Findings PROCEDURE: Removal of port, COMPLICATIONS: None. INDICATIONS: The patient is a 74 year-old female who had a port previously placed. Patient is ok to have port removed. The patient was explained risk and benefits of the procedure and wished to proceed with procedure. Consent was signed on the chart. PROCEDURE: The patient was taken to the operating suite and was prepped and draped in sterile fashion. A surgical pause was performed. Local anesthetic was infiltrated to the area around the port. A number 15 blade scalpel was used to make an incision. Cautery was used to dissect down to the port which was then grasped and then dissected around. The catheter was removed in its entirety. The port was then able to be dissected out of the pocket and elevated. The wound was then irrigated with copious amounts of irrigation. Hemostasis had been achieved. The subcutaneous tissues were then reapproximated using 3-0 Vicryl. Skin was then closed using 4-0 Vicryl in a running fashion. The area was then washed and dried and Skin Affix placed over the incision. The patient tolerated the procedure well without complication and was taken to recovery room in stable condition. Anesthesia Type IV sedation by CAR RETARDER OPERATOR Estimated Blood Loss Estimated blood loss (mL): scant Specimens/Packing Specimens Removed port BOB JOHANSEN DO May 06, 2020 09:43
[2020-05-06] MEDS ORDERED: ACHD5005 PO (09:45)
[2020-05-06 09:46] VITALS: BP 108/63
--- NOTE | 2020-05-06 09:46 | Discharge Inst-Surgical ---
Discharge Inst-Surgical Depart Medication/Instructions New, Converted or Re-Newed RX: RX Given to Pt/Family Patient Instructions Follow up Appt: Make appointment for 1 week. [phone] Instructions: No lifting greater than 20 pounds. No strenuous activity. May shower in 24 hours, no tub bath or soaking. Use incentive spirometer at home as directed. No Smoking Skin/Wound Care: May remove bandages in am. You need to leave the Dermabond on incision it will fall off on it's own. Symptoms to Report: Appetite Changes, Extremity Discoloration, Numbness/Tingling, Swelling Increased, Bleeding Excessive, Eyesight Changes, Pain Increased, Urine Color Change, Constipation(Persistent), Fever over 101 degree F, Pain/Pressure in chest, Urinating Difficulty, Cough Up/Vomit Blood, Heart Beat Irreg/Pounding, Pain/Pressure in jaw, Cramps in feet or legs, Lightheadedness, Pain/Pressure in shoulder, Diarrhea(Persistent), Memory Changes Suddenly, Questions/Concerns, Weight gain consecutive days, Dizziness/Fainting, Nausea/Vomiting, Shortness of Breath, Weight gain over 2 pounds If questions or concerns contact your physician Or seek help at emergency department. Activity Activity as Tolerated: Yes Activity Instructions: Avoid Stress to Incision Driving Instructions: No Driving/Refer to Dr. Ibarra Discharge Diet: No Restrictions Diet After 24 Hours: Clear Liquid if Nauseous If Any Problems/Questions/Issu: Contact Your Physician, Go to Emergency Room Skin/Wound Care Infection Signs and Symptoms: Increased Redness, Foul Odor of Wound, Increased Drainage, Skin Itchy or Has a Rash, Increased Swelling, Temperature Above 101 F Bathing Instructions: Shower Ice Pack: Ice On and Off Site BOB JOHANSEN DO May 06, 2020 09:46
[2020-05-06 09:50] VITALS: BP 96/60
--- NOTE | 2020-05-06 09:53 | Anesthesia-General Post-Op ---
MAC Patient Condition Mental Status/LOC: Same as Preop Cardiovascular: Satisfactory Nausea/Vomiting: Absent Respiratory: Satisfactory Pain: Controlled Complications: Absent Post Op Complications Complications None Follow Up Care/Instructions Patient Instructions None needed. Anesthesiology Discharge Order Discharge Order Patient is doing well, no complaints, stable vital signs, no apparent adverse anesthesia problems. No complications reported per nursing. MARY PACHECO CRNA May 06, 2020 09:53
[2020-05-06 10:05] VITALS: BP_SYST 115; BP_SYST 120; BP_DIAS 69; BP_DIAS 79
[2020-05-06 10:35] VITALS: BP 112/74
== END 2020-05-06 10:46 | disposition home or self-care (01) ==
LOC: SDC 07:40
PROVIDERS: ATTEND Surgery
DX: I87.2 Venous insufficiency (chronic) (peripheral) (principal); I10 Essential (primary) hypertension; K21.9 Gastro-esophageal reflux disease without esophagitis; E78.00 Pure hypercholesterolemia, unspecified; E66.01 Morbid (severe) obesity due to excess calories; Z68.33 Body mass index [BMI] 33.0-33.9, adult; Z79.02 Long term (current) use of antithrombotics/antiplatelets; Z88.2 Allergy status to sulfonamides; Z88.5 Allergy status to narcotic agent; Z88.0 Allergy status to penicillin; Z88.1 Allergy status to other antibiotic agents; Z90.711 Acquired absence of uterus with remaining cervical stump; Z85.42 Personal history of malignant neoplasm of other parts of uterus; Z80.9 Family history of malignant neoplasm, unspecified
CPT/HCPCS: 87081

== ENCOUNTER 2020-06-03 13:54 | Emergency (ER) | payer MEDICARE, OTHER ==
--- NOTE | 2020-06-03 14:16 | ED Abdominal Pain ---
General Chief Complaint: Abdominal/GI Problems Stated Complaint: ABD PRESSURE/PAIN History of Present Illness Date Seen by Provider: Jun 03, 2020 Time Seen by Provider: 14:10 Initial Comments 74-year-old female presents with abdominal pain/pressure. Located in the left lower quadrant. Patient reports that started on 11 May and was similar to the episode of diverticulitis which she has a history of. She started on Cipro for 10 days and symptoms improved. Patient reports that it started becoming a little bit more uncomfortable over the last couple days. Now she has quite a bit of pressure in the left lower quadrant. No nausea vomiting fevers or chills. Allergies and Home Medications Allergies Coded Allergies: Sulfa (Sulfonamide Antibiotics) (Verified Allergy, Mild, N/V, 08/24/17) codeine (Verified Allergy, Mild, N/V, 08/24/17) metronidazole (Verified Allergy, Mild, GI UPSET, 08/24/17) penicillin G (Verified Allergy, Mild, RASH, 08/24/17) Home Medications Amlodipine Besylate 10 Mg Tablet, 10 MG PO DAILY, (Reported) Cetirizine HCl 10 Mg Tablet, 10 MG PO DAILY, (Reported) Cyclobenzaprine HCl 10 Mg Tablet, 10 MG PO DAILY PRN for MUSCLE SPASMS, (Reported) Hydrocodone/Acetaminophen 1 Each Tablet, 1 EACH PO Q8H PRN for PAIN-MODERATE (5- 7) Prescribed by: BOB JOHANSEN on 05/06/20 0945 Lisinopril/Hydrochlorothiazide 1 Each Tablet, 1 TAB PO DAILY, (Reported) Rivaroxaban 20 Mg Tablet, 20 MG PO DAILY, (Reported) Patient Home Medication List Home Medication List Reviewed: Yes Review of Systems Review of Systems Constitutional: No chills, No fever Respiratory: No Symptoms Reported Cardiovascular: No Symptoms Reported Gastrointestinal: Abdominal Pain; Denies Diarrhea, Denies Nausea, Denies Vomiting Genitourinary: No Symptoms Reported Musculoskeletal: no symptoms reported Skin: no symptoms reported Psychiatric/Neurological: No Symptoms Reported Endocrine: No Symptoms Reported Hematologic/Lymphatic: No Symptoms Reported Past Gflyjzx-Dbrjuc-Noygeu Hx Past Med/Social Hx: Reviewed Nursing Past Med/Soc Hx Patient Social History 2nd Hand Smoke Exposure: No Recent Hopitalizations: No Immunizations Up To Date Date of Pneumonia Vaccine: Jan 25, 2016 Date of Influenza Vaccine: Dec 09, 2019 Seasonal Allergies Seasonal Allergies: Yes Past Medical History Surgeries: Yes (L TKR, BACK, VARICOSE VEIN STRIPPING LEFT LEG, MECL, BACK- LUMBAR,port ) Appendectomy, Gallbladder, Hysterectomy, Joint Replacement, Orthopedic, Tonsillectomy, Vascular Surgery Respiratory: Yes Pneumonia, Chronic Bronchitis, Pulmonary Embolism Currently Using CPAP: No Currently Using BIPAP: No Cardiac: Yes Deep Vein Thrombosis, Hypertension Neurological: Yes Headaches /Migraines 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) 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, 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 Genitourinary: No Gastrointestinal: Yes Chronic Constipation, Diverticulosis Musculoskeletal: Yes Degenerate Disk Disease, Osteoporosis, Arthritis, Chronic Back Pain Endocrine: No HEENT: No Loss of Vision: Bilateral Hearing Impairment: Denies Cancer: Yes (ENDOMETRIAL, BASAL CELL NOSE) Skin Did You Recieve Any Treatments: Yes What Type of Treatment Did You: Chemotherapy, Radiation, Surgical Intervention Psychosocial: Yes Anxiety Integumentary: No Blood Disorders: Yes (DVT'S AND P.E.'S ) Adverse Reaction/Blood Tranf: No (N/A) Family Medical History Cancer, Diabetes, Hypertension Physical Exam Vital Signs Vital Signs - First Documented 06/03/20 14:02 Temp 37.0 Pulse 102 Resp 18 B/P (MAP) 121/64 (83) Pulse Ox 95 O2 Delivery Room Air Capillary Refill : Height/Weight/BMI Height: 5'6.00" Weight: 198lbs. 0.0oz. 89.986964ck; 33.34 BMI Method:Stated General Appearance: WD/WN, no apparent distress Neck: full range of motion, supple Respiratory: lungs clear, normal breath sounds Cardiovascular: normal peripheral pulses, regular rate, rhythm Gastrointestinal: soft; No guarding, No rebound; tenderness (Mild tenderness left lower quadrant) Extremities: normal range of motion, non-tender Back: no CVA tenderness Neurologic/Psychiatric: no motor/sensory deficits, alert, normal mood/affect, oriented x 3 Skin: normal color, warm/dry Progress/Results/Core Measures Results/Orders Lab Results Laboratory Tests Test 06/03/20 14:02 06/03/20 14:25 Range/Units Urine Color PALE YELLOW Urine Clarity CLEAR Urine pH 6.0 5-9 Urine Specific [place] <=1.005 1.016-1.022 Urine Protein NEGATIVE NEGATIVE Urine Glucose (UA) NEGATIVE NEGATIVE Urine Ketones NEGATIVE NEGATIVE Urine Nitrite NEGATIVE NEGATIVE Urine Bilirubin NEGATIVE NEGATIVE Urine Urobilinogen 0.2 < = 1.0 MG/DL Urine Leukocyte Esterase NEGATIVE NEGATIVE Urine RBC (Auto) TRACE H NEGATIVE Urine RBC 0-2 /HPF Urine WBC 0-2 /HPF Urine Squamous Epithelial Cells 2-5 /HPF Urine Crystals NONE /LPF Urine Bacteria NEGATIVE /HPF Urine Casts NONE /LPF Urine Mucus NEGATIVE /LPF Urine Culture Indicated NO White Blood Count 8.5 4.3-11.0 10^3/uL Red Blood Count 5.15 4.35-5.85 10^6/uL Hemoglobin 15.8 11.5-16.0 G/DL Hematocrit 48 35-52 % Mean Corpuscular Volume 92 80-99 FL Mean Corpuscular Hemoglobin 31 25-34 PG Mean Corpuscular Hemoglobin Concent 33 32-36 G/DL Red Cell Distribution Width 14.0 10.0-14.5 % Platelet Count 220 130-400 10^3/uL Mean Platelet Volume 10.5 H 7.4-10.4 FL Immature Granulocyte % (Auto) 0 % Neutrophils (%) (Auto) 65 42-75 % Lymphocytes (%) (Auto) 23 12-44 % Monocytes (%) (Auto) 7 0-12 % Eosinophils (%) (Auto) 4 0-10 % Basophils (%) (Auto) 1 0-10 % Neutrophils # (Auto) 5.5 1.8-7.8 X 10^3 Lymphocytes # (Auto) 1.9 1.0-4.0 X 10^3 Monocytes # (Auto) 0.6 0.0-1.0 X 10^3 Eosinophils # (Auto) 0.3 0.0-0.3 10^3/uL Basophils # (Auto) 0.1 0.0-0.1 10^3/uL Immature Granulocyte # (Auto) 0.0 0.0-0.1 10^3/uL Sodium Level 139 135-145 MMOL/L Potassium Level 3.6 3.6-5.0 MMOL/L Chloride Level 101 98-107 MMOL/L Carbon Dioxide Level 25 21-32 MMOL/L Anion Gap 13 5-14 MMOL/L Blood Urea Nitrogen 22 H 7-18 MG/DL Creatinine 1.22 0.60-1.30 MG/DL Estimat Glomerular Filtration Rate 43 BUN/Creatinine Ratio 18 Glucose Level 123 H 70-105 MG/DL Calcium Level 9.4 8.5-10.1 MG/DL Corrected Calcium 8.5-10.1 MG/DL Total Bilirubin 0.4 0.1-1.0 MG/DL Aspartate Amino Transf (AST/SGOT) 29 5-34 U/L Alanine Aminotransferase (ALT/SGPT) 21 0-55 U/L Alkaline Phosphatase 79 40-136 U/L Total Protein 7.7 6.4-8.2 GM/DL Albumin 4.6 H 3.2-4.5 GM/DL Lipase 42 8-78 U/L My Orders Orders - VANITA BUCKNER DO Comprehensive Metabolic Panel (06/03/20 14:16) Lipase (06/03/20 14:16) Ua Culture If Indicated (06/03/20 14:16) Cbc With Automated Diff (06/03/20 14:16) Ct Abdomen/Pelvis W (06/03/20 14:16) Iohexol Injection (Omnipaque 350 Mg/Ml 1 (06/03/20 15:30) Received Contrast (Hold Metformin- Contr (06/03/20 15:30) Sodium Chloride Flush (Catheter Flush Sy (06/03/20 15:30) Ns (Ivpb) (Sodium Chloride 0.9% Ivpb Bag (06/03/20 15:30) Medications Given in ED Current Medications Medications Dose Ordered Sig/Lorena Route Start Time Stop Time Status Last Admin Dose Admin Iohexol 100 ml ONCE ONCE IV 06/03/20 15:30 06/03/20 15:31 DC 06/03/20 15:21 100 ML Sodium Chloride 10 ml NEEDED PRN IV 06/03/20 15:30 06/03/20 15:21 10 ML Sodium Chloride 100 ml ONCE ONCE IV 06/03/20 15:30 06/03/20 15:31 DC 06/03/20 15:21 80 ML Vital Signs/I&O 06/03/20 14:02 Temp 37.0 Pulse 102 Resp 18 B/P (MAP) 121/64 (83) Pulse Ox 95 O2 Delivery Room Air Progress Progress Note : Time: 16:00 Progress Note Patient with no acute findings on her CT exam or labs. As I was reviewing her results with her and the more she talked it sounds like the pain may be more related to her groin and gets worse with movement. Discussed with her as possibly she has a groin strain. Recommend she try some Tylenol, topical lidocaine and warm moist heat to affected area. If symptoms continue to bother her over the next few days she should follow-up with her primary care provider for further outpatient evaluation Diagnostic Imaging Diagonstic Imaging: CT Plain Films/CT/US/NM/MRI: abdomen Comments [facility]. [place], [place] NAME: AZAR STERN [facility] REC#: [id number] PT STATUS: REG ER : 1945 PHYSICIAN: VANITA BUCKNER DO ADMIT DATE: 06/03/20/ER FS Draft Date of Exam:06/03/20 CT ABDOMEN/PELVIS W PROCEDURE: CT abdomen and pelvis with contrast. TECHNIQUE: Multiple contiguous axial images were obtained through the abdomen and pelvis after administration of intravenous contrast. Auto Exposure Controls were utilized during the CT exam to meet ALARA standards for radiation dose reduction. All CT scans use one or more of the following dose optimizing techniques: automated exposure control, MA and/or KvP adjustment based on patient size and exam type or iterative reconstruction. INDICATION: Left-sided abdominal pain in left lower quadrant. Patient has history of diverticulitis and endometrial carcinoma. COMPARISON: Correlation is made with prior CT from 08/06/2019. FINDINGS: The lung bases are clear. No discrete liver mass is detected. Gallbladder is surgically absent. There is no biliary ductal dilatation. The pancreas and spleen are unremarkable. No adrenal mass is identified. Right kidney is unremarkable. Left kidney contains 4.1 cm low-attenuation lesion in the upper pole, suggestive of a cyst. Aorta is nonaneurysmal. No central retroperitoneal or mesenteric lymphadenopathy is identified. Small and large bowel loops are normal in caliber. There is extensive diverticulosis of the sigmoid colon but no evidence of acute diverticulitis. No free fluid or fluid collection is identified. There is no free air. The bladder is unremarkable. No iliac or inguinal lymphadenopathy is detected. Evaluation of the osseous structures demonstrates postop changes of posterior instrumented fusion with vertical stabilization rods and pedicle screws transfixing the L4 and L5 levels. IMPRESSION: 1. Left renal cyst. 2. Uncomplicated diverticulosis. There are no findings to suggest acute diverticulitis. No acute feature in the abdomen or pelvis is identified. Dictated on workstation # [id number] Dict: 06/03/20 1532 Trans: 06/03/20 1541 [id number] Interpreted by: TANIA SANON MD Electronically signed by: Reviewed: Reviewed by Me, Reviewed/Discussed Departure Impression Primary Impression: Left groin pain Additional Impression: Abdominal pain Qualified Codes: R10.32 - Left lower quadrant pain Disposition: HOME, SELF-CARE Condition: Stable Departure-Patient Inst. Referrals: JODY BARAJAS DO (PCP/Family) Primary Care Physician Patient Instructions: Abdominal Pain, Adult ED, Groin Strain Add. Discharge Instructions: Tylenol as needed for pain 4% topical lidocaine to affected area as directed on package Warm moist heat to affected area If symptoms have not improved over the next 3 to 5 days follow-up next week with your primary care provider for reevaluation All discharge instructions reviewed with patient and/or family. Voiced understanding. VANITA BUCKNER DO Jun 03, 2020 14:16
[2020-06-03 14:40] LABS: HEMATOCRIT 48 % (35-52); HEMOGLOBIN 15.8 G/DL (11.5-16.0); MEAN CORPUSCULAR HEMOGLOBIN 31 PG (25-34); MEAN CORPUSCULAR HGB CONC 33 G/DL (32-36); MEAN CORPUSCULAR VOLUME 92 FL (80-99); MEAN PLATELET VOLUME 10.5 FL (7.4-10.4); NEUTROPHILS % (AUTO) 65 % (42-75); PLATELET COUNT 220 10^3/uL (130-400); WHITE BLOOD COUNT 8.5 10^3/uL (4.3-11.0)
[2020-06-03 14:41] LABS: BASOPHILS # (AUTO) 0.1 10^3/uL (0.0-0.1); BASOPHILS % (AUTO) 1 % (0-10); EOSINOPHILS # (AUTO) 0.3 10^3/uL (0.0-0.3); EOSINOPHILS % (AUTO) 4 % (0-10); LYMPHOCYTES # (AUTO) 1.9 X 10^3 (1.0-4.0); LYMPHOCYTES % (AUTO) 23 % (12-44); MONOCYTES # (AUTO) 0.6 X 10^3 (0.0-1.0); MONOCYTES % (AUTO) 7 % (0-12); NEUTROPHILS # (AUTO) 5.5 X 10^3 (1.8-7.8)
[2020-06-03 14:50] LABS: BUN/CREATININE RATIO 18; CARBON DIOXIDE 25 MMOL/L (21-32); CHLORIDE 101 MMOL/L (98-107); CREATININE SERUM 1.22 MG/DL (0.60-1.30); GFR ESTIMATED 43; GLUCOSE 123 MG/DL (70-105); POTASSIUM 3.6 MMOL/L (3.6-5.0); SODIUM 139 MMOL/L (135-145)
[2020-06-03 14:51] LABS: ALANINE AMINOTRANSFERASE 21 U/L (0-55); ALBUMIN 4.6 GM/DL (3.2-4.5); ALKALINE PHOSPHATASE 79 U/L (40-136); BILIRUBIN,TOTAL 0.4 MG/DL (0.1-1.0); CALCIUM 9.4 MG/DL (8.5-10.1); LIPASE 42 U/L (8-78); TOTAL PROTEIN 7.7 GM/DL (6.4-8.2)
[2020-06-03] MEDS ORDERED: CATHETER FLUSH 10 ML SYR IV PRN (15:30)
[2020-06-03] MEDS ORDERED: HOLD METFORMIN - RECEIVED CONTRAST 20 ML VIAL IV SCH (15:30)
[2020-06-03] MEDS ORDERED: NS 100 ML (IVPB) BAG IV ONE (15:30)
[2020-06-03] MEDS ORDERED: IOHEXOL 350 MG/ML 100 ML (OMNIPAQUE 350) VIAL IV ONE (15:30)
--- NOTE | 2020-06-03 15:42 | Diagnostic Imaging Report ---
PROCEDURE: CT abdomen and pelvis with contrast. TECHNIQUE: Multiple contiguous axial images were obtained through the abdomen and pelvis after administration of intravenous contrast. Auto Exposure Controls were utilized during the CT exam to meet ALARA standards for radiation dose reduction. All CT scans use one or more of the following dose optimizing techniques: automated exposure control, MA and/or KvP adjustment based on patient size and exam type or iterative reconstruction. INDICATION: Left-sided abdominal pain in left lower quadrant. Patient has history of diverticulitis and endometrial carcinoma. COMPARISON: Correlation is made with prior CT from 08/06/2019. FINDINGS: The lung bases are clear. No discrete liver mass is detected. Gallbladder is surgically absent. There is no biliary ductal dilatation. The pancreas and spleen are unremarkable. No adrenal mass is identified. Right kidney is unremarkable. Left kidney contains 4.1 cm low-attenuation lesion in the upper pole, suggestive of a cyst. Aorta is nonaneurysmal. No central retroperitoneal or mesenteric lymphadenopathy is identified. Small and large bowel loops are normal in caliber. There is extensive diverticulosis of the sigmoid colon but no evidence of acute diverticulitis. No free fluid or fluid collection is identified. There is no free air. The bladder is unremarkable. No iliac or inguinal lymphadenopathy is detected. Evaluation of the osseous structures demonstrates postop changes of posterior instrumented fusion with vertical stabilization rods and pedicle screws transfixing the L4 and L5 levels. IMPRESSION: 1. Left renal cyst. 2. Uncomplicated diverticulosis. There are no findings to suggest acute diverticulitis. No acute feature in the abdomen or pelvis is identified. Dictated by: Dictated on workstation # [id number]
[2020-06-03 15:44] LABS: CLARITY,URINE CLEAR; COLOR,URINE PALE YELLOW
[2020-06-03 15:45] LABS: BILIRUBIN,URINE NEGATIVE (NEGATIVE); GLUCOSE, URINE (UA) NEGATIVE (NEGATIVE); KETONES,URINE NEGATIVE (NEGATIVE); LEUKOCYTE ESTERASE ,URINE NEGATIVE (NEGATIVE); NITRITE,URINE NEGATIVE (NEGATIVE); PROTEIN,URINE NEGATIVE (NEGATIVE)
[2020-06-03 15:48] LABS: BACTERIA,URINE NEGATIVE /HPF; RBC,URINE 0-2 /HPF; WBC,URINE 0-2 /HPF
[2020-06-03 16:07] VITALS: BP 128/64
== END 2020-06-03 16:07 | disposition home or self-care (01) ==
LOC: EDUNIT# 13:54 → ER FS 13:56
DX: R10.32 Left lower quadrant pain (principal); I10 Essential (primary) hypertension; M54.9 Dorsalgia, unspecified; G89.29 Other chronic pain; Z88.2 Allergy status to sulfonamides; Z88.5 Allergy status to narcotic agent; Z88.0 Allergy status to penicillin; Z88.8 Allergy status to other drugs, medicaments and biological substances; Z85.828 Personal history of other malignant neoplasm of skin; Z86.711 Personal history of pulmonary embolism; Z86.718 Personal history of other venous thrombosis and embolism; Z83.3 Family history of diabetes mellitus; Z82.49 Family history of ischemic heart disease and other diseases of the circulatory system; Z80.9 Family history of malignant neoplasm, unspecified; Z79.01 Long term (current) use of anticoagulants; Z79.891 Long term (current) use of opiate analgesic
CPT/HCPCS: 36415; 74177; 80053; 81000; 83690; 85025

== ENCOUNTER 2020-09-16 05:41 | Outpatient (CLI) | payer MEDICARE, OTHER ==
[~2020-09-16] VITALS: Ht 165.1 cm; Wt 91.0 kg
[~2020-09-16 05:41] MED LIST changes: +CALC600T91 PO; -CLC600T PO
== END 2020-09-16 14:48 | disposition home or self-care (01) ==
LOC: PREOP 05:41
PROVIDERS: ATTEND Surgery
DX: Z01.818 Encounter for other preprocedural examination (principal)

== ENCOUNTER 2020-09-23 09:39 | Day surgery (SDC) | payer MEDICARE, OTHER ==
[~2020-09-23] VITALS: Ht 165 cm; Wt 91.0 kg
[2020-09-23] MEDS ORDERED: LACTATED RINGERS 1,000 ML IV STA (09:54)
[2020-09-23] MEDS ORDERED: LACTATED RINGERS 1,000 ML IV ONE (10:04)
[2020-09-23 10:10] VITALS: BP 137/80
[2020-09-23] MEDS ORDERED: FAMOTIDINE 20MG/2ML IV (PEPCID) IV ONE (10:15)
[2020-09-23] MEDS ORDERED: ONDANSETRON 4 MG/2 ML (SDV) Z0FRAN ONE (10:15)
[2020-09-23] MEDS ORDERED: ONDANSETRON 4 MG/2 ML (SDV) Z0FRAN IV ONE (10:15)
[2020-09-23] MEDS ORDERED: FAMOTIDINE 20MG/2ML IV (PEPCID) ONE (10:17)
--- NOTE | 2020-09-23 10:45 | Progress Note-Pre Operative ---
Pre-Operative Progress Note H&P Reviewed The H&P was reviewed, patient examined and no changes noted. Time Seen by Provider: 10:41 Date H&P Reviewed: Sep 23, 2020 Time H&P Reviewed: 10:41 Pre-Operative Diagnosis: Diverticulitis BOB JOHANSEN DO Sep 23, 2020 10:45
[2020-09-23] MEDS ORDERED: proPOfol 200 MG/20 ML (DIPRIVAN) VIAL IV ONE (11:20)
[2020-09-23 11:50] VITALS: BP 89/50
[2020-09-23 11:55] VITALS: BP_SYST 92; BP_SYST 96; BP_DIAS 42; BP_DIAS 52
--- NOTE | 2020-09-23 11:55 | Progress Note-Post Operative ---
Post-Operative Progess Note Surgeon (s)/Mineralogy Teacher (s) Surgeon BOB JOHANSEN DO Mineralogy Teacher: none Pre-Operative Diagnosis Diverticulitis Post-Operative Diagnosis Polyp Diverticula int hemorrhoids Procedure & Operative Findings Date of Procedure 09/23/20 Procedure Performed/Findings PROCEDURE NOTE: After informed consent was obtained, the patient was brought to the endoscopy suite, placed in bed in left lateral decubitus position. She was administered IV sedation by the SUPERVIS[employer] who then monitored her vitals the entire time, heart rate, blood pressure and pulse ox, started the colonoscopy. On the way in, noted some diverticula and took a picture of them. Then pushed all the way to the cecum about 150 cm in, took a picture of the appendiceal orifice and noted the ileo- cecal valve. In the cecum saw a small polyp; elected to do a hot biopsy of this and removed it completely. Then slowly withdrew the scope insufflating to look circumferentially at the clemens looking at the cecum, up the ascending colon to the hepatic flexure, down the transverse colon, to the splenic flexure, into the descending colon down into the sigmoid. In the sigmoid saw another polyp and did another hot biopsy. Finally into the rectum, retroflexed in the rectal vault, saw some minimal internal hemorrhoids and took a picture.Then removed the scope. The patient tolerated the procedure. She was recovered in endoscopy suite. Anesthesia Type IV sedation by Anesthesia Estimated Blood Loss Estimated blood loss (mL): scant Specimens/Packing Specimens Removed cecal polyp sigmoid polyp BOB JOHANSEN DO Sep 23, 2020 11:55
--- NOTE | 2020-09-23 11:57 | Endoscopy Discharge Instruct ---
Endo Procedure/Findings Findings 1.: Polyp 2.: Diverticulosis 3.: Internal Hemorrhoids Discharge Instructions - Activity: You might feel a little sleepy until tomorrow. This is due to the medicine you received to relax you. Until tomorrow, you should: NOT drive a car, operate machinery or power tools. NOT drink any alcoholic beverages. NOT make any important decisions or sign importortant papers. Do not return to work until tomorrow, unless otherwise instructed. Resume previous activities tomorrow. Diet: Start by taking liquids. If you tolerate liquids, advance to solid food. 1.: Colonscopy in 5 years Notify Physician - If you experience excessive bleeding, unusual abdominal pain, fever, or chest pain, contact your doctor immediately. BOB JOHANSEN DO Sep 23, 2020 11:57
--- NOTE | 2020-09-23 12:23 | Anesthesia-General Post-Op ---
MAC Patient Condition Mental Status/LOC: Same as Preop Cardiovascular: Satisfactory Nausea/Vomiting: Absent Respiratory: Satisfactory Pain: Controlled Complications: Absent Post Op Complications Complications None Follow Up Care/Instructions Patient Instructions None needed. Anesthesiology Discharge Order Discharge Order Patient is doing well, no complaints, stable vital signs, no apparent adverse anesthesia problems. RORO FRANCO DO Sep 23, 2020 12:23
[2020-09-23 12:25] VITALS: BP 124/83
== END 2020-09-23 12:25 | disposition home or self-care (01) ==
LOC: ENDO 09:39
PROVIDERS: ATTEND Surgery
DX: D12.0 Benign neoplasm of cecum (principal); K57.32 Diverticulitis of large intestine without perforation or abscess without bleeding; K57.30 Diverticulosis of large intestine without perforation or abscess without bleeding; J40 Bronchitis, not specified as acute or chronic; I10 Essential (primary) hypertension; K21.9 Gastro-esophageal reflux disease without esophagitis; K44.9 Diaphragmatic hernia without obstruction or gangrene; E78.00 Pure hypercholesterolemia, unspecified; E11.9 Type 2 diabetes mellitus without complications; J30.2 Other seasonal allergic rhinitis; E66.01 Morbid (severe) obesity due to excess calories; Z68.33 Body mass index [BMI] 33.0-33.9, adult; Z88.0 Allergy status to penicillin; Z88.2 Allergy status to sulfonamides; Z86.718 Personal history of other venous thrombosis and embolism; Z79.01 Long term (current) use of anticoagulants; Z79.899 Other long term (current) drug therapy; Z86.711 Personal history of pulmonary embolism; Z88.5 Allergy status to narcotic agent; Z79.891 Long term (current) use of opiate analgesic; Z90.49 Acquired absence of other specified parts of digestive tract; Z90.89 Acquired absence of other organs; Z79.2 Long term (current) use of antibiotics; Z79.51 Long term (current) use of inhaled steroids
CPT/HCPCS: 88305

== ENCOUNTER 2021-05-03 08:39 | Emergency (ER) | payer MEDICARE, OTHER ==
[~2021-05-03] VITALS: Ht 165 cm; Wt 91.0 kg
[~2021-05-03 08:39] MED LIST changes: +CYCL10TA25 PO; -CYCL10TA9 PO; -LISI1TAB29 PO; +LISI1TAB44 PO; +ONDA-106 PO; -ONDA8TAB15 PO
--- OUTSIDE RECORDS SUMMARY | 2021-05-03 08:44 | XMS REPORT | Clinical Summary ---
Author Author [facility] Organization [facility] Address Unknown Phone Unavailable Care Team Providers Care Associate Media Director Name Role Phone Veronica Maye Red BARRAZA PCP Source Comments Some departments are not documenting in the electronic medical record. If you d o not see the information that you expected, contact Release of Information in [facility] [employer] Information Management department at [phone] for further assistan ce in locating additional records.[facility] Allergies Comments Active Allergy Reactions Severity Noted Date Codeine HEADACHE, Low 06/19/2017 NAUSEA AND VOMITING Metronidazole DIARRHEA, Low 06/19/2017 NAUSEA AND VOMITING Penicillin G RASH Medium 06/19/2017 Sulfamethoxazole-Trimetho NAUSEA ONLY, Low 06/08 prim STOMACH UPSET Medications End Date Status Medication Sig Dispensed Refills Start Date Active amLODIPine (NORVASC) 10 Take 10 mg by 0 mg tablet mouth daily. 8 Active cetirizine (ZYRTEC) 10 mg Take 10 mg by 0 tablet mouth every morning. Active docusate (COLACE) 100 mg Take 200 mg 0 capsule by mouth at bedtime daily. Active lisinopril-hydrochlorothi Take 1 tablet 0 06/08 azide (PRINZIDE, by mouth 8 ZESTORETIC) 10-12.5 mg daily. tablet Active gabapentin (NEURONTIN) Take 300 mg 0 300 mg capsule by mouth every 8 hours. Active rivaroxaban (XARELTO PO) Take by 0 mouth. Active traMADol (ULTRAM) 50 mg Take 50 mg by 0 tablet mouth every 6 hours as needed for Pain. Active cyclobenzaprine Take 10 mg by 0 (FLEXERIL) 10 mg tablet mouth three times daily as needed for Muscle Cramps. Active acetaminophen (TYLENOL Take 500 mg 0 EXTRA STRENGTH) 500 mg by mouth tablet every 6 hours as needed. Active Problems Problem Noted Date Endometrial cancer, FIGO stage IIIC 06/18/2017 Cancer Staging: Clinical stage from 08/09: FIGO Stage IIIC1 (cT1a, cN1a, cM0) - Signed by Rupinder Carbajal MD o n 08/09/2017 Overview: Formatting of this note is different fr om the original. CC: Stage IIIC Endometrial Adenocarcin prisca, MIS-H, ER+ REF:Twin Fields MD PCP: Maria Antonia Flynn APRN HPI: Ms Somers is a 74 yo . On 05/25/2017, she started to experience stabbing/shooting pain in her L side. She also noted vaginal bleeding (bloody mucous discharge). She was seen by her PCP, which lead to CT done on 05/30/17 which showed acute diverticulitis, without complications. Pelvic examination wnl's. EMB was collected and pathology showed acute an d chronic endocervicitis, no endometrium identified. She was placed on oral Levaquin x7 days followed by metronidazole, which she had to stop du e to abdominal upset. She continue to have LLQ and vaginal bleeding. She was referred to Dr. Fields: Pap smear 06/05/17 was negative. A sonogram was done on 06/07/17 that dem onstrated enlargement of the uterus, endometrial thickening measurin g 21 mm. Aggressive appearing heterogeneous echotexture / increased e chotexture material in the endometrium with possible invasion into the submucosal region and myometrium. Finding suspicious for larg e 3.4x2 cm endometrial carcinoma, possible with additional hemorrhagic ch anges. She is now being referred to my office for the first time (06/19/2017). Today she reports acute on chronic bron chitis, which started about a week ago. She was given Bactrim which she di scontined after 2 1/2 days due to stomach upset. She continues to have some cough. Her has been sick with coughing with similar symptoms. Her LUQ abdomina l pain still persists. It feels like a ball inside her abdomen pushing towar d the abdominal wall. TREATMENT: 1. INITIAL CONSULTATION: 06/19/2017 2. 06/20/2017: PCP visit. Seen for wheez ing, chest congestion, cough. Put on doxycycline, decadron injection and depo-medrol injection. Lowered BP medication dose due to her low BP durin g that visit. Scheduled for OR on 07/11/2017. 3. 07/11/2017: -PERLA, PA and PLND. Final pathology: A. Uterus, cervix, bilateral tubes and ovaries, hy sterectomy and bilateral salpingo-oophorectomy: Cervix: Nabothia n cyst. Uterus: Endometrioid endometrial carcin prisca, FIGO grade 2, invading 2mm out of 10mm myometrium. See comment. Fallop tamara tubes: Paratubal cysts. Ovaries: No diagnostic abnormalities. Lymph nodes (3), "lower para-aortic lym ph nodes", dissection: There is no evidence of malignancy in three lymph n odes (0/3). Lymph nodes (12), "right pelvic lymph nodes", dissection: Metastatic carcinoma (7 mm) in one of t welve lymph nodes (1/12). Lymph nodes (4), "right common iliac lymph no bakari", dissection: There is no evidence of malignancy in four lymph no bakari (0/4). Lymph nodes (19), "left pelvic lymph nodes", dissection: There is no evidence of malignancy in nineteen lymph nodes (0/19). 4. 07/16/2017: Called patient with resul ts. Based on PORTEC 3, recommend chemoradiation. In addition, her Tumor is ER+; KY+. MSI-H. 5. 08/10/2017: Presents to office for fi rst postoperative visit. Will make arrangements for treatment close to [facility]. Presented at Cancer Conference on 07/20/2017 and sandwich therapy recommen ded. Will need genetic testing. 6. 09/14/2017: Presents to office for fi nal postoperative visit. She has been seen by Dr. Rosales for chemotherapy . She was started on chemotherapy on 09/04/2017. C#3 given on 11/02/2017. 7. 11/20/2017: Presents for her 4 month visit. She has had 3 Cycles of carboplatin/taxol with Dr. Sims at [facility].. Last treatment was on 11/12/2017. She is sche duled to see radiation oncology on 11/23/2017. 8. 07/16/2018: she is now 12 months from surgery. She has now completed therapy. She was treated with chemoradi ation in a sandwich approach and completed 6 cycles of therapy. While I do not have those records, she should have completed therapy around - 03/2018. She still follows with Dr. Sims. 9. 01/21/2019: presents for 6 month vi sit. She is now approximately 1 year from end of therapy. CT from 01/18/2019: Impression CHEST: No thoracic metastatic disease. ABDOMEN AND PELVIS: 1. Interval decrease in size of a fluid attenuation lesion along the left external iliac vasculature which is lik melissa a postoperative seroma or lymphocele. 2. Moderate distal colonic diverticulos is without diverticulitis. 3. Unchanged mildly prominent periporta l lymph nodes, likely reactive. No enlarging abdominopelvic lymph nodes. 4. Development of subtle bilateral sacr al insufficiency fractures since July 2018. 1002/10/2020: presents to the office f or follow up. She is approximately 2 years from end of therapy. CT done today. See below OLDER RECORDS: Pathology: 1. [facility]: EMB: endome trium not identified. Acute and chronic endocervicitis. [id number] Radiology/procedures: 1. CT: Pelvic at [facility] on 05/30/2017: Moderate diverticulosis; moderate infiltrative s tranding surrounding the mid left colon, c/w active diverticulitis. Benig n appearing cyst left kidney. Fatty liveruterus, adnexal structures within normal limits. No pathologically enlarged retroperitoneal or mesenteric based lymph node 2. Ultrasound: [facility] t on 06/07/2017: Irregular margin of the endoemtrial thickening with the sub mucosal margin of the uterus with invasive characteristics into the submu cosa and myometrial clemens of the mid body and fundus of the uterus consisten t with invasive process. Left ovary not well seen. 4 x 4.7 x 3.6 cm ovary. Right ovary not well seen. No free fluid. PMH: 1. Skin cancer on nose 2. Arthritis and back pain 3. VTE on Eliquis in 2014: persented wi th leg pain 4. Diverticulitis 5. Kidney stones 6. Chronic bronchitis : several bronchi al issues with bronchitis and twice with PNA (2002, 2014). 7. HTN on amlodipine Drug allergies : 1. Penicillin(Rash) 2. Codeine (Vomiting) 3. Metronidazole (nausea, diarrhea) 4. Bactrim (nausea, diarrhea, abdominal pain) Health maintenance: Last tetanus - unclear Last flu shot 01/18/2017 Last Pneumonia shot 08/19/2015 PSH: 1. EMB 06/05/2017 2. Tonsillectomy in 4 3. Gallbladder surgery in 1970 4. Vericose vein surgery in 1996 5. Lumbar Hemilaminectomy in 1997 6. Appendectomy in 2007 - complicated b y post-op pancreatitis 7. Left knee replacement in 2010 [employer]: 1. 2. Menarche: 13 3. LMP/menopausal:22 years ago 4. OCP/ERT/HRT: OCP x 4 years. ERT x 6 months. Patches at age 49. 5. control-current: N/A 6. STDs: N/A 7. Sexually active: N/A 8. Fibroids/endometriosis: No 9. If premenopausal, menstrual pattern, normal: N/A 10. Last pap smear: 06/05/2017, normal SH: 1. Smoke: Denies 2. Drugs: Denies 3. ETOH: Denies 4. 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 Marital status: for 53 yrs(deborah martinez with her ) 6. Last colonoscopy: 2013 showing diver ticulosis 7. Last Mammogram: 2016 FH: 1. Cancer: Breast cancer in mother (52 ) 2. Other: Heart disease - father (65), HTN - father (60). Arthritis/Osteoporpsis - Mother and Fat her Surgical History Surgery Date Site/Laterality Comments COLONOSCOPY HX APPENDECTOMY 04/10/2007 - 04/09/2008 HX CHOLECYSTECTOMY 04/10/1970 - 04/09/1971 SKIN CANCER EXCISION KNEE REPLACEMENT 04/10/2007 - Left 04/09/2008 VEIN STRIPPING 04/10/1996 - 04/09/1997 LUMBAR LAMINECTOMY 04/10/1997 - 04/09/1998 TONSILLECTOMY HYSTERECTOMY, TOTAL 07/11/2017 Abdomen/Bilater HYSTERECT FABIAN ROBOT-ASSISTED BILATERAL ABDOMINAL al SALPINGO-OOPHORECTO MY, PELVIC AND PARA-AORTIC LYMPH NODE DISSECTION performed by Rupinder Guardado MD at [facility] Medical History Medical History Date Comments Infection Arthritis Back pain Cancer of skin Hypertension Osteoporosis Pancreatitis s/p appy GERD (gastroesophageal reflux disease) Osteoarthritis Diverticulosis Uterine mass Uterine mass DVT (deep venous thrombosis) (HCC) s/p vein strippi ng 1996 and in 04/2014 s/p PNA Pulmonary embolism (HCC) 04/2014 s/p PNA PONV (postoperative nausea and vomiting) Family History Medical History Relation Name Comments Arthritis-osteo Father Heart Disease Father Hypertension Father Arthritis-osteo Mother Cancer-Breast Mother Relation Name Status Comments Father Mother Social History Date Tobacco Use Types Packs/Day Years Used Never Smoker Smokeless Tobacco: Never Used Comments Alcohol Use Standard Drinks/Week No 0 (1 standard drink = 0.6 o z pure alcohol) Sex Assigned at Date Recorded Not on file Last Filed Vital Signs Reading Time Taken Comments Vital Sign 132/76 11/06/2020 10:16 AM CDT Blood Pressure 79 11/06/2020 10:16 AM CDT Pulse 36.8 C (98.2 F) 11/06/2020 10:16 AM CDT Temperature 16 11/06/2020 10:16 AM CDT Respiratory Rate 98% 11/06/2020 10:16 AM CDT Oxygen Saturation - - Inhaled Oxygen Concentration 88.7 kg (195 lb 9.6 oz) 11/06/2020 10:16 AM CDT Weight 165.1 cm (5' 5") 11/06/2020 10:16 AM CDT Height 32.55 11/06/2020 10:16 AM CDT Body Mass Index Plan of Treatment Health Maintenance Due Date Last Done Comments MEDICARE ANNUAL WELLNESS 1945 VISIT DTAP/TDAP VACCINES (1 - 1962 Tdap) HEPATITIS C SCREENING 1962 PHYSICAL (COMPREHENSIVE) 1962 EXAM SHINGLES RECOMBINANT 1994 VACCINE (1 of 2) OSTEOPOROSIS 2009 SCREENING/MONITORING PNEUMONIA (PPSV23) 2009 VACCINE (1 of 1 - PPSV23) INFLUENZA VACCINE 11/08/2020 01/25/2019, 01/11/2005, 02/12/2004 Implants Device Identifier Shelf Expiration Date Model / Serial / L ot Implanted Type Area Manufactur er [id number] / / [id number] Powerport Port CR Implanted: Federico Ovalle DO BARD:PERIP (Quantity not on file) HERAL VASC Description: Pt presented POWERPORT Id card. RIGHT side, CT 300psi, MRI 3T. 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 Care Teams Start Date End Date Associate Media Director Relationship Specialty 02/06/20 Maye Martin, DO PCP - General Internal [address] [place] [address]
--- NOTE | 2021-05-03 09:57 | ED Cough/URI ---
General Chief Complaint: Respiratory Problems Stated Complaint: DX W PNEUMONIA ON 04/30 Nursing Triage Note: PT CO OF RECENT PNEM DX 04/30 PT IS TAKING LEVAQUIN AND STATES NOT FEELING ANY BETTER PT DENIES FEVERS AT THIS X. PT WAS NOT TESTED FOR COVID Exam Limitations: no limitations (EDUARDO CHE STUDENT) History of Present Illness Date Seen by Provider: May 03, 2021 Time Seen by Provider: 09:30 Initial Comments Patient is a 75yoF who presents with chief complaint of productive cough and SOA. She states that she was diagnosed with "lower left pneumonia" at [facility] last Monday04/30/21 and given Levaquin which she has been taking as prescribed, last dose yesterday evening. She denies fever, nasal congestion, headache, and dysuria. She has had diarrhea. Her coughing fits make her feel nauseous and yesterday she spit up some water after coughing so hard. These coughing fits concerned her and she has had increasing SOA so she came to ED today. Patient was not tested for Covid at [facility] but she has had both Covid vaccines as well as a booster and influenza vaccine. Patient states that she has had an unusual sensation in her mouth since taking Levaquin. She describes it as "saw dust", not painful, and no amount of water can make the dryness better. She has no trouble swallowing liquid or foods and can take adequate breaths. She has been able to eat and sleep normally. Timing/Duration: week Severity/Quality: productive cough, sputum Modifying Factors: Improves With Coughing Associated Symptoms: shortness of breath (EDUARDO CHE STUDENT) Allergies and Home Medications Allergies Coded Allergies: Sulfa (Sulfonamide Antibiotics) (Verified Allergy, Mild, N/V, 08/24/17) codeine (Verified Allergy, Mild, N/V, 08/24/17) metronidazole (Verified Allergy, Mild, GI UPSET, 08/24/17) penicillin G (Verified Allergy, Mild, RASH, 08/24/17) Patient Home Medication List Home Medication List Reviewed: Yes (NEVIN ESTRADA MD) Amlodipine Besylate (Amlodipine Besylate) 10 Mg Tablet, 10 MG PO DAILY, (Reported) Entered as Reported by: MARIO FIGUEROA on 08/24/17 09 Benzonatate (Tessalon Perles) 100 Mg Capsule, 100 MG PO Q8H PRN for coughing Prescribed by: NEVIN ESTRADA on 05/03/21 1124 Cetirizine HCl (Zyrtec) 10 Mg Tablet, 10 MG PO DAILY, (Reported) Entered as Reported by: MARIO FIGUEROA on 08/24/17 0906 Cyclobenzaprine HCl (Cyclobenzaprine HCl) 10 Mg Tablet, 10 MG PO DAILY PRN for MUSCLE SPASMS, (Reported) Entered as Reported by: EDUARDO CORRAL on 09/29/17 1051 Doxycycline Hyclate (Doxycycline Hyclate) 100 Mg Tablet, 100 MG PO BID Prescribed by: NEVIN ESTRADA on 05/03/21 1124 Lisinopril/Hydrochlorothiazide (Lisinopril-Hctz 10-12.5 mg Tab) 1 Each Tablet, 1 TAB PO DAILY, (Reported) Entered as Reported by: MARIO FIGUEROA on 08/24/17 0906 Rivaroxaban (Xarelto) 20 Mg Tablet, 20 MG PO DAILY, (Reported) Entered as Reported by: MICHAEL REYNOLDS on 04/29/20 1206 Review of Systems Review of Systems Constitutional: No chills, No diaphoresis; dizziness; No fever EENTM: No blurred vision, No hoarseness, No nose congestion, No throat swelling Respiratory: cough, phlegm, short of breath, wheezing Cardiovascular: No edema, No palpitations Gastrointestinal: No abdominal pain; diarrhea; No dysphagia, No hematemesis, No melena; nausea; No vomiting Genitourinary: No dysuria, No frequency, No hematuria Musculoskeletal: No back pain, No joint pain, No muscle pain Skin: no symptoms reported Psychiatric/Neurological: No Symptoms Reported Hematologic/Lymphatic: No Symptoms Reported Immunological/Allergic: no symptoms reported (EDUARDO CHE STUDENT) Past Eisnmxn-Ggmvhn-Xpgynf Hx Patient Social History Tobacco Use?: No Substance use?: No Alcohol Use?: No Pt feels they are or have been: No (EDUARDO CHE) Immunizations Up To Date First/Initial COVID19 Vaccinat: 2020 Second COVID19 Vaccination John: 2020 Third COVID19 Vaccination Date: 2020 (BROADHURST,EDUARDO MED STUDENT) Seasonal Allergies Seasonal Allergies: Yes (EDUARDO CHE ETHERA STUDENT) Past Medical History Surgeries: Yes (L TKR, BACK, VARICOSE VEIN STRIPPING LEFT LEG, MECL, BACK- LUMBAR,port ) Appendectomy, Gallbladder, Hysterectomy, Joint Replacement, Orthopedic, Tonsillectomy, Vascular Surgery Respiratory: Yes Pneumonia, Chronic Bronchitis, Pulmonary Embolism Currently Using CPAP: No Currently Using BIPAP: No Cardiac: Yes Deep Vein Thrombosis, Hypertension Neurological: Yes Headaches /Migraines 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) 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, Menopausal Genitourinary: No Gastrointestinal: Yes Chronic Constipation, Diverticulosis Musculoskeletal: Yes Degenerate Disk Disease, Osteoporosis, Arthritis, Chronic Back Pain Endocrine: No HEENT: No Loss of Vision: Bilateral Hearing Impairment: Denies Cancer: Yes (ENDOMETRIAL, BASAL CELL NOSE) Skin Did You Recieve Any Treatments: Yes What Type of Treatment Did You: Chemotherapy, Radiation, Surgical Intervention Psychosocial: Yes Anxiety Integumentary: No Blood Disorders: Yes (DVT'S AND P.E.'S ) Adverse Reaction/Blood Tranf: No (N/A) (EDUARDO CHE ETHERA STUDENT) Family Medical History Cancer, Diabetes, Hypertension (YANEEDUARDO ETHERA STUDENT) Physical Exam Vital Signs - First Documented 05/03/21 08:48 Temp 36.7 Pulse 93 Resp 18 B/P (MAP) 171/92 (118) Pulse Ox 95 (NEVIN ESTRADA MD) Capillary Refill : Less Than 3 Seconds (MANBKEDUARDO ETHERA STUDENT) Height: 5'6.00" Weight: 198lbs. 0.0oz. 89.251990ma; 33.00 BMI Method:Stated General Appearance: WD/WN, no apparent distress HEENT: PERRL/EOMI, pharynx normal, pharyngeal erythema; No tonsillar exudate; other (oral mucosa moist appearing, no ulceration or erythema.) Neck: non-tender, full range of motion, supple, normal inspection Respiratory: chest non-tender, no respiratory distress, no accessory muscle use, decreased breath sounds Cardiovascular: regular rate, rhythm, no edema, no gallop, no murmur Gastrointestinal: normal bowel sounds, non tender, soft, no organomegaly, no pulsatile mass Extremities: normal range of motion, non-tender, normal inspection, no pedal edema, no calf tenderness, normal capillary refill 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/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 as tested, no motor/sensory deficits, alert, normal mood/affect, oriented x 3 Skin: normal color, warm/dry Lymphatic: no adenopathy (EDUARDO CHE STUDENT) Progress/Results/Core Measures Suspected Sepsis SIRS Temperature: Pulse: 93 Respiratory Rate: 18 Blood Pressure 171 /92 Mean: 118 (EDUARDO CHE STUDENT) Results/Orders Lab Results Laboratory Tests Test 05/03/21 08:56 Range/Units Influenza Type A (RT-PCR) Not Detected Not Detecte Influenza Type B (RT-PCR) Not Detected Not Detecte SARS-CoV-2 RNA (RT-PCR) Not Detected Not Detecte (NEVIN ESTRADA MD) My Orders Orders - NEVIN ESTRADA MD Covid 19 Inhouse Test (05/03/21 10:01) Chest 1 View, Ap/Pa Only (05/03/21 10:01) Influenza A And B By Pcr (05/03/21 10:01) Isolation Central Supply Req (05/03/21 10:01) (NEVIN ESTRADA MD) Vital Signs/I&O 05/03/21 05/03/21 08:48 11:49 Temp 36.7 Pulse 93 79 Resp 18 18 B/P (MAP) 171/92 (118) 104/71 Pulse Ox 95 95 (NEVIN ESTRADA MD) Vital Signs/I&O Capillary Refill : Less Than 3 Seconds (EDUARDO CHE STUDENT) Blood Pressure Mean: 118 Progress Note : Time: 11:21 Progress Note 75-year-old presents with a chief complaint of persistent coughing over the last week. Recently put on Levaquin for "pneumonia" diagnosed at [facility] on Monday. Patient has had posttussive emesis. No fevers chills, sore throat headache runny nose nausea or vomiting. Tested negative for Covid today. No influenza. Vital signs are stable. Room air sats 94 to 95% on room air. Patient requests to be changed over from Levaquin secondary to severe dry mouth" to another antibiotic. Physical exam remarkable for clear lungs, no significant respiratory distress. She is a little labored. Rest of her exam is benign. CXR negative We will change her to doxycycline for 7 days. Return precautions given. Follow-up with [facility]. (NEVIN ESTRADA MD) Diagnostic Imaging Diagonstic Imaging: Xray Plain Films/CT/US/NM/MRI: chest Comments [facility], [place] NAME: AZAR [facility] REC#: [id number] PT STATUS: REG ER : 1945 PHYSICIAN: NEVIN ESTRADA MD ADMIT DATE: 05/03/21/ER Signed Date of Exam:05/03/21 CHEST 1 VIEW, AP/PA ONLY INDICATION: Recent pneumonia. On antibiotics. Recheck EXAMINATION: Chest single view 05/03/2021 COMPARISON: 08/28/2017 FINDINGS: The heart is unremarkable. The pulmonary vasculature is normal. There are no infiltrates, effusions or pneumothorax. Postoperative changes seen in the cervical spine. IMPRESSION: 1. No acute cardiopulmonary process. Dictated by: Dictated on workstation # [id number] Dict: 05/03/21 1102 Trans: 05/03/21 1109 [facility] [id number] Interpreted by: JARRETT DOYLE MD Electronically signed by: JARRETT DOYLE MD 05/03/21 1109 (NEVIN ESTRADA MD) Departure Impression Primary Impression: Bronchitis Disposition: 01 HOME, SELF-CARE Condition: Stable Admissions Decision to Admit Reason: Admit from ER (General) (NEVIN ESTRADA MD) Departure-Patient Inst. Decision time for Depature: 11:23 (NEVIN ESTRADA MD) Referrals: NO,LOCAL PHYSICIAN (PCP) Primary Care Physician EDUARDO RAMOS APRN (Family) Primary Care Physician Patient Instructions: Acute Bronchitis Add. Discharge Instructions: Drink lots of fluids to stay well hydrated. Tessalon Perles for cough 3 times a day. Doxycycline for 7 days, twice a day. Follow up with [facility] in 2 weeks, return to the ER for any worsening or concerning symptoms. Scripts Benzonatate (TESSALON PERLES) 100 Mg Capsule 100 MG PO Q8H PRN for coughing, #30 CAP Prov: NEVIN ESTRADA MD 05/03/21 Doxycycline Hyclate (Doxycycline Hyclate) 100 Mg Tablet 100 MG PO BID, #14 TAB 0 Refills Prov: NEVIN ESTRADA MD 05/03/21 Verification and Attestation of Medical Student E/M Service A medical student performed and documented this service in my presence. I revie wed and verified all information documented by the medical student and made modifications to such information, when appropriate. I personally performed the physical exam and medical decision making. Nevin Estrada, May 04, 2021,06:13 (NEVIN ESTRADA MD) EDUARDO CHE MED STUDENT May 03, 2021 09:57 NEVIN ESTRADA MD May 03, 2021 11:25
--- NOTE | 2021-05-03 11:09 | Diagnostic Imaging Report ---
INDICATION: Recent pneumonia. On antibiotics. Recheck EXAMINATION: Chest single view 05/03/2021 COMPARISON: 08/28/2017 FINDINGS: The heart is unremarkable. The pulmonary vasculature is normal. There are no infiltrates, effusions or pneumothorax. Postoperative changes seen in the cervical spine. IMPRESSION: 1. No acute cardiopulmonary process. Dictated by: Dictated on workstation # [id number]
[2021-05-03] MEDS ORDERED: BENZ100C18 PO (11:24)
[2021-05-03] MEDS ORDERED: DOXY100T2 PO (11:24)
[2021-05-03 11:49] VITALS: BP 104/71
== END 2021-05-03 11:49 | disposition home or self-care (01) ==
LOC: EDUNIT# 08:39 → ER 08:41
DX: J40 Bronchitis, not specified as acute or chronic (principal); I10 Essential (primary) hypertension; Z86.718 Personal history of other venous thrombosis and embolism; Z20.822 Contact with and (suspected) exposure to COVID-19; Z79.01 Long term (current) use of anticoagulants
CPT/HCPCS: 71045; 87636

== ENCOUNTER 2022-06-28 09:16 | Emergency (ER) | payer MEDICARE, OTHER ==
[~2022-06-28] VITALS: Ht 165 cm; Wt 88.0 kg
[~2022-06-28 09:16] MED LIST changes: +BENZ100C18 PO; +DOXY100T2 PO
--- NOTE | 2022-06-28 10:21 | ED Respiratory ---
General Chief Complaint: Cough/Cold/Flu Symptoms Stated Complaint: CHEST CONGESTION | COUGH Nursing Triage Note: Patient ambulatory to ER room 09 w c/o chest congestion. Patient states she was diagnosed with Pneumonia May 23 and has been on numerous medications, but it isnt getting any better. hx of blood clot in the lungs. Source: patient, old records Exam Limitations: no limitations (SHAYNE CONTRERAS) History of Present Illness Date Seen by Provider: Jun 28, 2022 Time Seen by Provider: 09:42 Initial Comments Mrs. Stern is a 76 yo F with PMH of 5wks hx of PNA, chronic bronchitis and endometrial CA treated with hysterectomy, chemo and radiation who presents to the ED today with concern for increasing weakness in legs, coughing and SOA which has become worse over the last two days. She states that she feels these symptoms are consistent with the PNA which was first diagnosed on 05/23 in the urgent care where she received Cefpodoxine and Doxycyline. Upon follow up with her PCP, Dr. Potter on 05/25 she was switched to a prednisone tala and Levofloxicin. She has now completed her Rx as of yesterday and is not currently taking any abx. She now complains of worsening Sx over the last two days including leg weakness, coughing and SOA along with a fullness/tightness in her chest. She also voices concern for sepsis due to hearing about it from her neighbors. Timing/Duration: getting worse, changing over time Severity: mild Prior Episodes/Possible Cause: chronic episodes Modifying Factors: Improves With Albuterol Nebulizer, Improves With Antibiotics, Improves With Coughing Associated Symptoms: cough; No fever/chills; nasal drainage, shortness of breath (SHAYNE CONTRERAS) Allergies and Home Medications Allergies Coded Allergies: Sulfa (Sulfonamide Antibiotics) (Verified Allergy, Mild, N/V, 08/24/17) codeine (Verified Allergy, Mild, N/V, 08/24/17) metronidazole (Verified Allergy, Mild, GI UPSET, 08/24/17) penicillin G (Verified Allergy, Mild, RASH, 08/24/17) Patient Home Medication List Home Medication List Reviewed: Yes (NEVIN ESTRADA MD) Amlodipine Besylate (Amlodipine Besylate) 10 Mg Tablet, 10 MG PO DAILY, (Reported) Entered as Reported by: MARIO FIGUEROA on 08/24/17 0906 Benzonatate (Tessalon Perles) 100 Mg Capsule, 100 MG PO Q8H PRN for coughing Prescribed by: NEVIN ESTRADA on 05/03/21 1124 Cetirizine HCl (Zyrtec) 10 Mg Tablet, 10 MG PO DAILY, (Reported) Entered as Reported by: MARIO FIGUEROA on 08/24/17 0906 Cyclobenzaprine HCl (Cyclobenzaprine HCl) 10 Mg Tablet, 10 MG PO DAILY PRN for MUSCLE SPASMS, (Reported) Entered as Reported by: EDUARDO CORRAL on 09/29/17 1051 Doxycycline Hyclate (Doxycycline Hyclate) 100 Mg Tablet, 100 MG PO BID Prescribed by: NEVIN ESTRADA on 05/03/21 1124 Lisinopril/Hydrochlorothiazide (Lisinopril-Hctz 10-12.5 mg Tab) 1 Each Tablet, 1 TAB PO DAILY, (Reported) Entered as Reported by: MARIO FIGUEROA on 08/24/17 0906 Pantoprazole Sodium (Protonix) 40 Mg Tablet.dr, 40 MG PO DAILY Prescribed by: NEVIN ESTRADA on 06/28/22 1152 Rivaroxaban (Xarelto) 20 Mg Tablet, 20 MG PO DAILY, (Reported) Entered as Reported by: MICHAEL REYNOLDS on 04/29/20 1206 Review of Systems Review of Systems Constitutional: No chills, No fever; weakness EENTM: No hearing loss, No ear pain, No blurred vision, No eye pain, No vision loss, No mouth pain, No throat pain Respiratory: cough; No hemoptysis; phlegm, short of breath Cardiovascular: edema Gastrointestinal: No diarrhea, No loss of appetite, No nausea, No vomiting Genitourinary: No dysuria, No frequency Musculoskeletal: No back pain, No joint pain, No muscle pain, No muscle stiffness Skin: No change in color, No pruritus, No rash Psychiatric/Neurological: Denies Headache, Denies Numbness, Denies Paresthesia; Weakness Immunological/Allergic: grass allergy, pollen allergy (SHAYNE CONTRERAS) Past Mcpjope-Dxfoce-Kueavc Hx Patient Social History Tobacco Use?: No Substance use?: No Alcohol Use?: No (SHAYNE CONTRERAS) Immunizations Up To Date First/Initial COVID19 Vaccinat: unknown Second COVID19 Vaccination Jhon: 2020 Third COVID19 Vaccination Date: 2020 COVID19 Vaccine Drafter Tool Design: sarmad (SHAYNE CONTRERAS) Seasonal Allergies Seasonal Allergies: Yes (SHAYNE CONTRERAS) Past Medical History Surgeries: Yes (L TKR, BACK, VARICOSE VEIN STRIPPING LEFT LEG, MECL, BACK- LUMBAR,port ) Appendectomy, Gallbladder, Hysterectomy, Joint Replacement, Orthopedic, Tonsillectomy, Vascular Surgery Respiratory: Yes Pneumonia, Chronic Bronchitis, Pulmonary Embolism Currently Using CPAP: No Currently Using BIPAP: No Cardiac: Yes Deep Vein Thrombosis, Hypertension Neurological: Yes Headaches /Migraines 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) 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, 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 Genitourinary: No Gastrointestinal: Yes Chronic Constipation, Diverticulosis Musculoskeletal: Yes Degenerate Disk Disease, Osteoporosis, Arthritis, Chronic Back Pain Endocrine: No HEENT: No Loss of Vision: Bilateral Hearing Impairment: Denies Cancer: Yes (ENDOMETRIAL, BASAL CELL NOSE) Skin Did You Recieve Any Treatments: Yes What Type of Treatment Did You: Chemotherapy, Radiation, Surgical Intervention Psychosocial: Yes Anxiety Integumentary: No Blood Disorders: Yes (DVT'S AND P.E.'S ) Adverse Reaction/Blood Tranf: No (N/A) (SHAYNE CONTRERAS) Family Medical History Cancer, Diabetes, Hypertension (SHAYNE CONTRERAS) Physical Exam Vital Signs - First Documented 06/28/22 09:41 Temp 35.7 Pulse 84 Resp 16 B/P (MAP) 174/92 (119) Pulse Ox 95 O2 Delivery Room Air (NEVIN ETSRADA MD) Capillary Refill : Less Than 3 Seconds (SHAYNE CONTRERAS) Height: 5'6.00" Weight: 198lbs. 0.0oz. 89.678999xo; 32.00 BMI Method:Stated General Appearance: WD/WN, no apparent distress Eyes: Bilateral Eye Normal Inspection, Bilateral Eye PERRL, Bilateral Eye EOMI HEENT: PERRL/EOMI, normal ENT inspection, TMs normal, pharynx normal Neck: non-tender, full range of motion, supple, normal inspection Respiratory: chest non-tender, lungs clear, normal breath sounds, no respiratory distress, no accessory muscle use Cardiovascular: regular rate, rhythm, no murmur Gastrointestinal: normal bowel sounds, no organomegaly, no pulsatile mass Extremities: normal range of motion, non-tender, normal inspection, normal capillary refill 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, no motor/sensory deficits, alert, normal mood/affect, oriented x 3 Skin: normal color, warm/dry Lymphatic: no adenopathy (SHAYNE CONTRERAS) Progress/Results/Core Measures Suspected Sepsis SIRS Temperature: Pulse: 84 Respiratory Rate: 16 Blood Pressure 174 /92 Mean: 119 (SHAYNE CONTRERAS) Results/Orders My Orders Orders - NEVIN ESTRADA MD Chest Pa/Lat (2 View) (06/28/22 10:08) (NEVIN ESTRADA MD) Vital Signs/I&O 06/28/22 06/28/22 09:41 11:40 Temp 35.7 Pulse 84 83 Resp 16 20 B/P (MAP) 174/92 (119) 145/77 Pulse Ox 95 94 O2 Delivery Room Air Room Air (NEVIN ESTRADA MD) Vital Signs/I&O Capillary Refill : Less Than 3 Seconds (SHAYNE CONTRERAS) Blood Pressure Mean: 119 Progress Note : Time: 11:28 Progress Note Patient seen and evaluated by me. Evaluation today includes physical exam, single view chest x-ray. Pertinent physical exam findings, well-developed well- nourished elderly female in no acute distress. Room air oxygen saturations 95 to 96% with no increased work of breathing or distress noted. Lung sounds diminished posteriorly at the bases however no active wheezing, crackles. Heart is regular, not tachycardic. Trace pitting edema in her lower extremities. Neuro normal. No focal deficits. Differential diagnosis based on history and physical exam, pneumonia recurrence, PE, post viral/bacterial cough syndrome, exacerbation of chronic bronchitis, GERD. Chest x-ray reviewed, scarring in the right lung base noted without effusion, infiltrate or pneumothorax. Suspect this is more a chronic component of the patient's chronic bronchitis with persistent cough post pneumonia treatment. She has been taking some Tessalon Perles. Cough is minimally productive of light yellow sputum. She states her Robitussin in the medicine cabinet is , I recommended she get some new. Offered some hydrocodone elixir as she is allerg ic to codeine. She states she thinks her has some in his medicine cabinet. She has no acute clinical or objective findings to warrant further studies from the emergency department. She appears well-hydrated, no wheezing. Low clinical suspicion for pulmonary embolism as the patient is anticoagulated on Xarelto and states she has not missed any doses. She does have acid reducers in her medicine cabinet I recommended that she start taking those again over the course of the next 2 weeks. She is comfortable with plan of care. All questions have been sought and answered. Patient is stable for discharge (NEVIN ESTRADA MD) Diagnostic Imaging Diagonstic Imaging: Xray Plain Films/CT/US/NM/MRI: chest Comments [facility], [place] NAME: [facility] REC#: [id number] PT STATUS: REG ER : 1945 PHYSICIAN: NEVIN ESTRADA MD ADMIT DATE: 06/28/22/ER Draft Date of Exam:06/28/22 CHEST PA/LAT (2 VIEW) INDICATION: Shortness of breath PA and lateral chest obtained at 10:30 a.m. and compared to 05/03/2021. Heart is borderline in size. There is some linear scarring or atelectasis in the right midlung. There is no pneumothorax or pleural fluid or focal consolidation. IMPRESSION: Linear scarring or atelectasis in right midlung. No acute consolidation or pleural fluid. Dictated on workstation # [id number] Dict: 06/28/22 1031 Trans: 06/28/22 1036 [facility] [id number] Interpreted by: SONIA BLAIR MD Electronically signed by: (NEVIN ESTRADA MD) Departure Impression Primary Impression: Cough Qualified Codes: R05.2 - Subacute cough Disposition: HOME, SELF-CARE Condition: Stable Departure-Patient Inst. Decision time for Depature: 11:31 (NEVIN ESTRADA MD) Referrals: EDUARDO RAMOS APRN (PCP) Primary Care Physician [facility] (Family) Primary Care Physician Patient Instructions: Cough, Adult ED Add. Discharge Instructions: Drink plenty of fluids to stay well hydrated. A post pneumonia cough can last for up to 6 weeks after treatment. You can use over the counter Robitussin as directed on packaging for the cough. Hot tea with honey can help with cough as well. Continue to use your breathing treatments every 4-6 hours. Start your prescription acid business services vice president at night for the next 2 weeks as chronic reflux can worsen cough. Return to the Emergency Department for any fever, worsening shortness of breath or other emergent concerns. Please call and schedule a follow up appointment with your primary care pr ovider. Scripts Pantoprazole Sodium (Protonix) 40 Mg Tablet. 40 MG PO DAILY for 14 Days, #14 TAB Prov: NEVIN ESTRADA MD 06/28/22 Verification and Attestation of Medical Student E/M Service A medical student performed and documented this service in my presence. I reviewed and verified all information documented by the medical student and made modifications to such information, when appropriate. I personally performed the physical exam and medical decision making. Nevin Estrada, Jun 28, 2022,11:28 (NEVIN ESTRADA MD) Copy Copies To 1: CHILANGO HICKS DAVID Jun 28, 2022 10:21 NEVIN ESTRADA MD Jun 28, 2022 11:35
--- NOTE | 2022-06-28 10:36 | Diagnostic Imaging Report ---
INDICATION: Shortness of breath PA and lateral chest obtained at 10:30 a.m. and compared to 05/03/2021. Heart is borderline in size. There is some linear scarring or atelectasis in the right midlung. There is no pneumothorax or pleural fluid or focal consolidation. IMPRESSION: Linear scarring or atelectasis in right midlung. No acute consolidation or pleural fluid. Dictated by: Dictated on workstation # [id number]
[2022-06-28 11:40] VITALS: BP 145/77
[2022-06-28] MEDS ORDERED: PANT40TA2 PO (11:52)
== END 2022-06-28 11:40 | disposition home or self-care (01) ==
LOC: EDUNIT# 09:16 → ER 09:18
DX: R05.9 Cough, unspecified (principal); I10 Essential (primary) hypertension; I26.99 Other pulmonary embolism without acute cor pulmonale; Z79.01 Long term (current) use of anticoagulants
CPT/HCPCS: 71046

== ENCOUNTER 2022-07-17 08:07 | Emergency (ER) | payer MEDICARE, OTHER ==
[~2022-07-17] VITALS: Ht 165.1 cm; Wt 86.2 kg
[~2022-07-17 08:07] MED LIST changes: +PANT40TA2 PO
[2022-07-17] MEDS ORDERED: methylPREDNISolone 125 MG (Solu-MEDROL) VIAL IV STA (08:41)
--- NOTE | 2022-07-17 08:44 | ED Respiratory ---
General Chief Complaint: Respiratory Problems Stated Complaint: COUGH/SOA Nursing Triage Note: PT AMB TO RM 6 WITH COMPLAINT OF SOA AND COUGH. STATES HER SYMPTOMS WORSENED EARLIER THIS WEEK AND HAS BEEN HAVING TO SLEEP IN HER RECLINER. Source: patient History of Present Illness Date Seen by Provider: Jul 17, 2022 Time Seen by Provider: 08:26 Initial Comments PT ARRIVES VIA POV FROM HOME--[facility] PT STATES SHE HAS BEEN SICK SINCE MAY WITH COUGH AND DIFFICULTY BREATHING COUGH IS NON-PRODUCTIVE NO FEVER AT ANY TIME. CHEST HURTS FROM COUGHING WENT TO [facility] IN MAY AND WAS DX WITH PNEUMONIA AND WAS STARTED ON LEVAQUIN SHE STATES SHE GOT A LITTLE BETTER WHILE ON LEVAQUIN, BUT SYMPTOMS STARTED GETTING WORSE AFTER LEVAQUIN WAS FINISHED, SO ANOTHER ROUND OF LEVAQUIN WAS ORDERED. SHE HAD BEEN PRESCRIBED PREDNISONE IN MAY ALSO, ALONG WITH TESSALON PERLES SHE HAS BEEN TAKING OVER THE COUNTER MUCINEX DM AND ALLERGY PILLS SHE HAS BEEN USING ALBUTEROL NEBULIZER TWICE A DAY, AND OCCASIONALLY THREE TIMES A DAY. SHE DOES NOT HAVE ANY INHALERS. SHE WAS SEEN HERE 06/28/22 FOR THIS PROBLEM, CXR DONE, NO PNEUMONIA NOTED. GIVEN RX FOR PROTONIX NONE OF THESE HAVE HELPED. SHE STATES HER SYMPTOMS HAVE GOTTEN WORSE OVER THE LAST 2 WEEKS, AND REALLY BAD OVER THE LAST WEEK SHE STATES SHE CANNOT LAY DOWN OR SLEEP DUE TO COUGH AND SHORTNESS OF BREATH SHE HAS HISTORY OF CHRONIC BRONCHITIS, BUT STATES SHE HAS NEVER BEEN TOLD SHE HAS COPD OR EMPHYSEMA SHE IS LIFETIME NON-SMOKER SHE DOES NOT HAVE HOME O2 Allergies and Home Medications Allergies Coded Allergies: Sulfa (Sulfonamide Antibiotics) (Verified Allergy, Mild, N/V, 08/24/17) codeine (Verified Allergy, Mild, N/V, 08/24/17) metronidazole (Verified Allergy, Mild, GI UPSET, 08/24/17) penicillin G (Verified Allergy, Mild, RASH, 08/24/17) Patient Home Medication List Amlodipine Besylate (Amlodipine Besylate) 10 Mg Tablet, 10 MG PO DAILY, (Reported) Entered as Reported by: MARIO FIGUEROA on 08/24/17 0906 Benzonatate (Tessalon Perles) 100 Mg Capsule, 100 MG PO Q8H PRN for coughing Prescribed by: NEVIN ESTRADA on 05/03/21 1124 Cetirizine HCl (Zyrtec) 10 Mg Tablet, 10 MG PO DAILY, (Reported) Entered as Reported by: MARIO FIGUEROA on 08/24/17 0906 Cyclobenzaprine HCl (Cyclobenzaprine HCl) 10 Mg Tablet, 10 MG PO DAILY PRN for MUSCLE SPASMS, (Reported) Entered as Reported by: EDUARDO CORRAL on 09/29/17 1051 Doxycycline Hyclate (Doxycycline Hyclate) 100 Mg Tablet, 100 MG PO BID Prescribed by: NEVIN ESTRADA on 05/03/21 1124 Lisinopril/Hydrochlorothiazide (Lisinopril-Hctz 10-12.5 mg Tab) 1 Each Tablet, 1 TAB PO DAILY, (Reported) Entered as Reported by: MARIO FIGUEROA on 08/24/17 0906 Pantoprazole Sodium (Protonix) 40 Mg Tablet.dr, 40 MG PO DAILY Prescribed by: NEVIN ESTRADA on 06/28/22 1152 Rivaroxaban (Xarelto) 20 Mg Tablet, 20 MG PO DAILY, (Reported) Entered as Reported by: MICHAEL REYNOLDS on 04/29/20 1206 Past Fczbtlt-Sbelzm-Jmzpgf Hx Patient Social History Tobacco Use?: No Use of E-Cig and/or Vaping dev: No Substance use?: No Alcohol Use?: No Pt feels they are or have been: No Immunizations Up To Date First/Initial COVID19 Vaccinat: unknown Second COVID19 Vaccination John: unknown Third COVID19 Vaccination Date: unknown Seasonal Allergies Seasonal Allergies: Yes Past Medical History Surgeries: Yes (L TKR, BACK, VARICOSE VEIN STRIPPING LEFT LEG, MECL, BACK- LUMBAR,port ) Appendectomy, Gallbladder, Hysterectomy, Joint Replacement, Orthopedic, Tonsillectomy, Vascular Surgery Respiratory: Yes Pneumonia, Chronic Bronchitis, Pulmonary Embolism Currently Using CPAP: No Currently Using BIPAP: No Cardiac: Yes Deep Vein Thrombosis, Hypertension Neurological: Yes Headaches /Migraines 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) 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, 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 Genitourinary: No Gastrointestinal: Yes Chronic Constipation, Diverticulosis Musculoskeletal: Yes Degenerate Disk Disease, Osteoporosis, Arthritis, Chronic Back Pain Endocrine: No HEENT: No Loss of Vision: Bilateral Hearing Impairment: Denies Cancer: Yes (ENDOMETRIAL, BASAL CELL NOSE) Skin Did You Recieve Any Treatments: Yes What Type of Treatment Did You: Chemotherapy, Radiation, Surgical Intervention Psychosocial: Yes Anxiety Integumentary: No Blood Disorders: Yes (DVT'S AND P.E.'S ) Adverse Reaction/Blood Tranf: No (N/A) Family Medical History Cancer, Diabetes, Hypertension Physical Exam Vital Signs - First Documented 07/17/22 08:15 Temp 36.4 Pulse 74 Resp 11 B/P (MAP) 146/97 (113) Pulse Ox 95 O2 Delivery Room Air Capillary Refill : Less Than 3 Seconds Height: 5'6.00" Weight: 198lbs. 0.0oz. 89.493818nl; 31.00 BMI Method:Stated Progress/Results/Core Measures Suspected Sepsis SIRS Temperature: Pulse: 74 Respiratory Rate: 11 Laboratory Tests 07/17/22 08:52: White Blood Count 8.0 Blood Pressure 146 /97 Mean: 113 Laboratory Tests 07/17/22 08:52: Creatinine 0.96, INR Comment 1.3, Platelet Count 202, Total Bilirubin 0.7 Results/Orders Lab Results Laboratory Tests Test 07/17/22 08:46 07/17/22 08:52 Range/Units Influenza Type A (RT-PCR) Not Detected Not Detecte Influenza Type B (RT-PCR) Not Detected Not Detecte SARS-CoV-2 RNA (RT-PCR) Not Detected Not Detecte White Blood Count 8.0 4.3-11.0 10^3/uL Red Blood Count 4.87 3.80-5.11 10^6/uL Hemoglobin 14.9 11.5-16.0 g/dL Hematocrit 45 35-52 % Mean Corpuscular Volume 92 80-99 fL Mean Corpuscular Hemoglobin 31 25-34 pg Mean Corpuscular Hemoglobin Concent 33 32-36 g/dL Red Cell Distribution Width 14.7 H 10.0-14.5 % Platelet Count 202 130-400 10^3/uL Mean Platelet Volume 10.3 9.0-12.2 fL Immature Granulocyte % (Auto) 1 % Neutrophils (%) (Auto) 65 42-75 % Lymphocytes (%) (Auto) 19 12-44 % Monocytes (%) (Auto) 6 0-12 % Eosinophils (%) (Auto) 10 0-10 % Basophils (%) (Auto) 1 0-10 % Neutrophils # (Auto) 5.2 1.8-7.8 10^3/uL Lymphocytes # (Auto) 1.5 1.0-4.0 10^3/uL Monocytes # (Auto) 0.5 0.0-1.0 10^3/uL Eosinophils # (Auto) 0.8 H 0.0-0.3 10^3/uL Basophils # (Auto) 0.1 0.0-0.1 10^3/uL Immature Granulocyte # (Auto) 0.0 0.0-0.1 10^3/uL Prothrombin Time 16.7 H 12.2-14.7 SEC INR Comment 1.3 0.8-1.4 Activated Partial Thromboplast Time 35 24-35 SEC Sodium Level 143 135-145 MMOL/L Potassium Level 4.0 3.6-5.0 MMOL/L Chloride Level 107 98-107 MMOL/L Carbon Dioxide Level 23 21-32 MMOL/L Anion Gap 13 5-14 MMOL/L Blood Urea Nitrogen 11 7-18 MG/DL Creatinine 0.96 0.60-1.30 MG/DL Estimat Glomerular Filtration Rate 61 BUN/Creatinine Ratio 11 Glucose Level 102 70-105 MG/DL Calcium Level 9.6 8.5-10.1 MG/DL Corrected Calcium 9.5 8.5-10.1 MG/DL Magnesium Level 2.0 1.6-2.4 MG/DL Total Bilirubin 0.7 0.1-1.0 MG/DL Aspartate Amino Transf (AST/SGOT) 33 5-34 U/L Alanine Aminotransferase (ALT/SGPT) 29 0-55 U/L Alkaline Phosphatase 77 40-136 U/L Total Creatine Kinase 78 29-168 U/L Creatine Kinase MB 1.2 <6.6 NG/ML Myoglobin 67.6 10.0-92.0 NG/ML Troponin I < 0.028 <0.028 NG/ML B-Type Natriuretic Peptide 39.1 <100.0 PG/ML Total Protein 6.9 6.4-8.2 GM/DL Albumin 4.1 3.2-4.5 GM/DL My Orders Orders - JURGEN CHAVIRA DO Ed Iv/Invasive Line Start (07/17/22 08:27) Ekg Tracing (07/17/22 08:27) O2 (07/17/22 08:27) Monitor-Rhythm Ecg Trace Only (07/17/22 08:27) Chest 1 View, Ap/Pa Only (07/17/22 08:27) Bnp Reema (07/17/22 08:27) Cbc With Automated Diff (07/17/22 08:27) Comprehensive Metabolic Panel (07/17/22 08:27) Creatine Kinase (07/17/22 08:27) Creatine Kinase Mb (07/17/22 08:27) Magnesium (07/17/22 08:27) Protime With Inr (07/17/22 08:27) Partial Thromboplastin Time (07/17/22 08:27) Myoglobin Serum (07/17/22 08:27) Troponin I [place] (07/17/22 08:27) Covid 19 Inhouse Test (07/17/22 08:27) Influenza A And B By Pcr (07/17/22 08:27) Isolation Central Supply Req (07/17/22 08:27) Albuterol/Ipra Inhalation Soln (Duoneb I (07/17/22 08:45) Dexamethasone Injection (Decadron Injec (07/17/22 08:45) Rt Request For Service (07/17/22 08:41) Methylprednisolone Sod Succ (Solu-Medrol (07/17/22 08:41) Svn Small Volume Nebulizer (07/17/22 08:41) Ct Angio Chest W (R/O Pe) (07/17/22 09:24) Iohexol Injection (Omnipaque 350 Mg/Ml 1 (07/17/22 09:45) Received Contrast (Hold Metformin- Contr (07/17/22 09:45) Sodium Chloride Flush (Catheter Flush Sy (07/17/22 09:45) Ns (Ivpb) (Sodium Chloride 0.9% Ivpb Bag (07/17/22 09:45) Medications Given in ED Current Medications Medications Dose Ordered Sig/Lorena Route Start Time Stop Time Status Last Admin Dose Admin Albuterol/ Ipratropium 3 ml ONCE ONCE INH 07/17/22 08:45 07/17/22 08:46 DC 07/17/22 09:05 3 ML Dexamethasone Sodium Phosphate 20 mg ONCE ONCE IH 07/17/22 08:45 07/17/22 08:46 DC 07/17/22 09:05 20 MG Iohexol 100 ml ONCE ONCE IV 07/17/22 09:45 07/17/22 09:46 DC 07/17/22 09:50 74 ML Sodium Chloride 10 ml NEEDED PRN IV 07/17/22 09:45 07/17/22 09:50 10 ML Sodium Chloride 100 ml ONCE ONCE IV 07/17/22 09:45 07/17/22 09:46 DC 07/17/22 09:50 70 ML Vital Signs/I&O 07/17/22 07/17/22 08:15 09:02 Temp 36.4 Pulse 74 Resp 11 B/P (MAP) 146/97 (113) Pulse Ox 95 90 O2 Delivery Room Air Room Air Capillary Refill : Less Than 3 Seconds Blood Pressure Mean: 113 Diagnostic Imaging Comments CXR--PER RADIOLOGIST REPORT AT 922 FINDINGS: The heart size, mediastinal configuration, and pulmonary vascularity are within normal limits. There is no pleural effusion, pneumothorax, or pneumonia. The osseous structures are unremarkable. IMPRESSION: No acute cardiopulmonary abnormality. Reviewed: Reviewed by Me Departure Impression Primary Impression: Acute exacerbation of chronic bronchitis Disposition: HOME, SELF-CARE Condition: Stable Departure-Patient Inst. Decision time for Depature: 10:20 Referrals: EDUARDO RAMOS APRN (PCP) Primary Care Physician [facility] (Family) Primary Care Physician Patient Instructions: How to Use a Metered Dose Inhaler ED, How to Use a Nebulizer ED, Bronchitis, Adult ED, How to Use a Spacer Add. Discharge Instructions: LOTS OF CLEAR LIQUIDS--WATER, BROTH, JELLO, GATORADE YOU MAY TAKE TYLENOL AND MOTRIN NEEDED FOR PAIN OR FEVER STOP YOUR ALBUTEROL NEBULIZER, IT IS BEING REPLACED WITH A COMBINATION MEDICATION WITH ALBUTEROL IN IT. STOP MUCINEX DM KEEP YOUR APPOINTMENT WITH All discharge instructions reviewed with patient and/or family. Voiced understanding. Scripts Azithromycin (Zithromax) 500 Mg Tablet 500 MG PO DAILY for 5 Days, #5 TAB Prov: JURGEN CHAVIRA DO 07/17/22 Cefdinir (Cefdinir) 300 Mg Capsule 300 MG PO BID, #20 CAP Prov: JURGEN CHAVIRA DO 07/17/22 Ipratropium/Albuterol Sulfate (Iprat-Albut 0.5-3(2.5) mg/3 ml) 0.5 Mg-3 Mg (2.5 Mg Base)/3 Ml Ampul.neb 3 ML IH Q4H PRN for SHORTNESS OF BREATH, #1 EACH Prov: JURGEN CHAVIRA DO 07/17/22 Budesonide/Formoterol Fumarate (Symbicort 160-4.5 Mcg Inhaler) 160 Mcg-4.5 Mcg/Actuation Hfa.aer.ad 2 PUFF IH BID, #1 EA Prov: JURGEN CHAVIRA DO 07/17/22 Promethazine/Dextromethorphan (Promethazine-Dm Syrup) 6.25 Mg-15 Mg/5 Ml Syrup 5 ML PO Q4H for Cough, #200 ML Prov: JURGEN CHAVIRA DO 07/17/22 JURGEN CHAVIRA DO Jul 17, 2022 08:44
[2022-07-17] MEDS ORDERED: RT-ALBUTEROL/IPRATROPIUM 3 ML (DUONEB) VIAL INH ONE (08:45)
[2022-07-17 08:57] LABS: BASOPHILS # (AUTO) 0.1 10^3/uL (0.0-0.1); BASOPHILS % (AUTO) 1 % (0-10); EOSINOPHILS # (AUTO) 0.8 10^3/uL (0.0-0.3); EOSINOPHILS % (AUTO) 10 % (0-10); HEMATOCRIT 45 % (35-52); HEMOGLOBIN 14.9 g/dL (11.5-16.0); LYMPHOCYTES # (AUTO) 1.5 10^3/uL (1.0-4.0); LYMPHOCYTES % (AUTO) 19 % (12-44); MEAN CORPUSCULAR HEMOGLOBIN 31 pg (25-34); MEAN CORPUSCULAR HGB CONC 33 g/dL (32-36); MEAN CORPUSCULAR VOLUME 92 fL (80-99); MEAN PLATELET VOLUME 10.3 fL (9.0-12.2); MONOCYTES # (AUTO) 0.5 10^3/uL (0.0-1.0); MONOCYTES % (AUTO) 6 % (0-12); NEUTROPHILS # (AUTO) 5.2 10^3/uL (1.8-7.8); NEUTROPHILS % (AUTO) 65 % (42-75); PLATELET COUNT 202 10^3/uL (130-400)
[2022-07-17 09:08] LABS: ALBUMIN 4.1 GM/DL (3.2-4.5)
[2022-07-17 09:09] LABS: CHLORIDE 107 MMOL/L (98-107); SODIUM 143 MMOL/L (135-145)
[2022-07-17 09:10] LABS: CALCIUM 9.6 MG/DL (8.5-10.1)
[2022-07-17 09:11] LABS: GLUCOSE 102 MG/DL (70-105); TOTAL PROTEIN 6.9 GM/DL (6.4-8.2)
[2022-07-17 09:12] LABS: CARBON DIOXIDE 23 MMOL/L (21-32)
[2022-07-17 09:13] LABS: BILIRUBIN,TOTAL 0.7 MG/DL (0.1-1.0)
[2022-07-17 09:14] LABS: ALKALINE PHOSPHATASE 77 U/L (40-136)
[2022-07-17 09:15] LABS: CREATININE SERUM 0.96 MG/DL (0.60-1.30); GFR ESTIMATED 61
--- NOTE | 2022-07-17 09:15 | Diagnostic Imaging Report ---
INDICATION: Cough and dyspnea. Comparison is made with prior exam of 05/03/2021. FINDINGS: The heart size, mediastinal configuration, and pulmonary vascularity are within normal limits. There is no pleural effusion, pneumothorax, or pneumonia. The osseous structures are unremarkable. IMPRESSION: No acute cardiopulmonary abnormality. Dictated by: Dictated on workstation # [id number]
[2022-07-17 09:16] LABS: BUN/CREATININE RATIO 11; INR 1.3 (0.8-1.4); PROTHROMBIN TIME PATIENT 16.7 SEC (12.2-14.7)
[2022-07-17 09:17] LABS: ALANINE AMINOTRANSFERASE 29 U/L (0-55)
[2022-07-17 09:18] LABS: CREATINE KINASE 78 U/L (29-168)
[2022-07-17 09:25] LABS: CREATINE KINASE MB 1.2 NG/ML (<6.6)
[2022-07-17] MEDS ORDERED: NS 100 ML (IVPB) BAG IV ONE (09:45)
[2022-07-17] MEDS ORDERED: IOHEXOL 350 MG/ML 100 ML (OMNIPAQUE 350) VIAL IV ONE (09:45)
[2022-07-17] MEDS ORDERED: HOLD METFORMIN - RECEIVED CONTRAST 20 ML VIAL IV SCH (09:45)
[2022-07-17] MEDS ORDERED: CATHETER FLUSH 10 ML SYR IV PRN (09:45)
--- NOTE | 2022-07-17 10:03 | Diagnostic Imaging Report ---
INDICATION: Cough and dyspnea. FINDINGS: There is minimal discoid atelectasis or scarring in the left lung base. Heart size is normal. The thoracic aorta is normal in caliber without evidence of dissection. There are no filling defects within the pulmonary arteries to suggest pulmonary embolism. There is no pathologically enlarged adenopathy in the chest. There is no pleural or pericardial fluid. There is no pneumothorax. There are degenerative changes in the spine. There is a cyst in the left kidney. The remainder of intra-abdominal structures are unremarkable. IMPRESSION: No evidence of aortic aneurysm dissection or pulmonary embolism. Left renal cyst. Minimal scarring or atelectasis in the left lung base Dictated by: Dictated on workstation # [id number]
[2022-07-17] MEDS ORDERED: CEFD300C3 PO (10:30)
[2022-07-17] MEDS ORDERED: AZIT500T PO (10:30)
[2022-07-17] MEDS ORDERED: BUDE10.2 IH (10:30)
[2022-07-17] MEDS ORDERED: D-ME473S11 PO (10:30)
[2022-07-17] MEDS ORDERED: IPRA3AMP31 IH (10:30)
[2022-07-17 10:55] VITALS: BP 145/80
== END 2022-07-17 10:55 | disposition home or self-care (01) ==
LOC: EDUNIT# 08:07 → ER 08:10
DX: J42 Unspecified chronic bronchitis (principal); Z88.0 Allergy status to penicillin; Z88.2 Allergy status to sulfonamides; Z88.1 Allergy status to other antibiotic agents; Z20.822 Contact with and (suspected) exposure to COVID-19
CPT/HCPCS: 36415; 71045; 71275; 80053; 82550; 82553; 83735; 83874; 83880; 84484; 85025; 85610; 85730; 87636; 93005; 93041; 94640

== ENCOUNTER → 2022-08-29 | Outpatient (CLI) | payer MEDICARE, OTHER ==
[~2022-08-29] MED LIST changes: +AZIT500T PO; +BUDE10.2 IH; +CEFD300C3 PO; +IPRA3AMP31 IH; +PROM473S15 PO; +RT-ALBUTEROL SULF 2.5 MG/3 ML PRE-MIX VIAL INH ONE
== END ==
LOC: RT 12:45
PROVIDERS: ATTEND Nurse Practitioner Family
DX: J42 Unspecified chronic bronchitis (principal)
CPT/HCPCS: 94060; 94726; 94729